=== PATIENT | female | born 1940 | race Caucasian/White ===

== ENCOUNTER → 2017-11-14 13:38 | Outpatient (CLI) | payer MEDICARE, SELFPAY ==
[2017-11-14 16:26] LABS: T4 Free Direct 0.95 ng/dL (0.76-1.46); Thyroid Stim Hormone (TSH) 2.07 uIU/mL (0.358-3.74)
[2017-11-14 17:25] LABS: T3 Total - Triiodothyronine 0.93 ng/mL (0.6-1.81)
== END ==
PROVIDERS: Family Provider Family Medicine; PCP Family Medicine; Visit Provider Family Medicine
DX: E03.9 Hypothyroidism, unspecified (principal)
CPT/HCPCS: 36415; 84439; 84443; 84480

== ENCOUNTER → 2018-03-19 11:15 | Outpatient (CLI) | payer MEDICARE, SELFPAY ==
[2018-03-19 15:53] LABS: T4 Free Direct 0.79 ng/dL (0.76-1.46); Thyroid Stim Hormone (TSH) 3.18 uIU/mL (0.358-3.74)
[2018-03-20 08:55] LABS: T3 Total - Triiodothyronine 0.83 ng/mL (0.6-1.81)
== END ==
PROVIDERS: Family Provider Family Medicine; PCP Family Medicine; Visit Provider Family Medicine
DX: E03.9 Hypothyroidism, unspecified (principal)
CPT/HCPCS: 36415; 84439; 84443; 84480

== ENCOUNTER → 2018-05-22 10:45 | Outpatient (CLI) | payer MEDICARE, SELFPAY ==
[2018-05-22 12:56] LABS: Hemoglobin A1c 6.9 % (4.2-6.3)
[2018-05-22 13:02] LABS: AST(SGOT) 26 U/L (15-37); Alanine Aminotransfer ALT/SGPT 30 U/L (13-56); Albumin, Serum 3.7 g/dL (3.2-5.0); Alkaline Phosphatase 52 U/L (45-117); Anion Gap 12 (5-15); BUN 12 mg/dL (7-18); BUN/Creat Ratio 14.5 RATIO (10-20); Calcium,Total 8.9 mg/dL (8.5-10.1); Chloride 106 mmol/L (98-107); Creatinine, Serum 0.83 mg/dL (0.55-1.02); EST Glomerular Filtration Rate 71 mL/min (>60); Est Glom Filt Rate - Afr Amer 86 mL/min (>60); Globulin 3.8 g/dL (2.2-4.2); Glucose 116 mg/dL (74-106); Potassium 4.2 mmol/L (3.5-5.1); Protein, Total 7.5 g/dL (6.4-8.2); Sodium Level 142 mmol/L (136-145); Thyroid Stim Hormone (TSH) 4.01 uIU/mL (0.358-3.74)
== END ==
PROVIDERS: Visit Provider Family Medicine
DX: E11.9 Type 2 diabetes mellitus without complications (principal); E03.9 Hypothyroidism, unspecified; I10 Essential (primary) hypertension
CPT/HCPCS: 36415; 80053; 83036; 84443

== ENCOUNTER → 2019-02-17 | Outpatient (CLI) | payer MEDICARE, SELFPAY ==
[2019-02-17 12:43] LABS: Absolute Lymphocyte Count 2.06 X10^3/ul (0.83-4.51); Absolute Neutrophil Count 2.6 X10^3/uL (2.0-7.7); Basophil# 0.03 X10^3/uL; Basophil% 0.5 % (0-1); Eosinophil# 0.32 X10^3/uL; Eosinophils% 5.8 % (0-5); Hemoglobin 12.6 g/dl (12.0-15.0); Lymphocyte # 2.06 X10^3/ul (4.0); Lymphocyte % 37.3 % (19-41); Mean Corp Hgb Conc 33.2 g/gl (32-36); Mean Corpuscular Hgb 30.1 pg (27.0-32.0); Mean Corpuscular Volume 90.9 fL (81-99); Mean Platelet Vol. 9.3 fl (6.2-12.0); Monocyte# 0.51 X10^3/uL; Monocyte% 9.2 % (0-10); Neutrophil # 2.61 X10^3/uL (2.7-7.7); Neutrophil % 47.2 % (47-70); Platelet Count 313 K/mm3 (150-450); RBC Distribution Width CV 15.6 % (11.6-14.6); RBC Distribution Width SD 51.7 fl (35.1-43.9); Red Blood Count 4.18 M/mm3 (4.2-5.4); White Blood Count 5.5 K/mm3 (4.4-11.0)
[2019-02-17 12:44] LABS: POSITIVE COUNT NO; POSITIVE DIFFERENTIAL NO; POSITIVE MORPHOLOGY NO
[2019-02-17 13:17] LABS: ALB/GLOB Ratio 0.9 RATIO (0.9-2.4); AST(SGOT) 19 U/L (15-37); Alanine Aminotransfer ALT/SGPT 34 U/L (13-56); Albumin, Serum 3.6 g/dL (3.2-5.0); Alkaline Phosphatase 58 U/L (45-117); Anion Gap 8 (5-15); BUN 14 mg/dL (7-18); Calcium,Total 8.9 mg/dL (8.5-10.1); Chloride 107 mmol/L (98-107); Cholesterol 215 mg/dL (200); Creatinine, Serum 0.88 mg/dL (0.55-1.02); EST Glomerular Filtration Rate 66 mL/min (>60); Est Glom Filt Rate - Afr Amer 80 mL/min (>60); Globulin 4.1 g/dL (2.2-4.2); Glucose 145 mg/dL (74-106); High Density Lipoprotein 82 mg/dL; Potassium 4.5 mmol/L (3.5-5.1); Protein, Total 7.7 g/dL (6.4-8.2); Sodium Level 140 mmol/L (136-145); T4 Free Direct 0.74 ng/dL (0.76-1.46); Triglycerides 79 mg/dL; Very Low Density Lipoprotein 16 mg/dL (5-40)
[2019-02-17 13:44] LABS: Hemoglobin A1c 7.7 % (4.2-6.3)
== END | disposition home or self-care (01) ==
LOC: BFHLAB 08:43
PROVIDERS: Family Provider Family Medicine; PCP Family Medicine; Visit Provider Family Medicine
DX: E11.9 Type 2 diabetes mellitus without complications (principal); E03.9 Hypothyroidism, unspecified; E78.5 Hyperlipidemia, unspecified; R53.83 Other fatigue; Z51.81 Encounter for therapeutic drug level monitoring
CPT/HCPCS: 36415; 80053; 80061; 83036; 84439; 84443; 84480; 85025

== ENCOUNTER → 2019-06-04 | Outpatient (CLI) | payer MEDICARE, SELFPAY ==
[2019-06-09 12:08] LABS: Lyme IgG P18 Ab Present (.); Lyme IgG P23 Ab Present (.); Lyme IgG P28 Ab Present (.); Lyme IgG P30 Ab Absent (.); Lyme IgG P39 Ab Absent (.); Lyme IgG P41 Ab Present (.); Lyme IgG P45 Ab Absent (.); Lyme IgG P58 Ab Absent (.); Lyme IgG P66 Ab Absent (.); Lyme IgG P93 Ab Present (.); Lyme IgM P23 Ab Present (.); Lyme IgM P39 Ab Absent (.); Lyme IgM P41 Ab Present (.)
[2019-06-17 11:13] LABS: Lyme IgG WB Interpretation Positive (.); Lyme IgM WB Interpretation Positive (.)
== END | disposition home or self-care (01) ==
LOC: BFHLAB 11:17
PROVIDERS: Family Provider Family Medicine; PCP Family Medicine; Visit Provider Family Medicine
DX: A69.20 Lyme disease, unspecified (principal)
CPT/HCPCS: 36415; 86617

== ENCOUNTER → 2019-11-05 14:35 | Outpatient (CLI) | payer MEDICARE, SELFPAY ==
[2019-11-05 15:48] LABS: Absolute Lymphocyte Count 2.74 X10^3/uL (0.83-4.51); Absolute Neutrophil Count 3.5 X10^3/uL (2.0-7.7); Basophil# 0.03 X10^3/uL; Basophil% 0.4 % (0-1); Eosinophil# 0.21 X10^3/uL; Hematocrit 37.7 % (37-47); Hemoglobin 12.5 g/dL (12.0-15.0); Lymphocyte # 2.74 X10^3/ul (4.0); Lymphocyte % 38.5 % (19-41); Mean Corp Hgb Conc 33.2 g/dL (32-36); Mean Corpuscular Volume 90.6 fL (81-99); Mean Platelet Vol. 9.3 fl (6.2-12.0); Monocyte# 0.65 X10^3/uL; Monocyte% 9.1 % (0-10); NRBC Flagged by Analyzer 0 % (0-5); Neutrophil # 3.47 X10^3/uL (2.7-7.7); Neutrophil % 48.9 % (47-70); Platelet Count 353 K/mm3 (150-450); RBC Distribution Width CV 15.3 % (11.6-14.6); RBC Distribution Width SD 50.5 fl (35.1-43.9); Red Blood Count 4.16 M/mm3 (4.2-5.4); White Blood Count 7.1 K/mm3 (4.4-11.0)
[2019-11-05 16:26] LABS: Vitamin B12 1188 pg/mL (211-911); Vitamin D,25 Hydroxy 26.6 ng/mL (29.95-100.01)
[2019-11-05 16:27] LABS: AST(SGOT) 21 U/L (15-37); Alanine Aminotransfer ALT/SGPT 30 U/L (13-56); Alkaline Phosphatase 69 U/L (45-117); Anion Gap 5 (5-15); BUN 14 mg/dL (7-18); BUN/Creat Ratio 16.3 RATIO (10-20); Calcium,Total 9.4 mg/dL (8.5-10.1); Chloride 105 mmol/L (98-107); Cholesterol 256 mg/dL (200); Creatinine, Serum 0.86 mg/dL (0.55-1.02); EST Glomerular Filtration Rate 68 mL/min (>60); Est Glom Filt Rate - Afr Amer 82 mL/min (>60); Free T3 2.7 pg/mL (2.18-3.98); Globulin 4.1 g/dL (2.2-4.2); Glucose 76 mg/dL (74-106); High Density Lipoprotein 82 mg/dL; Potassium 3.9 mmol/L (3.5-5.1); Protein, Total 8.1 g/dL (6.4-8.2); Sodium Level 138 mmol/L (136-145); T4 Free Direct 0.82 ng/dL (0.76-1.46); Thyroid Stim Hormone (TSH) 4.28 uIU/mL (0.358-3.74); Triglycerides 94 mg/dL; Very Low Density Lipoprotein 19 mg/dL (5-40)
[2019-11-11 12:07] LABS: Lyme IgG P18 Ab Present (.); Lyme IgG P23 Ab Present (.); Lyme IgG P28 Ab Present (.); Lyme IgG P30 Ab Absent (.); Lyme IgG P39 Ab Present (.); Lyme IgG P41 Ab Present (.); Lyme IgG P45 Ab Absent (.); Lyme IgG P58 Ab Absent (.); Lyme IgG P66 Ab Absent (.); Lyme IgG P93 Ab Absent (.); Lyme IgM P23 Ab Present (.); Lyme IgM P39 Ab Absent (.); Lyme IgM P41 Ab Absent (.)
[2019-11-11 17:10] LABS: Lyme IgG WB Interpretation Positive (.); Lyme IgM WB Interpretation Negative (.)
== END ==
PROVIDERS: PCP Family Medicine; Visit Provider Family Medicine
DX: E03.9 Hypothyroidism, unspecified (principal); E11.9 Type 2 diabetes mellitus without complications; E78.5 Hyperlipidemia, unspecified; E55.9 Vitamin D deficiency, unspecified; R76.8 Other specified abnormal immunological findings in serum; R53.83 Other fatigue; E53.8 Deficiency of other specified B group vitamins
CPT/HCPCS: 36415; 80053; 80061; 82306; 82607; 84439; 84443; 84481; 85025; 86617

== ENCOUNTER → 2020-07-21 14:14 | Outpatient (CLI) | payer MEDICARE, SELFPAY ==
[2020-07-21 16:21] LABS: Absolute Lymphocyte Count 2.95 X10^3/uL (0.83-4.51); Absolute Neutrophil Count 3.7 X10^3/uL (2.0-7.7); Basophil# 0.04 X10^3/uL; Basophil% 0.5 % (0-1); Eosinophil# 0.35 X10^3/uL; Eosinophils% 4.4 % (0-5); Hematocrit 39.7 % (37-47); Lymphocyte # 2.95 X10^3/ul (4.0); Lymphocyte % 37.4 % (19-41); Mean Corp Hgb Conc 32.7 g/dL (32-36); Mean Corpuscular Hgb 30.5 pg (27.0-32.0); Mean Corpuscular Volume 93.2 fL (81-99); Mean Platelet Vol. 9.8 fl (6.2-12.0); Monocyte# 0.84 X10^3/uL; Monocyte% 10.7 % (0-10); NRBC Flagged by Analyzer 0 % (0-5); Neutrophil # 3.69 X10^3/uL (2.7-7.7); Neutrophil % 46.9 % (47-70); Platelet Count 338 K/mm3 (150-450); RBC Distribution Width CV 15.2 % (11.6-14.6); RBC Distribution Width SD 51.9 fl (35.1-43.9); Red Blood Count 4.26 M/mm3 (4.2-5.4); White Blood Count 7.9 K/mm3 (4.4-11.0)
[2020-07-21 16:34] LABS: Vitamin D,25 Hydroxy 30.2 ng/mL
[2020-07-21 16:38] LABS: Free T3 2.4 pg/mL (2.18-3.98); Magnesium 2.5 mg/dL (1.6-2.6); T4 Free Direct 0.79 ng/dL (0.76-1.46)
[2020-07-31 03:07] LABS: Lyme IgG P18 Ab Present (.); Lyme IgG P23 Ab Present (.); Lyme IgG P28 Ab Present (.); Lyme IgG P30 Ab Absent (.); Lyme IgG P39 Ab Present (.); Lyme IgG P41 Ab Present (.); Lyme IgG P45 Ab Absent (.); Lyme IgG P58 Ab Present (.); Lyme IgG P66 Ab Absent (.); Lyme IgG P93 Ab Absent (.); Lyme IgM P23 Ab Present (.); Lyme IgM P39 Ab Absent (.); Lyme IgM P41 Ab Absent (.)
[2020-07-31 14:30] LABS: Lyme IgG WB Interpretation Positive (.); Lyme IgM WB Interpretation Negative (.)
== END ==
PROVIDERS: PCP Family Medicine; Visit Provider Family Medicine
DX: E11.9 Type 2 diabetes mellitus without complications (principal); E78.5 Hyperlipidemia, unspecified; S20.369A Insect bite (nonvenomous) of unspecified front wall of thorax, initial encounter; W57.XXXA Bitten or stung by nonvenomous insect and other nonvenomous arthropods, initial encounter; R53.83 Other fatigue; E03.9 Hypothyroidism, unspecified; M79.10 Myalgia, unspecified site; E83.42 Hypomagnesemia; E55.9 Vitamin D deficiency, unspecified
CPT/HCPCS: 36415; 82306; 83735; 84439; 84443; 84481; 85025; 86617

== ENCOUNTER → 2020-08-11 10:28 | Outpatient (CLI) | payer MEDICARE, SELFPAY ==
[2020-08-11 13:04] LABS: ALB/GLOB Ratio 0.9 RATIO (0.9-2.4); AST(SGOT) 25 U/L (15-37); Alanine Aminotransfer ALT/SGPT 29 U/L (13-56); Albumin, Serum 3.7 g/dL (3.2-5.0); Alkaline Phosphatase 66 U/L (45-117); Anion Gap 5 (5-15); BUN 12 mg/dL (7-18); BUN/Creat Ratio 13.1 RATIO (10-20); Calcium,Total 8.7 mg/dL (8.5-10.1); Chloride 106 mmol/L (98-107); Cholesterol 236 mg/dL (200); Creatinine, Serum 0.91 mg/dL (0.55-1.02); EST Glomerular Filtration Rate 63 mL/min (>60); Est Glom Filt Rate - Afr Amer 76 mL/min (>60); Glucose 153 mg/dL (74-106); High Density Lipoprotein 85 mg/dL; Potassium 4.6 mmol/L (3.5-5.1); Protein, Total 7.7 g/dL (6.4-8.2); Sodium Level 138 mmol/L (136-145); Triglycerides 77 mg/dL; Very Low Density Lipoprotein 15 mg/dL (5-40)
== END ==
PROVIDERS: PCP Family Medicine; Visit Provider Family Medicine
DX: E11.9 Type 2 diabetes mellitus without complications (principal); E78.5 Hyperlipidemia, unspecified; S20.369A Insect bite (nonvenomous) of unspecified front wall of thorax, initial encounter; W57.XXXA Bitten or stung by nonvenomous insect and other nonvenomous arthropods, initial encounter; R53.83 Other fatigue; E03.9 Hypothyroidism, unspecified; M79.10 Myalgia, unspecified site; E83.42 Hypomagnesemia
CPT/HCPCS: 36415; 80053; 80061

== ENCOUNTER → 2021-04-27 09:16 | Outpatient (CLI) | payer MEDICARE, SELFPAY ==
[2021-04-27 09:22] LABS: Lyme Ab Screen Interpretation REF LAB
[2021-04-27 12:13] LABS: Absolute Lymphocyte Count 2.39 X10^3/uL (0.83-4.51); Absolute Neutrophil Count 3.4 X10^3/uL (2.0-7.7); Basophil# 0.03 X10^3/uL; Basophil% 0.5 % (0-1); Hematocrit 38.5 % (37-47); Hemoglobin 12.9 g/dL (12.0-15.0); Lymphocyte # 2.39 X10^3/ul (0.83-4.51); Mean Corp Hgb Conc 33.5 g/dL (32-36); Mean Corpuscular Hgb 30.9 pg (27.0-32.0); Mean Corpuscular Volume 92.3 fL (81-99); Mean Platelet Vol. 9.6 fl (6.2-12.0); Monocyte# 0.56 X10^3/uL; Monocyte% 8.4 % (0-10); NRBC Flagged by Analyzer 0 % (0-5); Neutrophil # 3.43 X10^3/uL (2.7-7.7); Neutrophil % 51.8 % (47-70); Platelet Count 366 K/mm3 (150-450); RBC Distribution Width CV 15.3 % (11.6-14.6); RBC Distribution Width SD 52.1 fl (35.1-43.9); Red Blood Count 4.17 M/mm3 (4.2-5.4); White Blood Count 6.6 K/mm3 (4.4-11.0)
[2021-04-27 12:31] LABS: Vitamin B12 1747 pg/mL (211-911); Vitamin D,25 Hydroxy 37.8 ng/mL
[2021-04-27 12:40] LABS: ALB/GLOB Ratio 0.9 RATIO (0.9-2.4); AST(SGOT) 21 U/L (15-37); Alanine Aminotransfer ALT/SGPT 32 U/L (13-56); Albumin, Serum 3.7 g/dL (3.2-5.0); Alkaline Phosphatase 56 U/L (45-117); Anion Gap 6 (5-15); BUN 11 mg/dL (7-18); BUN/Creat Ratio 14.3 RATIO (10-20); Calcium,Total 8.8 mg/dL (8.5-10.1); Chloride 105 mmol/L (98-107); Creatinine, Serum 0.77 mg/dL (0.55-1.02); EST Glomerular Filtration Rate 76 mL/min (>60); Est Glom Filt Rate - Afr Amer 92 mL/min (>60); Free T3 2.4 pg/mL (2.18-3.98); Globulin 4.2 g/dL (2.2-4.2); Glucose 137 mg/dL (74-106); Potassium 4.5 mmol/L (3.5-5.1); Protein, Total 7.9 g/dL (6.4-8.2); Sodium Level 137 mmol/L (136-145); T4 Free Direct 0.77 ng/dL (0.76-1.46); Thyroid Stim Hormone (TSH) 4.57 uIU/mL (0.358-3.74)
[2021-04-27 12:58] LABS: Hemoglobin A1c 7.5 % (3.8-5.6)
== END ==
PROVIDERS: PCP Family Medicine; Referring Provider Family Medicine; Visit Provider Family Medicine
DX: E11.9 Type 2 diabetes mellitus without complications (principal); E03.9 Hypothyroidism, unspecified; S20.369A Insect bite (nonvenomous) of unspecified front wall of thorax, initial encounter; W57.XXXA Bitten or stung by nonvenomous insect and other nonvenomous arthropods, initial encounter; E53.8 Deficiency of other specified B group vitamins; D64.9 Anemia, unspecified; E55.9 Vitamin D deficiency, unspecified; Z51.81 Encounter for therapeutic drug level monitoring
CPT/HCPCS: 36415; 80053; 82306; 82607; 83036; 84439; 84443; 84481; 85025; 86618

== ENCOUNTER → 2022-07-20 | Outpatient (CLI) | payer MEDICARE, SELFPAY ==
[2022-07-20 15:45] LABS: Lyme Ab Screen Interpretation REF LAB
== END | disposition home or self-care (01) ==
PROVIDERS: PCP Family Medicine; Visit Provider Family Medicine
DX: B94.8 Sequelae of other specified infectious and parasitic diseases (principal)
CPT/HCPCS: 36415; 86618

== ENCOUNTER → 2022-12-11 | Outpatient (CLI) | payer MEDICARE, SELFPAY | END | disposition home or self-care (01) | PROVIDERS: PCP Family Medicine; Visit Provider Ophthalmology | DX: H16.002 Unspecified corneal ulcer, left eye (principal); B00.52 Herpesviral keratitis | CPT/HCPCS: 87070; 87101; 87205 ==

== ENCOUNTER 2023-02-22 16:08 | Observation (INO) | payer MEDICARE, SELFPAY ==
[2023-02-22 16:09] VITALS: BP 169/60; PULSE 67; RESP 18; TEMP 36.2; O2SAT 96
--- NOTE | 2023-02-22 17:27 | EKG12_ITS ---
Test Reason : Blood Pressure : / mmHG Vent. Rate : 059 BPM Atrial Rate : 059 BPM P-R Int : 130 ms QRS Dur : 088 ms QT Int : 454 ms P-R-T Axes : 072 050 080 degrees QTc Int : 449 ms Sinus bradycardia Otherwise normal ECG Confirmed by SALINAS DEXTER, ROXY ([id number]), associate editor GARY LERMA ([id number]) on 02/23/2023 1:27:12 PM Referred By: TARYN Confirmed By:ROXY NIÑO MD
[2023-02-22 17:32] VITALS: BMI 28.3
[2023-02-22] MEDS: 0.9% Normal Saline 1,000 ML 1000 ML IV (17:38)
[2023-02-22 17:50] LABS: Absolute Lymphocyte Count 2.06 X10^3/uL (0.83-4.51); Absolute Neutrophil Count 3.1 X10^3/uL (2.0-7.7); Basophil# 0.03 X10^3/uL; Basophil% 0.5 % (0-1); Eosinophil# 0.02 X10^3/uL; Eosinophils% 0.3 % (0-5); Hematocrit 35.7 % (37-47); Lymphocyte # 2.06 X10^3/ul (0.83-4.51); Mean Corp Hgb Conc 33.6 g/dL (32-36); Mean Corpuscular Hgb 30.9 pg (27.0-32.0); Mean Platelet Vol. 8.4 fl (6.2-12.0); Monocyte# 0.65 X10^3/uL; Monocyte% 11.1 % (0-10); NRBC Flagged by Analyzer 0 % (0-5); Neutrophil # 3.09 X10^3/uL (2.7-7.7); Neutrophil % 52.6 % (47-70); POSITIVE MORPHOLOGY YES; Platelet Count 485 K/mm3 (150-450); RBC Distribution Width CV 15.4 % (11.6-14.6); RBC Distribution Width SD 52.4 fl (35.1-43.9); Red Blood Count 3.88 M/mm3 (4.2-5.4); White Blood Count 5.9 K/mm3 (4.4-11.0)
[2023-02-22] MEDS: Ondansetron 4 MG/2 ML Vial IV (17:51)
[2023-02-22] MEDS: Acetaminophen 500 MG Tablet 1000 MG PO (17:51)
[2023-02-22 18:05] LABS: Anion Gap 6 (5-15); BUN 6 mg/dL (7-18); BUN/Creat Ratio 8.7 RATIO (10-20); Calcium,Total 9.1 mg/dL (8.5-10.1); Chloride 98 mmol/L (98-107); Creatinine, Serum 0.69 mg/dL (0.55-1.02); EST Glomerular Filtration Rate 87 mL/min (>60); Est Glom Filt Rate - Afr Amer 105 mL/min (>60); Estimated Creatinine Clearance 32.17 ml/min; Glucose 134 mg/dL (74-106); Potassium 3.9 mmol/L (3.5-5.1); Sodium Level 130 mmol/L (136-145)
[2023-02-22 18:06] LABS: Differential Indicated SCAN CRITERIA MET
--- NOTE | 2023-02-22 18:12 | RAD_ITS ---
INDICATION: Cough EXAMINATION/TECHNIQUE: X-RAY - XR Chest 2 Views COMPARISON: None FINDINGS: LINES/DEVICES: None. LUNGS: Emphysematous. Bilateral lung base atelectasis/scarring. No consolidation, edema or effusion. No pneumothorax. MEDIASTINUM AND CARDIOVASCULAR STRUCTURES: Cardiac silhouette not enlarged. Central airways and mediastinal contour are unremarkable. RAD/Chest PA and Lateral IMPRESSION: Emphysematous lungs with bilateral basilar atelectasis/scarring. Electronically Signed: Bro Frederick MD at 18:33 EDT ,
[2023-02-22 18:19] LABS: Differential Comment SCANNED
--- NOTE | 2023-02-22 18:20 | EX.ED.DYSGE1 ---
HPI <MARLYN Crenshaw - Last Filed: 02/22/23 19:50> History of Present Illness Chief Complaint: Fever Narrative Narrative: Patient is an 82-year-old female with history of atrial fibrillation on Eliquis, hypothyroidism, diabetes who presents to the emergency department for ongoing weakness, intermittent fevers and chills. Patient was recently admitted for 1 week at [facility] for pneumonia, sepsis. She was discharged 5 days ago, she is still currently on Levaquin and has 2 more days left. Over the last 3 to 4 days, she states that she feels more tired, fevers and chills. She denies any nausea vomiting. Denies any abdominal pain. PFS <MARLYN Crenshaw - Last Filed: 02/22/23 19:50> [facility] Medical History Atrial fibrillation Essential hypertension Hypothyroidism Mixed hyperlipidemia Non-rheumatic mitral regurgitation Non-rheumatic tricuspid valve insufficiency Paroxysmal atrial fibrillation Post-Lyme disease syndrome Syncope and collapse Type 2 diabetes mellitus Home Medications glipizide 10 mg tablet 10 mg PO DAILY diabetes 07/18/22 [History Last Taken 02/22/23] timolol 0.5 % eye drops 1 drp ophthalmic (eye) BID glaucoma 07/18/22 [History Last Taken 02/22/23] apple cider vinegar 600 mg capsule 600 mg PO .COMPLEX supplement 07/27/22 [History Last Taken Unknown] diltiazem HCl 120 mg capsule,24 hr,extended release 120 mg PO DAILY #90 caps 07/27/22 [Rx Last Taken 02/22/23] garlic 500 mg capsule 500 mg PO .2-3x week supplement 07/27/22 [History Last Taken Unknown] insulin glargine 100 unit/mL (3 mL) subcutaneous pen (Basaglar KwikPen U-100 Insulin) 20 unit subcut QAM diabetes 07/27/22 [History Last Taken 02/22/23] turmeric 400 mg capsule 400 mg PO .COMPLEX supplement 07/27/22 [History Last Taken 02/22/23] ubidecarenone-omega 3-vit E 25 mg-150 (90-60) mg-200 unit capsule (Co K-[id number] E-Fish Oil) 1 cap PO .COMPLEX supplement 07/27/22 [History Last Taken Unknown] ascorbic acid (vitamin C) 1,000 mg tablet 1 g PO DAILY supplement 10/26/22 [History Last Taken 02/22/23] cholecalciferol (vitamin D3) 125 mcg (5,000 unit) tablet 125 mcg PO DAILY supplement 10/26/22 [History Last Taken 02/22/23] cyanocobalamin (vitamin B-12) 5,000 mcg tablet, immediate and extend release 5,000 mcg PO DAILY supplement 10/26/22 [History Last Taken 02/22/23] apixaban 5 mg tablet (Eliquis) 5 mg PO BID #180 tabs 12/25/22 [Rx Last Taken 02/22/23] amoxicillin 875 mg-potassium clavulanate 125 mg tablet 1 tab PO BID antibiotic 02/22/23 [History Last Taken 02/22/23] pantoprazole 40 mg tablet,delayed release 40 mg PO DAILY GERD 02/22/23 [History Last Taken 02/22/23] Allergy/AdvReac Type Severity Reaction Status Date / Time No Known Allergies Allergy Verified 02/22/23 16:09 Family History Mother Cancer Liver Brother Diabetes Cancer Lung Sister Hypertension Cancer Skin Surgical History no surgical history Social History Smoking Status: Never smoker alcohol intake: never substance use type: does not use caffeine: Yes Type: coffee Number of servings: 2 ROS <MARLYN Crenshaw - Last Filed: 02/22/23 19:50> ROS ED ROS Narrative Constitutional: Negative for weight loss. Positive fever and chills, weakness Eyes: Negative for vision loss, vision change, double vision ENT: Negative for any sore throat, ear pain, congestion Cardiovascular: Negative for any chest pain, tightness, palpitations Respiratory: Negative for any cough, sputum production, hemoptysis, dyspnea, dyspnea on exertion, orthopnea Gastrointestinal: Negative for any abdominal pain, nausea, vomiting, diarrhea, constipation, blood in stool, blood in vomit : Negative for any urinary frequency, dysuria, retention, blood in urine Muscle skeletal: Negative for any muscle joint pain, stiffness, myalgias, arthralgias, neck pain, back pain Neurological: Negative for any headache, syncope, numbness or tingling, dizziness Skin: Negative for any rashes, lumps, itching, abrasions, lacerations Psychiatric: Negative for any depression, anxiety, stress, suicidal ideation, homicidal ideation Hematologic: Negative for any easy bruising, excessive bruising, easy bleeding Allergies: Negative for any eczema, hives, rash EXAM <MARLYN Crenshaw - Last Filed: 02/22/23 19:50> Physical Exam Narrative Exam Narrative: Vital signs reviewed. Patient appears generally well. HEET: Head normocephalic atraumatic, TMs clear bilaterally. Posterior pharynx is clear, moist mucous membranes. Nares clear bilaterally. Neck: Supple with no lymphadenopathy or tenderness. No signs of meningismus, negative jolt sign. Cardiac: Regular rate and rhythm no murmurs gallops or rubs, equal peripheral pulses bilaterally. Respiratory: Lungs clear to auscultation bilaterally. Diminished in the bases. No chest tenderness. Abdomen: Soft, nontender, nondistended. No abdominal bruit or pulsatile masses. No hepatosplenomegaly Extremities: No peripheral edema, no signs of gross trauma or deformity. Active full range of motion of all extremities. Neuro: Cranial nerves II through XII intact, no focal neurological deficits. Skin: Clean dry and intact with no rash, purpura, petechiae, vesicles or pustules. Backs/flank: No CVA tenderness, no midline spinal tenderness, no deformity. Psych: Normal mood and affect. No SI, HI or acute psychosis. Const Vital Signs: 02/22/23 16:09 02/22/23 17:57 02/22/23 19:08 Temperature 97.2 F L Temperature Source Temporal Pulse Rate 67 61 Respiratory Rate 18 18 Respiratory Effort Normal Non-Labored Respiratory Pattern Normal Blood Pressure 169/60 H 104/70 Blood Pressure Mean 96 81 Pulse Ox 96 99 Oxygen Delivery Method Room Air Room Air <Dr. Bro Coppola MD - Last Filed: 02/22/23 23:09> Physical Exam Const Vital Signs: 02/22/23 16:09 02/22/23 17:57 02/22/23 19:08 Temperature 97.2 F L Temperature Source Temporal Pulse Rate 67 61 Respiratory Rate 18 18 Respiratory Effort Normal Non-Labored Respiratory Pattern Normal Blood Pressure 169/60 H 104/70 Blood Pressure Mean 96 81 Pulse Ox 96 99 Oxygen Delivery Method Room Air Room Air [facility] <MARLYN Crenshaw - Last Filed: 02/22/23 19:50> [facility] Lab Data Labs: Laboratory Results - last 24 hr 02/22/23 02/22/23 17:21 17:21 WBC 5.9 RBC 3.88 L Hgb 12.0 Hct 35.7 L MCV 92.0 MCH 30.9 MCHC 33.6 RDW Std Deviation 52.4 H RDW Coeff of Arturo 15.4 H Plt Count 485 H MPV 8.4 Immature Gran % (Auto) 0.500 Neut % (Auto) 52.6 Lymph % (Auto) 35.0 [place] % (Auto) 11.1 H Eos % (Auto) 0.3 Baso % (Auto) 0.5 Absolute Neuts (auto) 3.1 Absolute Lymphs (auto) 2.06 Nucleated RBC % 0 Differential Comment SCANNED Sodium 130 L Potassium 3.9 Chloride 98 Carbon Dioxide 26.0 Anion Gap 6 BUN 6 L Creatinine 0.69 Estim Creat Clear Calc 32.17 Est GFR (MDRD) Af Amer 105 Est GFR (MDRD) Non-Af 87 BUN/Creatinine Ratio 8.7 L Glucose 134 H Calcium 9.1 Radiography Diagnostic Testing: Clinical Impression(s) from Imaging Studies Chest X-Ray 02/22/23 18:12 IMPRESSION: Emphysematous lungs with bilateral basilar atelectasis/scarring. Electronically Signed: Bro Frederick MD at 18:33 EDT , EKG Sinus bradycardia: Comments: Sinus bradycardia, rate of 59 bpm, PA interval 130 ms, QRS duration 88 ms, no acute ST elevation, no acute infarct noted. Treatment and Re-Evaluation :: Patient appears well, patient appears nontoxic, vital signs are stable. All radiologic examinations were read, reviewed by the emergency department attending. From these reads, a plan of care will be put in place. Patient presents the emergency department for 3 days of worsening shortness of breath, fever, weakness. Patient states she is having difficulty doing her daily activities. She is concerned that she is having symptoms when she was at the hospital in [facility]. Patient did receive a full work-up including 2 sets of blood cultures. Patient's chest x-ray showed chronic changes, no acute process. Laboratory values show a normal CBC, patient's chemistries showed a hyponatremia with a sodium of 130, patient did receive COVID-19 and influenza screening, COVID-19 was positive. This would explain all the patient's symptoms of weakness, fever, chills, increased shortness of breath. I spoke with the patient's , this patient's son at length, they noticed that she is declining, she is not eating and drinking well, she is having difficulty doing daily activities. The patient will feel more comfortably admitted to hospital. After the patient's recent hospital admission for 1 week, only being out of the house for 5 days, and not doing well for 2 with a 5 days, I do believe it appropriate for admission. Spoke with hospitalist, there is no evidence of any bacterial pneumonia, patient will receive a urinalysis, patient stable for admission. <Dr. Bro Coppola MD - Last Filed: 02/22/23 23:09> [facility] Lab Data Labs: Laboratory Results - last 24 hr 02/22/23 02/22/23 17:21 17:21 WBC 5.9 RBC 3.88 L Hgb 12.0 Hct 35.7 L MCV 92.0 MCH 30.9 MCHC 33.6 RDW Std Deviation 52.4 H RDW Coeff of Arturo 15.4 H Plt Count 485 H MPV 8.4 Immature Gran % (Auto) 0.500 Neut % (Auto) 52.6 Lymph % (Auto) 35.0 [place] % (Auto) 11.1 H Eos % (Auto) 0.3 Baso % (Auto) 0.5 Absolute Neuts (auto) 3.1 Absolute Lymphs (auto) 2.06 Nucleated RBC % 0 Differential Comment SCANNED Sodium 130 L Potassium 3.9 Chloride 98 Carbon Dioxide 26.0 Anion Gap 6 BUN 6 L Creatinine 0.69 Estim Creat Clear Calc 32.17 Est GFR (MDRD) Af Amer 105 Est GFR (MDRD) Non-Af 87 BUN/Creatinine Ratio 8.7 L Glucose 134 H Calcium 9.1 Radiography Diagnostic Testing: Clinical Impression(s) from Imaging Studies Chest X-Ray 02/22/23 18:12 IMPRESSION: Emphysematous lungs with bilateral basilar atelectasis/scarring. Electronically Signed: Bro Frederick MD at 18:33 EDT , Treatment and Re-Evaluation :: Patient appears well, patient appears nontoxic, vital signs are stable. All radiologic examinations were read, reviewed by the emergency department attending. From these reads, a plan of care will be put in place. Patient presents the emergency department for 3 days of worsening shortness of breath, fever, weakness. Patient states she is having difficulty doing her daily activities. She is concerned that she is having symptoms when she was at the hospital in [facility]. Patient did receive a full work-up including 2 sets of blood cultures. Patient's chest x-ray showed chronic changes, no acute process. Laboratory values show a normal CBC, patient's chemistries showed a hyponatremia with a sodium of 130, patient did receive COVID-19 and influenza screening, COVID-19 was positive. This would explain all the patient's symptoms of weakness, fever, chills, increased shortness of breath. I spoke with the patient's , this patient's son at length, they noticed that she is declining, she is not eating and drinking well, she is having difficulty doing daily activities. The patient will feel more comfortably admitted to hospital. After the patient's recent hospital admission for 1 week, only being out of the house for 5 days, and not doing well for 2 with a 5 days, I do believe it appropriate for admission. Spoke with hospitalist, there is no evidence of any bacterial pneumonia, patient will receive a urinalysis, patient stable for admission. Anat Patient was seen by me. I agree with the above extenders note, note was done by both me and the PA as I may have edited some of the above. Discharge Plan Dx/Rx/DC Orders Clinical Impression: COVID-19, Weakness, Acute hyponatremia Disposition Disposition: [facility] Discharge Date/Time: 02/22/23 20:27
[2023-02-22 19:08] VITALS: BP 104/70; PULSE 61; RESP 18; O2SAT 99
--- NOTE | 2023-02-22 19:31 | PCM.HP.STD ---
[facility] - General General Date of Admission: 02/22/23 Date of Service: 02/22/23 Chief Complaint: weakness HPI Narrative SYLVAIN PERLA, is a 82 F with a significant history of atrial fibrillation on Cardizem and Eliquis; and diabetes mellitus who presents to the emergency department with weakness. Patient is so weak that she thought she was going to fall and the weakness has been getting progressively worse. Two weeks ago patient had nausea, a lot of dry heaving and occasional vomiting. Also she had diarrhea. She was admitted at [facility] and while at the hospital she developed pneumonia. She reported that imaging at that time showed that she had some viral GI infection. Her GI symptoms has since stopped. She was discharged from home 5 days ago and ever since she has felt weaker and weaker. Although she had high-grade fever when she was hospitalized at [facility]; now she has low-grade fever. She reports chills at night and diaphoresis. She has dysgeusia. Reportedly she was discharged on Augmentin and azithromycin. She has finished taking the course of azithromycin and she has 4 more days left of the Augmentin. She reports poor food and fluid intake. Occasionally she has no shortness of breath. A day before presentation her O2 sat was 89% but on the day of presentation her O2 sat was 93; and 95%. She reported that while at [facility] she was in A-fib with RVR and the plan was for her to have cardioversion. However she was told to come back in a week after her pneumonia has resolved. However, at this time she will see her local doctors and not go back to [facility] for the cardioversion. On presentation she was found to be positive for COVID-19. Of note patient reports that about a year ago she was diagnosed with COVID-19. At that time she took Paxlovid. She has not received the COVID-19 vaccination. [facility] Medical History Atrial fibrillation Essential hypertension Hypothyroidism Mixed hyperlipidemia Non-rheumatic mitral regurgitation Non-rheumatic tricuspid valve insufficiency Paroxysmal atrial fibrillation Post-Lyme disease syndrome Syncope and collapse Type 2 diabetes mellitus Home Medications glipizide 10 mg tablet 10 mg PO DAILY diabetes 07/18/22 [History Last Taken 02/22/23] timolol 0.5 % eye drops 1 drp ophthalmic (eye) BID glaucoma 07/18/22 [History Last Taken 02/22/23] apple cider vinegar 600 mg capsule 600 mg PO .COMPLEX supplement 07/27/22 [History Last Taken Unknown] diltiazem HCl 120 mg capsule,24 hr,extended release 120 mg PO DAILY #90 caps 07/27/22 [Rx Last Taken 02/22/23] garlic 500 mg capsule 500 mg PO .2-3x week supplement 07/27/22 [History Last Taken Unknown] insulin glargine 100 unit/mL (3 mL) subcutaneous pen (Basaglar KwikPen U-100 Insulin) 20 unit subcut QAM diabetes 07/27/22 [History Last Taken 02/22/23] turmeric 400 mg capsule 400 mg PO .COMPLEX supplement 07/27/22 [History Last Taken 02/22/23] ubidecarenone-omega 3-vit E 25 mg-150 (90-60) mg-200 unit capsule (Co [id number] E-Fish Oil) 1 cap PO .COMPLEX supplement 07/27/22 [History Last Taken Unknown] ascorbic acid (vitamin C) 1,000 mg tablet 1 g PO DAILY supplement 10/26/22 [History Last Taken 02/22/23] cholecalciferol (vitamin D3) 125 mcg (5,000 unit) tablet 125 mcg PO DAILY supplement 10/26/22 [History Last Taken 02/22/23] cyanocobalamin (vitamin B-12) 5,000 mcg tablet, immediate and extend release 5,000 mcg PO DAILY supplement 10/26/22 [History Last Taken 02/22/23] apixaban 5 mg tablet (Eliquis) 5 mg PO BID #180 tabs 12/25/22 [Rx Last Taken 02/22/23] amoxicillin 875 mg-potassium clavulanate 125 mg tablet 1 tab PO BID antibiotic 02/22/23 [History Last Taken 02/22/23] pantoprazole 40 mg tablet,delayed release 40 mg PO DAILY GERD 02/22/23 [History Last Taken 02/22/23] Allergy/AdvReac Type Severity Reaction Status Date / Time No Known Allergies Allergy Verified 02/22/23 16:09 Family History Mother Cancer Liver Brother Diabetes Cancer Lung Sister Hypertension Cancer Skin Surgical History no surgical history no surgical history Social History Smoking Status: Never smoker alcohol intake: never substance use type: does not use caffeine: Yes Type: coffee Number of servings: 2 ROS ROS Narrative Pertinent positives and pertinent negatives as noted in HPI. All other systems were reviewed and are negative Vital Signs Vital Signs Vital Signs: 02/22/23 16:09 02/22/23 17:57 02/22/23 19:08 Temperature 97.2 F L Temperature Source Temporal Pulse Rate 67 61 Respiratory Rate 18 18 Respiratory Effort Normal Non-Labored Respiratory Pattern Normal Blood Pressure 169/60 H 104/70 Blood Pressure Mean 96 81 Pulse Ox 96 99 Oxygen Delivery Method Room Air Room Air Weight Weight: 68.1 kg Body Mass Index (BMI) 28.3 Physical Exam Narrative Physical exam: General: Well-nourished, well-developed. Head: Normocephalic, atraumatic, no tenderness Eyes: Vision is grossly intact. EOMI ENT, no trauma, mildly dry mucous membranes, no rhinorrhea Neck: Nontender, No thyromegaly. CVS: Regular rate and rhythm. S1-S2 present. No murmur, gallop or rub. Respiratory : Rales at right base;, chest wall nontender Abdomen: Soft, nontender, nondistended, normal bowel sounds, no masses : Deferred Back: Nontender, no CVA tenderness, no midline spinal tenderness, deformities, step-offs Extremities: Nontender full range of motion, no trauma Skin: Normal color, no trauma, abrasions Neuro: Alert, oriented, cranial nerves II through XII grossly intact. Psychiatry: Normal mood. Normal affect. Not depressed. Not anxious. Results Lab / Micro Data Result Diagrams: 02/22/23 17:21 02/22/23 17:21 Labs: Laboratory Results - last 24 hr 02/22/23 17:21: WBC 5.9, RBC 3.88 L, Hgb 12.0, Hct 35.7 L, MCV 92.0, MCH 30.9, MCHC 33.6, RDW Std Deviation 52.4 H, RDW Coeff of Arturo 15.4 H, Plt Count 485 H, MPV 8.4, Immature Gran % (Auto) 0.500, Neut % (Auto) 52.6, Lymph % (Auto) 35.0, [place] % (Auto) 11.1 H, Eos % (Auto) 0.3, Baso % (Auto) 0.5, Absolute Neuts (auto) 3.1, Absolute Lymphs (auto) 2.06, Nucleated RBC % 0, Differential Comment SCANNED 02/22/23 17:21: Sodium 130 L, Potassium 3.9, Chloride 98, Carbon Dioxide 26.0, Anion Gap 6, BUN 6 L, Creatinine 0.69, Estim Creat Clear Calc 32.17, Est GFR (MDRD) Af Amer 105, Est GFR (MDRD) Non-Af 87, BUN/Creatinine Ratio 8.7 L, Glucose 134 H, Calcium 9.1 Micro: Microbiology 02/22/23 17:21 Nasal Secretion SARS-CoV-2 & FLU Antigen (Rapid) - Final SARS-CoV-2 (COVID 19) Radiology Impression Chest X-Ray 02/22/23 18:12 IMPRESSION: Emphysematous lungs with bilateral basilar atelectasis/scarring. Electronically Signed: Bro Frederick MD at 18:33 EDT , Assessment & Plan Assessment/Plan (1) Weakness: (2) COVID-19: PLAN: Plan Generalized weakness PT and OT to evaluate and treat. Case management consult. COVID-19 infection Impression of chest x-ray by radiologist: Emphysematous lungs with bilateral basilar atelectasis/scarring. Interpretation of chest x-ray by hospitalist: Agrees with radiology interpretation. On room air. Monitor. Hyponatremia Sodium of 130. Of note BUN is not elevated. BUN is rather low. Patient has mild dry mucous membrane and she has a poor intake. Additional level 2 weeks ago patient had vomiting and diarrhea which Contributed to her hyponatremia. Gentle IV hydration. Trend BMP. History of A-fib Stable Cardizem and Eliquis continued. Recent pneumonia: Continue Augmentin. Prophylaxis: Not indicated as patient is on Eliquis for A-fib and Eliquis has been continued. Charges/Coding Visit Charges Inpatient E&M: 41370 Init Hosp L2
[2023-02-22 19:54] VITALS: BP 137/69; PULSE 60; RESP 18; TEMP 36.5; O2SAT 97
[2023-02-22 19:58] LABS: Bacteria 0 SEEN /hpf (None Seen); Mucous, Urine 0 SEEN /hpf (<or=2+); Red Blood Cells-Urine 0 SEEN /hpf (0-5); Squamous Epithelial Cells - UA 0 SEEN /hpf (5-10); White Blood Cells 0 SEEN /hpf (0-5)
[2023-02-22 19:59] LABS: Color, Urine Yellow (Yellow); Glucose, Dipstick Normal (Normal); Ketone-Dipstick Negative (Negative); Leukocyte Esterase-Dipstick Negative /ul (Negative); Nitrite-Dipstick Negative (Negative); Occult Blood-Urine Negative /ul (Negative); Protein-Dipstick Negative (Negative); Specific Gravity, Urine 1.005 (1.002-1.030); Urine Bilirubin Dipstick Negative (Negative); Urine Clarity Clear (Clear); Urine Urobilinogen Normal (Normal)
[2023-02-22 20:31] VITALS: BMI 26.9
[2023-02-22 20:40] VITALS: BP 128/57; PULSE 60; RESP 18; TEMP 36.8; O2SAT 96
[2023-02-22] MEDS: APIXABAN 5 MG TABLET PO (22:55)
[2023-02-22] MEDS: 0.9% Saline Lock 10 ML Syringe IV (22:55)
[2023-02-22] MEDS: 0.9% Normal Saline 1,000 ML 75 ML IV (22:56)
[2023-02-22 23:30] VITALS: BP 135/71; PULSE 60; RESP 18; TEMP 36.4; O2SAT 97
[2023-02-22 23:56] LABS: Bedside Glucose 100 mg/dL (74-106)
[2023-02-23] VITALS (8 sets, daily range): BP systolic 88–133; BP diastolic 49–74; PULSE 65–91; RESP 18–20; TEMP 36.6–37.4; O2SAT 92–98
[2023-02-23 06:57] LABS: Absolute Lymphocyte Count 1.69 X10^3/uL (0.83-4.51); Absolute Neutrophil Count 4.5 X10^3/uL (2.0-7.7); Basophil# 0.03 X10^3/uL; Basophil% 0.4 % (0-1); Eosinophil# 0.01 X10^3/uL; Eosinophils% 0.1 % (0-5); Hematocrit 34.4 % (37-47); Hemoglobin 11.7 g/dL (12.0-15.0); Lymphocyte # 1.69 X10^3/ul (0.83-4.51); Lymphocyte % 24.6 % (19-41); Mean Corpuscular Hgb 31.5 pg (27.0-32.0); Mean Corpuscular Volume 92.7 fL (81-99); Mean Platelet Vol. 8.6 fl (6.2-12.0); Monocyte# 0.58 X10^3/uL; Monocyte% 8.4 % (0-10); NRBC Flagged by Analyzer 0 % (0-5); Neutrophil # 4.54 X10^3/uL (2.7-7.7); Neutrophil % 66.1 % (47-70); Platelet Count 477 K/mm3 (150-450); RBC Distribution Width CV 15.8 % (11.6-14.6); RBC Distribution Width SD 53.4 fl (35.1-43.9); Red Blood Count 3.71 M/mm3 (4.2-5.4); White Blood Count 6.9 K/mm3 (4.4-11.0)
[2023-02-23 07:19] LABS: ALB/GLOB Ratio 0.7 RATIO (0.9-2.4); AST(SGOT) 78 U/L (15-37); Alanine Aminotransfer ALT/SGPT 154 U/L (13-56); Albumin, Serum 2.8 g/dL (3.2-5.0); Alkaline Phosphatase 157 U/L (45-117); Anion Gap 8 (5-15); BUN 5 mg/dL (7-18); BUN/Creat Ratio 7.6 RATIO (10-20); Calcium,Total 8.5 mg/dL (8.5-10.1); Chloride 103 mmol/L (98-107); Creatinine, Serum 0.66 mg/dL (0.55-1.02); EST Glomerular Filtration Rate 91 mL/min (>60); Est Glom Filt Rate - Afr Amer 110 mL/min (>60); Estimated Creatinine Clearance 32.17 ml/min; Globulin 4.3 g/dL (2.2-4.2); Glucose 137 mg/dL (74-106); Protein, Total 7.1 g/dL (6.4-8.2); Sodium Level 133 mmol/L (136-145)
[2023-02-23 07:21] LABS: Bedside Glucose 140 mg/dL (74-106)
--- NOTE | 2023-02-23 07:35 | PCM.PN.HOSP ---
Reason for Visit Reason for Visit: Weakness Subjective Subjective Patient is an 82-year-old white female who presented to the emergency department at [facility] on 02/22/2023 with a chief complaint of generalized weakness. She indicated on presentation she was so weak that she thought she was going to fall and the weakness has progressively been getting worse. Patient indicated approximately 2 weeks ago she had a lot of nausea with dry heaving and occasional vomiting along with diarrhea. She was admitted at [facility] and while at the hospital developed pneumonia. She reported that she was diagnosed with some sort of GI viral infection at that time as well. Her GI symptoms have since resolved and she was discharged home 5 days ago and ever since that point time she has felt progressively weaker and weaker. She had high-grade fevers at [place] per her report however now she is complaining of low-grade fevers. She is complaining of chills and diaphoresis and dysgeusia. She was discharged on Augmentin and azithromycin and is finished her azithromycin and has 4 more days of the Augmentin. Her oral intake is poor due to decreased appetite. She has no shortness of breath. She was diagnosed with A-fib with RVR while at the hospital and is to have an outpatient cardioversion done in the near future once her acute illnesses had resolved. On presentation she was found to be positive for COVID-19 infection. She has had previous COVID-19 infection and was administered Paxil of it at that time. She is never been vaccinated. Vital signs are currently stable and she is on room air. Her CBC shows no white count or left shift. She has a very mild anemia and a thrombocytosis that is mild as well. Her chemistry panel shows mild hyponatremia which is improving since admission from 10 30-. Renal function is normal. She has mild transaminitis. Her UA was unremarkable. Chest x-ray showed only emphysematous changes and bilateral lung base scarring. I evaluated her in the day after admission. She was seen on the medical floor. Oral intake was improving and she states she really ate the first meal in the last few days this morning. Stated tasted good and feels like she is on the mend. Food intake has improved as well. Still somewhat weak and awaiting physical therapy and Occupational Therapy to evaluate her. Objective Data Objective Data Vital Signs: Vital Signs Temp Pulse Resp BP Pulse Ox O2 Del Method 99.4 F H 81 18 133/55 H 95 Room Air 02/23/23 06:53 02/23/23 06:53 02/23/23 06:53 02/23/23 06:53 02/23/23 06:53 02/23/23 06:53 Oxygen Delivery Method Room Air Weight: 64.7 kg Body Mass Index (BMI) 26.9 Intake & Output: Intake and Output for Last 24 Hours 02/21/23 02/22/23 02/23/23 23:59 23:59 23:59 Intake Total 1200 / 1200 200 / 200 Balance 1200 / 1200 200 / 200 Lab / Micro Data Result Diagrams: 02/23/23 06:35 02/23/23 06:35 Labs: Laboratory Results - last 24 hr 02/22/23 17:21: WBC 5.9, RBC 3.88 L, Hgb 12.0, Hct 35.7 L, MCV 92.0, MCH 30.9, MCHC 33.6, RDW Std Deviation 52.4 H, RDW Coeff of Arturo 15.4 H, Plt Count 485 H, MPV 8.4, Immature Gran % (Auto) 0.500, Neut % (Auto) 52.6, Lymph % (Auto) 35.0, [place] % (Auto) 11.1 H, Eos % (Auto) 0.3, Baso % (Auto) 0.5, Absolute Neuts (auto) 3.1, Absolute Lymphs (auto) 2.06, Nucleated RBC % 0, Differential Comment SCANNED 02/22/23 17:21: Sodium 130 L, Potassium 3.9, Chloride 98, Carbon Dioxide 26.0, Anion Gap 6, BUN 6 L, Creatinine 0.69, Estim Creat Clear Calc 32.17, Est GFR (MDRD) Af Amer 105, Est GFR (MDRD) Non-Af 87, BUN/Creatinine Ratio 8.7 L, Glucose 134 H, Calcium 9.1 02/22/23 19:52: Urine Color Yellow, Urine Clarity Clear, Urine pH 7.0, Ur Specific [place] 1.005, Urine Protein Negative, Urine Glucose (UA) Normal, Urine Ketones Negative, Urine Occult Blood Negative, Urine Nitrite Negative, Urine Bilirubin Negative, Urine Urobilinogen Normal, Ur Leukocyte Esterase Negative, Urine RBC 0 SEEN, Urine WBC 0 SEEN, Ur Squamous Epith Cells 0 SEEN, Urine Bacteria 0 SEEN, Urine Mucus 0 SEEN 02/22/23 23:12: POC Glucose 100 02/23/23 06:35: WBC 6.9, RBC 3.71 L, Hgb 11.7 L, Hct 34.4 L, MCV 92.7, MCH 31.5, MCHC 34.0, RDW Std Deviation 53.4 H, RDW Coeff of Arturo 15.8 H, Plt Count 477 H, MPV 8.6, Immature Gran % (Auto) 0.400, Neut % (Auto) 66.1, Lymph % (Auto) 24.6, [place] % (Auto) 8.4, Eos % (Auto) 0.1, Baso % (Auto) 0.4, Absolute Neuts (auto) 4.5, Absolute Lymphs (auto) 1.69, Nucleated RBC % 0 02/23/23 06:35: Sodium 133 L, Potassium 4.0, Chloride 103, Carbon Dioxide 22.0, Anion Gap 8, BUN 5 L, Creatinine 0.66, Estim Creat Clear Calc 32.17, Est GFR (MDRD) Af Amer 110, Est GFR (MDRD) Non-Af 91, BUN/Creatinine Ratio 7.6 L, Glucose 137 H, Calcium 8.5, Total Bilirubin 0.40, AST 78 H, ALT 154 H, Alkaline Phosphatase 157 H, Total Protein 7.1, Albumin 2.8 L, Globulin 4.3 H, Albumin/Globulin Ratio 0.7 L 02/23/23 06:52: POC Glucose 140 H Micro: Microbiology 02/22/23 17:21 Nasal Secretion SARS-CoV-2 & FLU Antigen (Rapid) - Final SARS-CoV-2 (COVID 19) Radiography Diagnostic Testing: Radiology Impression Chest X-Ray 02/22/23 18:12 IMPRESSION: Emphysematous lungs with bilateral basilar atelectasis/scarring. Electronically Signed: Bro Frederick MD at 18:33 EDT , Physical Exam Const alert, oriented x3, no apparent distress and well nourished Constitutional Narrative: Very pleasant, elderly, white female sitting up in a chair at the bedside, appears comfortable and nontoxic, watching television HEENT head/scalp atraumatic and moist oral mucous membranes HEENT Narrative: No thrush, Mallampati 2 Head and Scalp: normocephalic Resp normal respiratory effort, no retractions, no use of accessory muscles and clear to auscultation bilaterally Auscultation: Negative for rales, rhonchi or wheezes Cardio regular rate, regular rhythm, S1 normal heart sound, S2 normal heart sound, no murmurs, no rub, no gallops and no clicks GI normal to inspection, nondistended, normoactive bowel sounds, soft to palpation and non-tender Extremity no clubbing, cyanosis or edema Extremity Narrative: 2+ pedal pulses Neuro oriented x3, moves all extremities and no focal motor deficits Speech: speech normal Psych affect normal Psych Narrative: Very pleasant, appropriately interactive Assessment & Plan Assessment/Plan (1) COVID-19: (2) Weakness: (3) Acute hyponatremia: (4) Paroxysmal atrial fibrillation: (5) Transaminitis: (6) Thrombocytosis: PLAN: Plan Generalized weakness -Likely due to decreased p.o. intake and COVID-19 infection -PT/OT consultation -Case management/social work consultation for discharge planning and placement needs -Encourage mobility is much as possible to defend against further deconditioning Acute COVID-19 infection -Overall patient is fairly asymptomatic other than decreased p.o. intake and generalized weakness -Not requiring oxygen -Continue supportive care and therapy services Mild hyponatremia -Anticipate hypovolemic hyponatremia as p.o. intake has been poor per patient report and decreased appetite with likely decreased solute intake -Trending up -Continue to monitor -No intervention needed at this time Poor p.o. intake -Suspect related to acute COVID-19 infection -At risk for malnutrition -Add supplements Transaminitis -Likely related to acute COVID-19 infection. -This is new -We will trend -No acute intervention needed at this time or further work-up Thrombocytosis -Likely acute phase reactant -Continue to monitor Paroxysmal atrial fibrillation -Continue with apixaban -Continue diltiazem -Heart rates are controlled at this time -Rhythm is -Refer to outpatient cardiology for follow-up DM-2 -A.m. fasting blood sugars 137 -Home insulin basal dose is 20 units in the morning -Current dose 10 units due to decreased p.o. intake -Add SSI-medium dose -Accu-Cheks as ordered GERD -Continue PPI Recent pneumonia -Continue Augmentin to complete 4 more days History of hypothyroidism -Patient is not on any thyroid supplement -Check TSH DVT prophylaxis -Continue Eliquis CODE STATUS Full code Charges/Coding Visit Charges Inpatient E&M: 68347 Subs Hosp L2
[2023-02-23] MEDS: dilTIAZem CD 120 MG Capsule PO (09:16)
[2023-02-23] MEDS: Timolol 0.5% 5ML OPTH.BTL 1 DRP OPHTHALMIC (09:16)
[2023-02-23] MEDS: Cyanocobalamin 500 MCG Tablet PO (09:16)
[2023-02-23] MEDS: Cholecalciferol (Vit D3) 125 MCG CAPSULE (5,000 UNITS) PO (09:16)
[2023-02-23] MEDS: Pantoprazole Sodium 40 MG Tablet PO (09:16)
[2023-02-23] MEDS: Amox/Clavulanate 875 MG Tablet PO ×2 (09:16→16:38)
[2023-02-23] MEDS: APIXABAN 5 MG TABLET PO ×2 (09:16→22:30)
[2023-02-23] MEDS: Ascorbic Acid 500 MG Tablet 1000 MG PO (09:16)
[2023-02-23] MEDS: Insulin Glargine-YFGN 100 UNIT/ML Pen 10 UNIT SC (09:17)
[2023-02-23] MEDS: Insulin Lispro 100 UNIT/ML INSULN.PEN SC (11:34)
--- NOTE | 2023-02-23 11:56 | CASEMGMT ---
Per Bedside nurse, pt has a living will and HCPOA naming her spouse and is aware documents are not on file at [facility]. KIMBER Simmons
[2023-02-23 12:18] LABS: Bedside Glucose 162 mg/dL (74-106)
--- NOTE | 2023-02-23 13:26 | CASEMGMT ---
Noted PT did not recommend therapy, although OT did. TC to pt room, pt answered, discussed therapy options. Pt states she does not want any home therapy or therapy in general. She states her dil assists her at home. She denies any homegoing needs. WELL[place] LANDIS explained MART[employer] form, patient voiced understanding. Second witness verified pt understanding. Pt provided with a copy of signed MARTINEZ form. Patient had no further questions or concerns at this time.
[2023-02-23] MEDS: 0.9% Normal Saline 1,000 ML 75 ML IV (13:27)
[2023-02-23 17:12] LABS: Bedside Glucose 137 mg/dL (74-106)
[2023-02-23 23:11] LABS: Bedside Glucose 291 mg/dL (74-106)
[2023-02-24 02:02] VITALS: BP 116/76; PULSE 68; RESP 18; TEMP 36.6; O2SAT 96
[2023-02-24] MEDS: 0.9% Normal Saline 1,000 ML 75 ML IV (02:04)
[2023-02-24] MEDS: Insulin Lispro 100 UNIT/ML INSULN.PEN SC ×2 (07:00→11:30)
[2023-02-24 07:02] VITALS: BP 135/63; PULSE 74; RESP 18; TEMP 36.9; O2SAT 96
[2023-02-24 07:15] LABS: Absolute Lymphocyte Count 2.63 X10^3/uL (0.83-4.51); Absolute Neutrophil Count 5.4 X10^3/uL (2.0-7.7); Basophil# 0.04 X10^3/uL; Basophil% 0.5 % (0-1); Eosinophil# 0.02 X10^3/uL; Eosinophils% 0.2 % (0-5); Hematocrit 36.4 % (37-47); Hemoglobin 12.5 g/dL (12.0-15.0); Lymphocyte # 2.63 X10^3/ul (0.83-4.51); Lymphocyte % 30.2 % (19-41); Mean Corp Hgb Conc 34.3 g/dL (32-36); Mean Corpuscular Hgb 32.4 pg (27.0-32.0); Mean Corpuscular Volume 94.3 fL (81-99); Mean Platelet Vol. 8.6 fl (6.2-12.0); Monocyte# 0.59 X10^3/uL; Monocyte% 6.8 % (0-10); NRBC Flagged by Analyzer 0 % (0-5); Neutrophil # 5.39 X10^3/uL (2.7-7.7); Platelet Count 492 K/mm3 (150-450); RBC Distribution Width CV 16.1 % (11.6-14.6); RBC Distribution Width SD 55.5 fl (35.1-43.9); Red Blood Count 3.86 M/mm3 (4.2-5.4); White Blood Count 8.7 K/mm3 (4.4-11.0)
[2023-02-24 07:28] LABS: Bedside Glucose 151 mg/dL (74-106)
[2023-02-24 08:01] LABS: Anion Gap 6 (5-15); BUN 5 mg/dL (7-18); BUN/Creat Ratio 7.3 RATIO (10-20); Calcium,Total 8.8 mg/dL (8.5-10.1); Chloride 106 mmol/L (98-107); Creatinine, Serum 0.68 mg/dL (0.55-1.02); EST Glomerular Filtration Rate 87 mL/min (>60); Est Glom Filt Rate - Afr Amer 106 mL/min (>60); Estimated Creatinine Clearance 32.17 ml/min; Glucose 148 mg/dL (74-106); Potassium 4.3 mmol/L (3.5-5.1); Sodium Level 136 mmol/L (136-145)
[2023-02-24] MEDS: Amox/Clavulanate 875 MG Tablet PO (09:24)
[2023-02-24] MEDS: Pantoprazole Sodium 40 MG Tablet PO (09:24)
[2023-02-24] MEDS: APIXABAN 5 MG TABLET PO (09:25)
[2023-02-24] MEDS: Ascorbic Acid 500 MG Tablet 1000 MG PO (09:25)
[2023-02-24] MEDS: Timolol 0.5% 5ML OPTH.BTL 1 DRP OPHTHALMIC (09:25)
[2023-02-24] MEDS: Cholecalciferol (Vit D3) 125 MCG CAPSULE (5,000 UNITS) PO (09:25)
[2023-02-24] MEDS: Insulin Glargine-YFGN 100 UNIT/ML Pen 10 UNIT SC (09:25)
[2023-02-24] MEDS: dilTIAZem CD 120 MG Capsule PO (09:25)
[2023-02-24] MEDS: Cyanocobalamin 500 MCG Tablet PO (09:25)
[2023-02-24 09:33] VITALS: BP 125/52; PULSE 82; RESP 18; TEMP 36.9; O2SAT 96
[2023-02-24 10:07] LABS: Bedside Glucose 164 mg/dL (74-106)
[2023-02-24 11:53] LABS: Bedside Glucose 220 mg/dL (74-106)
--- NOTE | 2023-02-24 11:59 | DS.PCM_ITS ---
Providers Date of Admission: 02/22/23 Date of Discharge: 02/24/23 Primary Care Physician: Dr. Rylie Wilder DO Reason For Visit: GENERALIZED WEAKNESS Diagnosis Discharge Diagnosis (1) COVID-19: Status: Acute Code(s): U07.1 - COVID-19 (2) Weakness: Status: Acute Code(s): R53.1 - Weakness (3) Acute hyponatremia: Status: Acute Code(s): E87.1 - Hypo-osmolality and hyponatremia (4) Paroxysmal atrial fibrillation: Status: Acute Code(s): I48.0 - Paroxysmal atrial fibrillation (5) Transaminitis: Status: Acute Code(s): R74.01 - Elevation of levels of liver transaminase levels (6) Thrombocytosis: Status: Acute Code(s): D75.839 - Thrombocytosis, unspecified Medications at Discharge Home Medications glipizide 10 mg tablet 10 mg PO DAILY diabetes 07/18/22 timolol 0.5 % eye drops 1 drp ophthalmic (eye) BID glaucoma 07/18/22 apple cider vinegar 600 mg capsule 600 mg PO .COMPLEX supplement 07/27/22 diltiazem HCl 120 mg capsule,24 hr,extended release 120 mg PO DAILY #90 caps 07/27/22 garlic 500 mg capsule 500 mg PO .2-3x week supplement 07/27/22 insulin glargine 100 unit/mL (3 mL) subcutaneous pen (Basaglar KwikPen U-100 Insulin) 20 unit subcut QAM diabetes 07/27/22 turmeric 400 mg capsule 400 mg PO .COMPLEX supplement 07/27/22 ubidecarenone-omega 3-vit E 25 mg-150 (90-60) mg-200 unit capsule (Co S-60-Atfpqoc E-Fish Oil) 1 cap PO .COMPLEX supplement 07/27/22 ascorbic acid (vitamin C) 1,000 mg tablet 1 g PO DAILY supplement 10/26/22 cholecalciferol (vitamin D3) 125 mcg (5,000 unit) tablet 125 mcg PO DAILY supplement 10/26/22 cyanocobalamin (vitamin B-12) 5,000 mcg tablet, immediate and extend release 5,000 mcg PO DAILY supplement 10/26/22 apixaban 5 mg tablet (Eliquis) 5 mg PO BID #180 tabs 12/25/22 pantoprazole 40 mg tablet,delayed release 40 mg PO DAILY GERD 02/22/23 amoxicillin 875 mg-potassium clavulanate 125 mg tablet 1 tab PO BID antibiotic #1 TAB 02/24/23 Hospital Course Operations None Procedures None Summary of Care Provided Minutes Spent on Discharge: 25 Hospital Course: Patient is an 82-year-old white female who presented to the emergency department at [facility] on 02/22/2023 with a chief complaint of generalized weakness.? She indicated on presentation she was so weak that she thought she was going to fall and the weakness has progressively been getting worse.? Patient indicated approximately 2 weeks ago she had a lot of nausea with dry heaving and occasional vomiting along with diarrhea.? She was admitted at [facility] and while at the hospital developed pneumonia.? She reported that she was diagnosed with some sort of GI viral infection at that time as well.? Her GI symptoms have since resolved and she was discharged home 5 days ago and ever since that point time she has felt progressively weaker and weaker.? She had high-grade fevers at [place] per her report however now she is complaining of low-grade fevers.? She is complaining of chills and diaphoresis and dysgeusia.? She was discharged on Augmentin and azithromycin and is finished her azithromycin and has 4 more days of the Augmentin.? Her oral intake had been poor due to decreased appetite.? She had no shortness of breath.? She was diagnosed with A-fib with RVR while at the hospital and is to have an outpatient cardioversion done in the near future once her acute illnesses had resolved.? She was in normal sinus rhythm for her hospitalization. On presentation she was found to be positive for COVID-19 infection.? She has had previous COVID-19 infection and was administered Paxil of it at that time.? She is never been vaccinated.? Vital signs were stable and she remained on room air through her entire hospital course.? Her CBC shows no white count or left shift.? She has a very mild anemia and a thrombocytosis that is mild as well her resolved. I suspect her thrombocytosis was related to acute phase reactant.? Her chemistry panel showed mild hyponatremia which resolved at the time of discharge and I suspect it was hypovolemic hyponatremia due to decreased p.o. intake. Renal function was normal.? She has mild transaminitis from her COVID-19 infection.? Her UA was unremarkable.? Chest x-ray showed only emphysematous changes and bilateral lung base scarring. She was initially treated with IV fluids due to her decreased p.o. intake and evaluated by physical and Occupational Therapy. She did not qualify for any other treatment for COVID-19 as she was not hypoxic. P.o. intake and improved dramatically and she was tolerating diet well without any issues both on 02/23/2023 and 02/25/2020 3 in the morning. She did develop a sore throat overnight from 02 23-02 24 and on appearance it looked slightly red and viral in nature with no exudates. We did obtain a rapid strep and that was negative. Culture was pending and I will monitor these after discharge however we will hold off on any further antibiotic use that she is already on Augmentin for her previous pneumonia which she is to complete on 02/26/2023. We instructed her to stop taking this dose after that day as she was treated while she was hospitalized. She was seen by therapy services and they did not recommend any ongoing physical therapy. Occupational Therapy recommended some outpatient therapy however the patient indicated she did not want any further outpatient and did not feel that she needed it. She was able to be discharged home in stable condition on 02/24/2023. I did advise her that she can use some lozenges or a numbing spray for her throat if needed. Her pharyngitis did not appear to be affecting her oral intake. No medication changes were made during her hospital course. Discharge diagnoses: Generalized weakness-improving Acute COVID-19 infection Mild hyponatremia-resolved Pharyngitis secondary to COVID-19 infection Poor p.o. intake-resolved Transaminitis secondary to COVID-19 infection Thrombocytosis Paroxysmal atrial fibrillation DM-2 GERD Recent pneumonia History of hypothyroidism Physical Exam Narrative Patient did state that her throat was sore and she wanted to stay another night because of this. We discussed that was flat likely viral related to her acute COVID-19 and it did not seem to be inhibiting her oral intake. We did discuss that she may use lozenges. We did check a rapid strep which was negative and indicated we will discharge her later in the day until she can get adequate help at home. She did not require any therapy other than occupational therapy and stated she did not want any therapy at all. Const alert, oriented x3, no apparent distress, average body habitus, no limitations, healthy appearing and well nourished Constitutional Narrative: Very pleasant, elderly, white female sitting up in bed, appears comfortable and nontoxic, watching television and talking on the phone General Appearance: cooperative, comfortable, well kempt and well developed Orientation / Consciousness: awake, oriented to person, oriented to place and oriented to time Exam Limitations: no limitations HEENT normocephalic, head/scalp atraumatic, hearing grossly normal bilaterally and moist oral mucous membranes HEENT Narrative: Mild erythema on the superior posterior pharynx, no exudates, Mallampati 2, no thrush Eyes PERRL, EOMs intact bilaterally and conjunctivae normal Resp normal respiratory effort, no retractions, no use of accessory muscles and clear to auscultation bilaterally Auscultation: Negative for rales, rhonchi or wheezes Cardio regular rate, regular rhythm, S1 normal heart sound, S2 normal heart sound, no murmurs, no rub, no gallops and no clicks GI normal to inspection, nondistended, normoactive bowel sounds, soft to palpation and non-tender Extremity no clubbing, cyanosis or edema Extremity Narrative: 2+ pedal pulses Neuro oriented x3, CN's II-XII intact bilaterally, moves all extremities, no focal motor deficits and no sensory deficits noted Neuro Narrative: Mild proximal generalized weakness but strength is fairly good overall Speech: speech normal Psych affect normal Psych Narrative: Very pleasant, appropriately interactive Weight / BMI Weight Weight: 64.7 kg Body Mass Index (BMI) 26.9 ABG / Lab / Microbiology Data Result Diagrams: 02/24/23 06:43 02/24/23 06:43 Laboratory: Laboratory Results - last 24 hr 02/23/23 11:32: POC Glucose 162 H 02/23/23 16:36: POC Glucose 137 H 02/23/23 22:28: POC Glucose 291 H 02/24/23 06:43: WBC 8.7, RBC 3.86 L, Hgb 12.5, Hct 36.4 L, MCV 94.3, MCH 32.4 H, MCHC 34.3, RDW Std Deviation 55.5 H, RDW Coeff of Arturo 16.1 H, Plt Count 492 H, MPV 8.6, Immature Gran % (Auto) 0.300, Neut % (Auto) 62.0, Lymph % (Auto) 30.2, [place] % (Auto) 6.8, Eos % (Auto) 0.2, Baso % (Auto) 0.5, Absolute Neuts (auto) 5.4, Absolute Lymphs (auto) 2.63, Nucleated RBC % 0 02/24/23 06:43: Sodium 136, Potassium 4.3, Chloride 106, Carbon Dioxide 24.0, Anion Gap 6, BUN 5 L, Creatinine 0.68, Estim Creat Clear Calc 32.17, Est GFR (MDRD) Af Amer 106, Est GFR (MDRD) Non-Af 87, BUN/Creatinine Ratio 7.3 L, Glucose 148 H, Calcium 8.8 02/24/23 06:59: POC Glucose 151 H 02/24/23 09:24: POC Glucose 164 H 02/24/23 11:29: POC Glucose 220 H Microbiology: Microbiology 02/24/23 09:15 Interface Orders Group A Streptococcus Rapid Screen - Preliminary 02/22/23 17:21 Nasal Secretion SARS-CoV-2 & FLU Antigen (Rapid) - Final SARS-CoV-2 (COVID 19) D/C Instructions Discharge Diet: 1800 Calorie Control Diet Discharge Activity: Return to Normal Activity Meaningful Use Info Meaningful Use Diagnoses (Choose all that apply): None applicable Discharge Plan Admission Admit Date/Time: 02/22/23 19:40 Primary Reason for Your Visit: Generalized weakness Attending Provider: Jo Abarca Primary Care Provider: Rylie Wilder Consulting Providers: Frederick Devries Instructions Additional Instructions / Restrictions: 1. Avoid contact with people for 5 days through 02/25/2023 and please wear a mask when around people through 03/02/2023 to avoid the spread of COVID-19 infection 2. Your rapid strep test is negative. Your sore throat is likely viral related to COVID-19. Okay to utilize lozenges or sprays to help with comfort. Discharge Orders/Prescriptions Prescriptions: Continued turmeric 400 mg capsule 400 mg PO .COMPLEX Rx Instructions: 400 mg orally 2-3 x per week; Co Q-94-[place] E-Fish Oil 25-150-200 mg-mg-unit capsule 1 cap PO .COMPLEX Rx Instructions: 1 cap orally 2-3 x week; garlic 500 mg capsule 500 mg PO .2-3x week apple cider vinegar 600 mg capsule 600 mg PO .COMPLEX Rx Instructions: 600 mg orally 2-3x week; diltiazem HCl 120 mg capsule,extended release 24 hr 120 mg PO DAILY Qty: 90 3RF cholecalciferol (vitamin D3) 125 mcg (5,000 unit) tablet 125 mcg PO DAILY cyanocobalamin (vitamin B-12) 5,000 mcg tablet, IR and ER, biphasic 5,000 mcg PO DAILY glipizide 10 mg tablet 10 mg PO DAILY timolol 0.5 % drops 1 drp ophthalmic (eye) BID insulin glargine [Basaglar KwikPen U-100 Insulin] 100 unit/mL (3 mL) insulin pen 20 unit subcut QAM ascorbic acid (vitamin C) 1,000 mg tablet 1 g PO DAILY pantoprazole 40 mg tablet,delayed release (DR/EC) 40 mg PO DAILY Label Comments: TAKE 40 MILLIGRAMS (1 TABLET,DELAYED RELEASE (DR/EC)) ORALLY DAILY amoxicillin-pot clavulanate 875-125 mg tablet 1 tab PO BID Qty: 1 0RF Label Comments: TAKE 1 TABLET BY MOUTH TWICE A DAY Rx Instructions: Okay to stop antibiotic after doses on 02/26/2023 Eliquis 5 mg tablet 5 mg PO BID Qty: 180 3RF Referrals / Follow Up: Rylie Wilder DO [Primary Care Provider] - Within 2 Weeks Disposition Disposition (needs filled in before D/C Order can be placed): Home, Self Care Charges/Coding Visit Charges Inpatient E&M: 73497 Disch Hosp
[2023-02-24 12:03] VITALS: BP 113/56; PULSE 75; RESP 18; TEMP 37.3; O2SAT 96
== END 2023-02-24 13:10 | disposition home or self-care (01) ==
LOC: ED 19:50 → MS3 20:05
PROVIDERS: Nurse Practitioner; Admitting Provider Hospitalist; Emergency Provider Emergency Medicine; PCP Family Medicine; Visit Provider Internal Medicine
DX: U07.1 COVID-19 (principal); I48.0 Paroxysmal atrial fibrillation; E11.9 Type 2 diabetes mellitus without complications; Z79.4 Long term (current) use of insulin; E87.1 Hypo-osmolality and hyponatremia; D64.9 Anemia, unspecified; K21.9 Gastro-esophageal reflux disease without esophagitis; I10 Essential (primary) hypertension; R74.01 Elevation of levels of liver transaminase levels; Z79.01 Long term (current) use of anticoagulants; Z79.84 Long term (current) use of oral hypoglycemic drugs; E78.2 Mixed hyperlipidemia; Z79.899 Other long term (current) drug therapy; E03.9 Hypothyroidism, unspecified
CPT/HCPCS: 36415; 71046; 80048; 80053; 81001; 82962; 85025; 87040; 87428; 87880; 93005; 96361; 96374; 97162; 97166; 99221; 99252; 99284; J7030; A4216; G0378; G0463; J2405

== ENCOUNTER → 2023-03-07 | Outpatient (CLI) | payer MEDICARE, SELFPAY ==
[2023-03-07 17:39] LABS: Absolute Neutrophil Count 2.8 X10^3/uL (2.0-7.7); Basophil# 0.05 X10^3/uL; Basophil% 0.6 % (0-1); Eosinophil# 0.14 X10^3/uL; Eosinophils% 1.7 % (0-5); Hematocrit 33.3 % (37-47); Hemoglobin 10.9 g/dL (12.0-15.0); Lymphocyte % 53.5 % (19-41); Mean Corp Hgb Conc 32.7 g/dL (32-36); Mean Corpuscular Hgb 30.6 pg (27.0-32.0); Mean Corpuscular Volume 93.5 fL (81-99); Mean Platelet Vol. 8.8 fl (6.2-12.0); Monocyte# 0.74 X10^3/uL; Monocyte% 9.2 % (0-10); NRBC Flagged by Analyzer 0 % (0-5); Neutrophil # 2.75 X10^3/uL (2.7-7.7); Neutrophil % 34.3 % (47-70); Platelet Count 487 K/mm3 (150-450); RBC Distribution Width CV 15.4 % (11.6-14.6); RBC Distribution Width SD 52.6 fl (35.1-43.9); Red Blood Count 3.56 M/mm3 (4.2-5.4)
[2023-03-07 18:17] LABS: ALB/GLOB Ratio 0.6 RATIO (0.9-2.4); AST(SGOT) 30 U/L (15-37); Alanine Aminotransfer ALT/SGPT 35 U/L (13-56); Albumin, Serum 3.1 g/dL (3.2-5.0); Alkaline Phosphatase 79 U/L (45-117); Anion Gap 6 (5-15); BUN 6 mg/dL (7-18); BUN/Creat Ratio 7.9 RATIO (10-20); Calcium,Total 9.1 mg/dL (8.5-10.1); Chloride 103 mmol/L (98-107); Creatinine, Serum 0.76 mg/dL (0.55-1.02); EST Glomerular Filtration Rate 77 mL/min (>60); Est Glom Filt Rate - Afr Amer 94 mL/min (>60); Globulin 4.8 g/dL (2.2-4.2); Glucose 168 mg/dL (74-106); Potassium 4.4 mmol/L (3.5-5.1); Protein, Total 7.9 g/dL (6.4-8.2); Sodium Level 135 mmol/L (136-145)
[2023-03-13 00:06] LABS: Lyme IgG P18 Ab Present (.); Lyme IgG P23 Ab Present (.); Lyme IgG P28 Ab Absent (.); Lyme IgG P30 Ab Absent (.); Lyme IgG P39 Ab Present (.); Lyme IgG P41 Ab Present (.); Lyme IgG P45 Ab Absent (.); Lyme IgG P58 Ab Present (.); Lyme IgG P66 Ab Absent (.); Lyme IgG P93 Ab Present (.); Lyme IgG WB Interpretation Positive (.); Lyme IgM P23 Ab Present (.); Lyme IgM P39 Ab Present (.); Lyme IgM P41 Ab Present (.); Lyme IgM WB Interpretation Positive (.)
== END | disposition home or self-care (01) ==
LOC: BFHLAB 15:07
PROVIDERS: PCP Family Medicine; Referring Provider Family Medicine; Visit Provider Family Medicine
DX: B94.8 Sequelae of other specified infectious and parasitic diseases (principal); Z51.81 Encounter for therapeutic drug level monitoring
CPT/HCPCS: 36415; 80053; 85025; 86617

== ENCOUNTER → 2023-07-26 | Outpatient (CLI) | payer MEDICARE, SELFPAY ==
[2023-07-26 15:42] LABS: ALB/GLOB Ratio 0.9 RATIO (0.9-2.4); AST(SGOT) 22 U/L (15-37); Alanine Aminotransfer ALT/SGPT 26 U/L (13-56); Albumin, Serum 3.6 g/dL (3.2-5.0); Alkaline Phosphatase 62 U/L (45-117); Anion Gap 7 (5-15); BUN 12 mg/dL (7-18); BUN/Creat Ratio 13.8 RATIO (10-20); Calcium,Total 9.2 mg/dL (8.5-10.1); Chloride 102 mmol/L (98-107); Creatinine, Serum 0.87 mg/dL (0.55-1.02); EST Glomerular Filtration Rate 66 mL/min (>60); Est Glom Filt Rate - Afr Amer 80 mL/min (>60); Globulin 4.1 g/dL (2.2-4.2); Glucose 117 mg/dL (74-106); Potassium 4.2 mmol/L (3.5-5.1); Protein, Total 7.7 g/dL (6.4-8.2); Sodium Level 137 mmol/L (136-145)
[2023-08-01 00:06] LABS: Lyme IgG P18 Ab Present (.); Lyme IgG P23 Ab Absent (.); Lyme IgG P28 Ab Absent (.); Lyme IgG P30 Ab Absent (.); Lyme IgG P39 Ab Present (.); Lyme IgG P41 Ab Present (.); Lyme IgG P45 Ab Present (.); Lyme IgG P58 Ab Present (.); Lyme IgG P66 Ab Absent (.); Lyme IgG P93 Ab Present (.); Lyme IgG WB Interpretation Positive (.); Lyme IgM P23 Ab Present (.); Lyme IgM P39 Ab Absent (.); Lyme IgM P41 Ab Absent (.); Lyme IgM WB Interpretation Negative (.)
== END | disposition home or self-care (01) ==
LOC: MTLAB 11:51
PROVIDERS: PCP Family Medicine; Referring Provider Family Medicine; Visit Provider Family Medicine
DX: B94.8 Sequelae of other specified infectious and parasitic diseases (principal); Z51.81 Encounter for therapeutic drug level monitoring
CPT/HCPCS: 36415; 80053; 86617

== ENCOUNTER → 2024-02-04 | Outpatient (CLI) | payer MEDICARE, SELFPAY ==
[2024-02-04 10:31] LABS: Absolute Lymphocyte Count 2.54 X10^3/uL (0.83-4.51); Basophil# 0.05 X10^3/uL; Basophil% 0.8 % (0-1); Eosinophil# 0.29 X10^3/uL; Eosinophils% 4.4 % (0-5); Hemoglobin 11.9 g/dL (12.0-15.0); Lymphocyte # 2.54 X10^3/ul (0.83-4.51); Lymphocyte % 38.6 % (19-41); Mean Corp Hgb Conc 33.1 g/dL (32-36); Mean Corpuscular Hgb 30.7 pg (27.0-32.0); Mean Corpuscular Volume 92.8 fL (81-99); Mean Platelet Vol. 9.5 fl (6.2-12.0); Monocyte# 0.73 X10^3/uL; Monocyte% 11.1 % (0-10); NRBC Flagged by Analyzer 0 % (0-5); Neutrophil # 2.95 X10^3/uL (2.7-7.7); Neutrophil % 44.8 % (47-70); Platelet Count 365 K/mm3 (150-450); RBC Distribution Width CV 15.7 % (11.6-14.6); RBC Distribution Width SD 53.3 fl (35.1-43.9); Red Blood Count 3.88 M/mm3 (4.2-5.4); White Blood Count 6.6 K/mm3 (4.4-11.0)
[2024-02-04 11:08] LABS: Vitamin B12 > 2000 pg/mL (211-911)
[2024-02-04 11:09] LABS: International Normalized Ratio 1.1
[2024-02-04 11:14] LABS: AST(SGOT) 21 U/L (15-37); Alanine Aminotransfer ALT/SGPT 23 U/L (13-56); Albumin, Serum 3.7 g/dL (3.2-5.0); Alkaline Phosphatase 59 U/L (45-117); Anion Gap 4 (5-15); BUN 14 mg/dL (7-18); BUN/Creat Ratio 18.3 RATIO (10-20); Calcium,Total 9.1 mg/dL (8.5-10.1); Chloride 106 mmol/L (98-107); Creatinine, Serum 0.76 mg/dL (0.55-1.02); EST Glomerular Filtration Rate 76 mL/min (>60); Est Glom Filt Rate - Afr Amer 93 mL/min (>60); Ferritin 38 ng/mL (8-252); Free T3 2.6 pg/mL (2.18-3.98); Globulin 3.8 g/dL (2.2-4.2); Glucose 93 mg/dL (74-106); Iron 76 ug/dL (50-170); Potassium 4.4 mmol/L (3.5-5.1); Protein, Total 7.5 g/dL (6.4-8.2); Sodium Level 138 mmol/L (136-145); T4 Free Direct 0.72 ng/dL (0.76-1.46); Thyroid Stim Hormone (TSH) 4.55 uIU/mL (0.358-3.74)
== END | disposition home or self-care (01) ==
LOC: MTLAB 09:08
PROVIDERS: PCP Family Medicine; Referring Provider Family Medicine; Visit Provider Family Medicine
DX: E11.9 Type 2 diabetes mellitus without complications (principal); E53.8 Deficiency of other specified B group vitamins; D64.9 Anemia, unspecified; E61.1 Iron deficiency; R53.83 Other fatigue; Z79.01 Long term (current) use of anticoagulants; R79.1 Abnormal coagulation profile
CPT/HCPCS: 36415; 80053; 82607; 82728; 83540; 84439; 84443; 84481; 85025; 85610; 85730

== ENCOUNTER 2024-07-04 10:13 | Emergency (ER) | payer MEDICARE, SELFPAY ==
[2024-07-04 10:14] VITALS: BP 181/64; PULSE 76; RESP 15; TEMP 36.4; O2SAT 97; BMI 29.4
--- NOTE | 2024-07-04 11:17 | CT_ITS ---
STUDY: CT BRAIN WITHOUT CONTRAST REASON FOR EXAM: Female, 83 years old. Dizziness RADIATION DOSAGE (If Supplied By Facility): CTDIvol = ( 44.99 ) mGy, DLP = ( 745.49 ) mGycm TECHNIQUE: Transaxial CT imaging of the brain was performed without administration of intravenous contrast material. Individualized dose optimization techniques were used for this CT. COMPARISON: No relevant priors. FINDINGS: Normal soft tissue structures. Normal calvarium. There is mild cerebral atrophy with widening of the extra-axial spaces and ventricular dilatation. There are areas of decreased attenuation within the white matter tracts of the supratentorial brain, consistent with microvascular disease changes. Normal basal ganglia and thalami. Normal brainstem. Normal cerebellum. There is no intracranial hemorrhage. There are no findings of an acute ischemic infarction. Abscess right calcification of the cavernous portion of the internal carotid arteries and vertebral arteries. Partial opacification of the ethmoid sinuses bilaterally. CT/Brain/Head without Contrast IMPRESSION: Chronic involutional changes of the brain. Electronically Signed: Juarez Pickering MD at 12:28 EDT ,
--- NOTE | 2024-07-04 11:18 | EDS_ITS ---
HPI History of Present Illness Chief Complaint: Hypertension Informant: patient and spouse/S.O. Narrative Narrative: 83 old female evaluated about 5 hours after she started having dizziness. She states she woke up with it and then when she got out of bed it was worse and lasted about 10 minutes and went away. He felt like things were spinning and moving she felt nauseated no vomiting. She was concerned about the symptoms even though they resolved, checked her blood pressure and it was 167 systolic which is 30-40 points higher than she is used to. She checked her multiple times on the way here, the last check it was 147 systolic. She does not take blood pressure medication but she took one of her husbands losartan because she was concerned about the numbers. She does not have a headache or tinnitus or an earache she has a minor cough but does not feel like she has a cold she has not had a cold/infection in the last several weeks. She denies any recent head injury. When she woke up to go to the bathroom at 330 this morning she does not recall having any of the dizziness. She has had no problems walking since this episode. She denies any new numbness or weakness in any extremity or problems talking or understanding others. She has paroxysmal atrial fibrillation. She states she often feels it when she goes into it, she thinks she felt it briefly this morning with some fluttering and a little bit of chest pressure but that went away and has not recurred. She takes apixaban and diltiazem for that reason. [facility] Medical History Paroxysmal atrial fibrillation Non-rheumatic mitral regurgitation Non-rheumatic tricuspid valve insufficiency Syncope and collapse Post-Lyme disease syndrome Atrial fibrillation Mixed hyperlipidemia Essential hypertension Hypothyroidism Type 2 diabetes mellitus Home Medications ?Medication ?Instructions ?Recorded ?Last Taken ?Type glipizide 10 mg tablet 10 mg PO DAILY diabetes 07/18/22 02/22/23 History timolol 0.5 % eye drops 1 drp ophthalmic (eye) BID glaucoma 07/18/22 02/22/23 History apple cider vinegar 600 mg capsule 600 mg PO .COMPLEX supplement 07/27/22 Unknown History garlic 500 mg capsule 500 mg PO .2-3x week supplement 07/27/22 Unknown History insulin glargine 100 unit/mL (3 20 unit subcut QAM diabetes 07/27/22 02/22/23 History mL) subcutaneous pen (Basaglar KwikPen U-100 Insulin) turmeric 400 mg capsule 400 mg PO .COMPLEX supplement 07/27/22 02/22/23 History ubidecarenone-omega 3-vit E 25 1 cap PO .COMPLEX supplement 07/27/22 Unknown History mg-150 (90-60) mg-200 unit capsule (Co [id number] E-Fish Oil) ascorbic acid (vitamin C) 1,000 mg 1 g PO DAILY supplement 10/26/22 02/22/23 History tablet cholecalciferol (vitamin D3) 125 125 mcg PO DAILY supplement 10/26/22 02/22/23 History mcg (5,000 unit) tablet cyanocobalamin (vitamin B-12) 5,000 mcg PO DAILY supplement 10/26/22 02/22/23 History 5,000 mcg tablet, immediate and extend release apixaban 5 mg tablet (Eliquis) 5 mg PO BID #180 tabs 12/25/22 02/22/23 Rx pantoprazole 40 mg tablet,delayed 40 mg PO DAILY GERD 02/22/23 02/22/23 History release amoxicillin 875 mg-potassium 1 tab PO BID antibiotic #1 TAB 02/24/23 02/22/23 Rx clavulanate 125 mg tablet diltiazem HCl 120 mg capsule,24 120 mg PO DAILY #90 caps 07/23/23 Unknown Rx hr,extended release meclizine 25 mg tablet 25 mg PO Q8H PRN PRN Dizziness #15 07/04/24 Unknown Rx tabs Allergy/AdvReac Type Severity Reaction Status Date / Time No Known Allergies Allergy Verified 07/04/24 10:17 Family History Mother Cancer Liver Brother Diabetes Cancer Lung Sister Hypertension Cancer Skin Surgical History no surgical history Social History Smoking Status: Never smoker alcohol intake: never substance use type: does not use caffeine: Yes Type: coffee Number of servings: 2 ROS ROS ED Constitutional Constitutional ED: Denies chills or fever(s) Eyes Eyes: Denies change in vision or diplopia ENT ENT ED: Reports dizziness; Denies ear pain, rhinorrhea, sore throat or tinnitus Cardiovascular Cardiovascular: Reports chest pain and palpitations Respiratory/Chest Respiratory/Chest: Reports cough; Denies dyspnea or sputum Gastrointestinal Gastrointestinal: Reports nausea; Denies abdominal pain, diarrhea or vomiting Genitourinary Genitourinary ED: Denies dysuria or hematuria Musculoskeletal Musculoskeletal: Denies back pain or neck pain Integumentary Denies abscess or rash Neurologic Neurologic: Reports other Details: 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 no acute numbness ; Denies headache(s), paresthesias or weakness Psychiatric Psychiatric: Reports anxiety; Denies suicidal thoughts EXAM Physical Exam Const Vital Signs: 07/04/24 10:14 07/04/24 10:18 07/04/24 11:27 Temperature 97.6 F L Temperature Source Oral Pulse Rate 76 71 Respiratory Rate 15 Respiratory Effort Normal Non-Labored Respiratory Pattern Normal Blood Pressure 181/64 H 161/73 H Blood Pressure Mean 103 102 Pulse Ox 97 Oxygen Delivery Method Room Air 07/04/24 13:00 Temperature Temperature Source Pulse Rate 66 Respiratory Rate 19 H Respiratory Effort Respiratory Pattern Blood Pressure 164/74 H Blood Pressure Mean 104 Pulse Ox 97 Oxygen Delivery Method Room Air Positive well nourished and well developed General Appearance ED: well developed and NAD HEENT Reports TM's clear and moist mucous membranes normocephalic and atraumatic Tympanic Membrane ED: Yes TM's clear Eyes PERRL and EOMs intact bilaterally Neck full ROM and supple Resp normal respiratory effort and clear to auscultation bilaterally Cardio regular rate, regular rhythm and no murmurs GI non-tender and non-distended Auscultation: normoactive bowel sounds Palpation: soft Back/Spine no CVA tenderness General Back: other FROM Extremity normal to inspection General Extremety ED: Negative for edema, pulses abnormal or tenderness General Extremity: Negative for edema or pulses abnormal Neuro oriented x3, CN's II-XII intact bilaterally and no sensory deficits noted Neuro Narrative: Normal [id number] and [id number]-[id number] bilaterally. Normal speech. NIHSS 0. Positive Montgomery-Hallpike to the right reproducing her dizziness. When attempting to perform jolt test, the results are normal but the patient states her vision is extremely poor and she cannot see the object that I am having her focus on. Sensorium / Orientation: awake and alert Motor Exam: strength 5/5 throughout Psych mental status grossly normal Skin no rashes or lesions noted and no wounds MDM MDM MDM Narrative Medical decision making narrative: I think the patient is having peripheral vertigo. The elevated blood pressure, unclear if or how related. She states she is very anxious and it might be a result of that and reactive, not necessarily causative. Giving her dose of meclizine as long as she passes swallow eval, I do not think this is likely to be stroke given the intermittent nature of it and triggering with movement, much more likely to be peripheral but given the elevated blood pressure obtaining a CT of the head and some labs. She is sinus rhythm on the monitor which we will continue to watch. She has had no dysrhythmias or telemetry events. Her labs are normal. I obtained a CT of her head, I reviewed the images and the report which I agree with it is negative for any acute, just age-related changes. After the meclizine, she is feeling much better. She is able to walk to the bathroom and down the hallway without any difficulty or recurrent dizziness. I do think this is more likely to be vertiginous and less likely to be vascular/stroke. Unknown how the blood pressure is related. Will give her prescription for meclizine and have her follow-up with her doctor as an outpatient she is comfortable with that plan. Lab Data Attestation: I reviewed the patient's lab results. Labs: Laboratory Results - last 24 hr 07/04/24 07/04/24 11:25 12:10 WBC 8.5 RBC 4.04 L Hgb 12.2 Hct 37.2 MCV 92.1 MCH 30.2 MCHC 32.8 RDW Std Deviation 50.8 H RDW Coeff of Arturo 14.9 H Plt Count 336 MPV 9.3 Immature Gran % (Auto) 0.400 Neut % (Auto) 61.0 Lymph % (Auto) 27.4 Andrews % (Auto) 7.8 Eos % (Auto) 2.9 Baso % (Auto) 0.5 Absolute Neuts (auto) 5.2 Absolute Lymphs (auto) 2.33 Nucleated RBC % 0 Sodium Cancelled 138 Potassium Cancelled 4.0 Chloride Cancelled 106 Carbon Dioxide Cancelled 26.0 Anion Gap Cancelled 6 BUN Cancelled 17 Creatinine Cancelled 0.77 Estim Creat Clear Calc Cancelled 47.06 Est GFR (MDRD) Af Amer Cancelled 92 Est GFR (MDRD) Non-Af Cancelled 76 BUN/Creatinine Ratio Cancelled 22.2 H Glucose Cancelled 139 H Calcium Cancelled 9.3 Troponin I High Sens Cancelled 10 Radiography Diagnostic Testing: Clinical Impression(s) from Imaging Studies Brain CT 07/04/24 11:17 IMPRESSION: Chronic involutional changes of the brain. Electronically Signed: Juarez Pickering MD at 12:28 EDT , Rhythm Strip Rhythm Strip: Sinus Rhythm Rate: 85 Ectopy: None Discharge Plan Triage Chief Complaint: Hypertension ED Provider: Sonido Zhao Dx/Rx/DC Orders Clinical Impression: Episodic peripheral vertigo, Accelerated hypertension Instructions: Vertigo Inner Ear Problems, Hypertension Dc Prescriptions: New meclizine 25 mg tablet 25 mg PO Q8H PRN PRN (Reason: Dizziness) Qty: 15 0RF No Action turmeric 400 mg capsule 400 mg PO .COMPLEX Rx Instructions: 400 mg orally 2-3 x per week; Co [id number] E-Fish Oil 25-150-200 mg-mg-unit capsule 1 cap PO .COMPLEX Rx Instructions: 1 cap orally 2-3 x week; garlic 500 mg capsule 500 mg PO .2-3x week apple cider vinegar 600 mg capsule 600 mg PO .COMPLEX Rx Instructions: 600 mg orally 2-3x week; cholecalciferol (vitamin D3) 125 mcg (5,000 unit) tablet 125 mcg PO DAILY cyanocobalamin (vitamin B-12) 5,000 mcg tablet, IR and ER, biphasic 5,000 mcg PO DAILY glipizide 10 mg tablet 10 mg PO DAILY timolol 0.5 % drops 1 drp ophthalmic (eye) BID insulin glargine [Basaglar KwikPen U-100 Insulin] 100 unit/mL (3 mL) insulin pen 20 unit subcut QAM ascorbic acid (vitamin C) 1,000 mg tablet 1 g PO DAILY pantoprazole 40 mg tablet,delayed release (DR/EC) 40 mg PO DAILY Patient Comments: TAKE 40 MILLIGRAMS (1 TABLET,DELAYED RELEASE (DR/EC)) ORALLY DAILY amoxicillin-pot clavulanate 875-125 mg tablet 1 tab PO BID Qty: 1 0RF Patient Comments: TAKE 1 TABLET BY MOUTH TWICE A DAY Rx Instructions: Okay to stop antibiotic after doses on 02/26/2023 Eliquis 5 mg tablet 5 mg PO BID Qty: 180 3RF diltiazem HCl 120 mg capsule,extended release 24 hr 120 mg PO DAILY Qty: 90 3RF Primary Care Provider: Rylie Wilder Referrals: Rylie Wilder DO [Primary Care Provider] - 3-5 Days Print Language: Moldovan Disposition Disposition: Home, Self Care
[2024-07-04] MEDS: Meclizine HCl 25 MG Tablet PO (11:26)
[2024-07-04 11:27] VITALS: BP 161/73; PULSE 71
[2024-07-04 11:45] LABS: Absolute Lymphocyte Count 2.33 X10^3/uL (0.83-4.51); Absolute Neutrophil Count 5.2 X10^3/uL (2.0-7.7); Basophil# 0.04 X10^3/uL; Basophil% 0.5 % (0-1); Eosinophil# 0.25 X10^3/uL; Eosinophils% 2.9 % (0-5); Hematocrit 37.2 % (37-47); Hemoglobin 12.2 g/dL (12.0-15.0); Lymphocyte # 2.33 X10^3/ul (0.83-4.51); Lymphocyte % 27.4 % (19-41); Mean Corp Hgb Conc 32.8 g/dL (32-36); Mean Corpuscular Hgb 30.2 pg (27.0-32.0); Mean Corpuscular Volume 92.1 fL (81-99); Mean Platelet Vol. 9.3 fl (6.2-12.0); Monocyte# 0.66 X10^3/uL; Monocyte% 7.8 % (0-10); NRBC Flagged by Analyzer 0 % (0-5); Neutrophil # 5.18 X10^3/uL (2.7-7.7); Platelet Count 336 K/mm3 (150-450); RBC Distribution Width CV 14.9 % (11.6-14.6); RBC Distribution Width SD 50.8 fl (35.1-43.9); Red Blood Count 4.04 M/mm3 (4.2-5.4); White Blood Count 8.5 K/mm3 (4.4-11.0)
[2024-07-04 12:39] LABS: Anion Gap 6 (5-15); BUN 17 mg/dL (7-18); BUN/Creat Ratio 22.2 RATIO (10-20); Calcium,Total 9.3 mg/dL (8.5-10.1); Chloride 106 mmol/L (98-107); Creatinine, Serum 0.77 mg/dL (0.55-1.02); EST Glomerular Filtration Rate 76 mL/min (>60); Est Glom Filt Rate - Afr Amer 92 mL/min (>60); Estimated Creatinine Clearance 47.06 ml/min; Glucose 139 mg/dL (74-106); Sodium Level 138 mmol/L (136-145); Troponin-I HS 10 pg/mL (3.0-54.0)
[2024-07-04 13:00] VITALS: BP 164/74; PULSE 66; RESP 19; O2SAT 97
[2024-07-04 15:00] VITALS: BP 153/71; PULSE 67; RESP 20; TEMP 36.6; O2SAT 99
== END 2024-07-04 15:12 | disposition home or self-care (01) ==
PROVIDERS: Emergency Provider Emergency Medicine; PCP Family Medicine; Visit Provider Emergency Medicine
DX: H81.391 Other peripheral vertigo, right ear (principal); I48.0 Paroxysmal atrial fibrillation; E11.9 Type 2 diabetes mellitus without complications; I10 Essential (primary) hypertension; E78.2 Mixed hyperlipidemia; E03.9 Hypothyroidism, unspecified; Z79.01 Long term (current) use of anticoagulants; Z79.84 Long term (current) use of oral hypoglycemic drugs; Z79.899 Other long term (current) drug therapy
CPT/HCPCS: 70450; 80048; 84484; 85025; 99284; A4216

== ENCOUNTER → 2024-12-25 | Outpatient (CLI) | payer MEDICARE, SELFPAY ==
[2024-12-25 17:55] LABS: Absolute Neutrophil Count 2.6 X10^3/uL (2.0-7.7); Basophil# 0.04 X10^3/uL; Basophil% 0.7 % (0-1); Eosinophil# 0.28 X10^3/uL; Eosinophils% 4.7 % (0-5); Hematocrit 36.6 % (37-47); Hemoglobin 12.3 g/dL (12.0-15.0); Lymphocyte % 41.5 % (19-41); Mean Corp Hgb Conc 33.6 g/dL (32-36); Mean Corpuscular Hgb 31.1 pg (27.0-32.0); Mean Corpuscular Volume 92.4 fL (81-99); Mean Platelet Vol. 9.2 fl (6.2-12.0); Monocyte# 0.58 X10^3/uL; Monocyte% 9.6 % (0-10); NRBC Flagged by Analyzer 0 % (0-5); Neutrophil # 2.61 X10^3/uL (2.7-7.7); Neutrophil % 43.3 % (47-70); Platelet Count 348 K/mm3 (150-450); RBC Distribution Width CV 14.6 % (11.6-14.6); RBC Distribution Width SD 49.4 fl (35.1-43.9); Red Blood Count 3.96 M/mm3 (4.2-5.4)
[2024-12-25 19:34] LABS: ALB/GLOB Ratio 1.5 RATIO (0.9-2.4); AST(SGOT) 22 U/L (<=31); Alanine Aminotransfer ALT/SGPT 16 U/L (<=34); Alkaline Phosphatase 64 U/L (35-104); Anion Gap 17 (5-15); BUN 11 mg/dL (4-19); BUN/Creat Ratio 14.8 RATIO (10-20); Calcium,Total 9.1 mg/dL (7.6-11.0); Carbon Dioxide 18.1 mmol/L (21.0-32.0); Chloride 101 mmol/L (98-108); Creatinine, Serum 0.73 mg/dL (0.70-1.20); EST Glomerular Filtration Rate 80 (>60); Globulin 2.7 g/dL (2.2-4.2); Glucose 86 mg/dL (70-99); Iron 77 ug/dL (50-170); Potassium 4.2 mmol/L (3.3-5.1); Protein, Total 6.7 g/dL (5.9-8.4); Sodium Level 136 mmol/L (133-145); Total Bilirubin 0.24 mg/dL (0.00-1.30)
[2024-12-25 20:06] LABS: Ferritin 81 ng/mL (22-378); Free T3 2.6 pg/mL (2.18-3.98); Vitamin B12 > 4000 pg/mL (180-914)
== END | disposition home or self-care (01) ==
LOC: BFHLAB 15:53
PROVIDERS: PCP Family Medicine; Referring Provider Family Medicine; Visit Provider Family Medicine
DX: E11.9 Type 2 diabetes mellitus without complications (principal); R53.83 Other fatigue; Z51.81 Encounter for therapeutic drug level monitoring; E03.9 Hypothyroidism, unspecified; E53.8 Deficiency of other specified B group vitamins
CPT/HCPCS: 36415; 80053; 82607; 82728; 83540; 84439; 84443; 84481; 85025; 86617

== ENCOUNTER 2025-09-10 14:07 | Emergency (ER) | payer MEDICARE, SELFPAY ==
[2025-09-10 14:08] VITALS: BP 160/65; PULSE 79; RESP 16; TEMP 36.2; O2SAT 94; BMI 35.2
--- NOTE | 2025-09-10 14:45 | RAD_ITS ---
PROCEDURE: FOOT MIN 3 VIEWS; TIBIA FIBULA 2 VIEWS; ANKLE MIN 3 VIEWS 09/10/2025 REASON FOR EXAM: FALL, PAIN, SWELLING; FALL, LEG PAIN; FALL, SWELLING, PAIN TECHNIQUE: Procedure Code: RADFO; RADTF; RADANK Modality: DX Procedure: FOOT MIN 3 VIEWS; TIBIA FIBULA 2 VIEWS; ANKLE MIN 3 VIEWS Laterality: Left COMPARISON: None FINDINGS: Bones: Bone mineralization is diminished. There is no acute fracture or dislocation of the tibia or fibula. Spurring is identified in the calcaneus with fragmentation at the insertion of the Achilles present. No destructive bone lesion seen. Joints: Degenerative changes of the 1st MTP joint with bunion deformity of the head of the 1st metatarsal. No dislocation. Degenerative changes present in the medial and patellofemoral compartments of the knee. Soft tissues: Diffuse soft tissue swelling throughout the foot and ankle. Other: No radiopaque foreign body RAD/Tibia & Fibula 2 Views IMPRESSION: Diffuse decreased mineralization throughout the lower extremity. Calcaneal spurs and Achilles enthesopathy. Degenerative changes of the 1st MTP joint. No acute fracture dislocation of the left foot ankle or tibia or fibula. Reading Location: [id number]
--- NOTE | 2025-09-10 14:45 | RAD_ITS ---
PROCEDURE: FOOT MIN 3 VIEWS; TIBIA FIBULA 2 VIEWS; ANKLE MIN 3 VIEWS 09/10/2025 REASON FOR EXAM: FALL, PAIN, SWELLING; FALL, LEG PAIN; FALL, SWELLING, PAIN TECHNIQUE: Procedure Code: RADFO; RADTF; RADANK Modality: DX Procedure: FOOT MIN 3 VIEWS; TIBIA FIBULA 2 VIEWS; ANKLE MIN 3 VIEWS Laterality: Left COMPARISON: None FINDINGS: Bones: Bone mineralization is diminished. There is no acute fracture or dislocation of the tibia or fibula. Spurring is identified in the calcaneus with fragmentation at the insertion of the Achilles present. No destructive bone lesion seen. Joints: Degenerative changes of the 1st MTP joint with bunion deformity of the head of the 1st metatarsal. No dislocation. Degenerative changes present in the medial and patellofemoral compartments of the knee. Soft tissues: Diffuse soft tissue swelling throughout the foot and ankle. Other: No radiopaque foreign body RAD/Ankle min 3 Views IMPRESSION: Diffuse decreased mineralization throughout the lower extremity. Calcaneal spurs and Achilles enthesopathy. Degenerative changes of the 1st MTP joint. No acute fracture dislocation of the left foot ankle or tibia or fibula. Reading Location: [id number]
--- NOTE | 2025-09-10 14:45 | VDLE_ITS ---
Reason For Study Reason For Study: Zeina RIGHT LEFT CFV is compressible, spontaneous, phasic, competent GSV is normal. and demonstrates normal augmentation. CFV is compressible, spontaneous, phasic, competent, Procedure and demonstrates normal augmentation. This is a venous duplex using B-mode, color flow and FV is compressible, spontaneous, phasic, competent spectral Doppler. and demonstrates normal augmentation. Exam performed portable in ED. POP V is compressible, spontaneous, phasic, competent A preliminary report was called and/or faxed to Carolyne and demonstrates normal augmentation. MD Ida. T/P Trunk is compressible. PTV is compressible. LT PerV is compressible. VL/Venous Duplex US, Unilateral Interpretation Summary Deep veins of the left lower extremity are patent and compressible segmentally. There is no evidence of left lower extremity deep vein thrombosis. The left great saphenous vein appears patent an d compressible segmentally. Ordering Physician: Carolyne Prieto Referring Physician: Rylie Wilder Performed By: Kita Perez RVT
--- NOTE | 2025-09-10 14:45 | RAD_ITS ---
PROCEDURE: FOOT MIN 3 VIEWS; TIBIA FIBULA 2 VIEWS; ANKLE MIN 3 VIEWS 09/10/2025 REASON FOR EXAM: FALL, PAIN, SWELLING; FALL, LEG PAIN; FALL, SWELLING, PAIN TECHNIQUE: Procedure Code: RADFO; RADTF; RADANK Modality: DX Procedure: FOOT MIN 3 VIEWS; TIBIA FIBULA 2 VIEWS; ANKLE MIN 3 VIEWS Laterality: Left COMPARISON: None FINDINGS: Bones: Bone mineralization is diminished. There is no acute fracture or dislocation of the tibia or fibula. Spurring is identified in the calcaneus with fragmentation at the insertion of the Achilles present. No destructive bone lesion seen. Joints: Degenerative changes of the 1st MTP joint with bunion deformity of the head of the 1st metatarsal. No dislocation. Degenerative changes present in the medial and patellofemoral compartments of the knee. Soft tissues: Diffuse soft tissue swelling throughout the foot and ankle. Other: No radiopaque foreign body RAD/Foot min 3 Views IMPRESSION: Diffuse decreased mineralization throughout the lower extremity. Calcaneal spurs and Achilles enthesopathy. Degenerative changes of the 1st MTP joint. No acute fracture dislocation of the left foot ankle or tibia or fibula. Reading Location: [id number]
--- NOTE | 2025-09-10 14:47 | ED.VIS.LOWEX ---
HPI History of Present Illness Chief Complaint: Lower Extremity Injury Narrative Narrative: Patient is a 84-year-old female presenting to the emergency department after a fall on Sunday. Patient has a past medical history of hypertension, hyperlipidemia, type 2 diabetes, hypothyroidism, mitral regurgitation, tricuspid valve insufficiency and post lyme disease syndrome. Patient is on Eliquis for paroxysmal a fib. Patient states that Sunday evening she was out wearing slippers when she walked to the bathroom and she slipped and fell. She does not think she hit her head. Denies any neck or back pain. States she immediately had left ankle pain. She been wrapping it and taking Tylenol and Advil for pain control. She denies any pain in her hips, upper extremities or right lower extremity. [facility] Medical History Paroxysmal atrial fibrillation Non-rheumatic mitral regurgitation Non-rheumatic tricuspid valve insufficiency Syncope and collapse Post-Lyme disease syndrome Atrial fibrillation Mixed hyperlipidemia Essential hypertension Hypothyroidism Type 2 diabetes mellitus Home Medications ?Medication ?Instructions ?Recorded ?Last Taken ?Type glipizide 10 mg tablet 10 mg PO DAILY diabetes 07/18/22 02/22/23 History timolol 0.5 % eye drops 1 drp ophthalmic (eye) BID glaucoma 07/18/22 02/22/23 History apple cider vinegar 600 mg capsule 600 mg PO .COMPLEX supplement 07/27/22 Unknown History garlic 500 mg capsule 500 mg PO .2-3x week supplement 07/27/22 Unknown History insulin glargine 100 unit/mL (3 20 unit subcut QAM diabetes 07/27/22 02/22/23 History mL) subcutaneous pen (Basaglar KwikPen U-100 Insulin) turmeric 400 mg capsule 400 mg PO .COMPLEX supplement 07/27/22 02/22/23 History ubidecarenone-omega 3-vit E 25 1 cap PO .COMPLEX supplement 07/27/22 Unknown History mg-150 (90-60) mg-200 unit capsule (Co [id number] E-Fish Oil) ascorbic acid (vitamin C) 1,000 mg 1 g PO DAILY supplement 10/26/22 02/22/23 History tablet cholecalciferol (vitamin D3) 125 125 mcg PO DAILY supplement 10/26/22 02/22/23 History mcg (5,000 unit) tablet cyanocobalamin (vitamin B-12) 5,000 mcg PO DAILY supplement 10/26/22 02/22/23 History 5,000 mcg tablet, immediate and extend release apixaban 5 mg tablet (Eliquis) 5 mg PO BID #180 tabs 12/25/22 02/22/23 Rx pantoprazole 40 mg tablet,delayed 40 mg PO DAILY GERD 02/22/23 02/22/23 History release amoxicillin 875 mg-potassium 1 tab PO BID antibiotic #1 TAB 02/24/23 02/22/23 Rx clavulanate 125 mg tablet diltiazem HCl 120 mg capsule,24 120 mg PO DAILY #90 caps 07/23/23 Unknown Rx hr,extended release meclizine 25 mg tablet 25 mg PO Q8H PRN PRN Dizziness #15 07/04/24 Unknown Rx tabs Allergy/AdvReac Type Severity Reaction Status Date / Time No Known Allergies Allergy Verified 09/10/25 14:08 Family History Mother Cancer Liver Brother Diabetes Cancer Lung Sister Hypertension Cancer Skin Social History Smoking Status: Never smoker alcohol intake: never substance use type: does not use caffeine: Yes Type: coffee Number of servings: 2 ROS ROS ED ROS Narrative see HPI EXAM Physical Exam Narrative Exam Narrative: Vital signs: Reviewed General: Alert and orientedx3. No acute distress. Nontoxic appearing. HEENT: Head is normocephalic and atraumatic. No signs of trauma to the head or face. No lacerations, abrasions or cephalohematoma. Sinuses nontender, pupils equal round and reactive. Nares are patent. Oropharynx and throat exams normal. No oropharyngeal trauma. Neck: Supple without lymphadenopathy nontender. No midline cervical spinal tenderness to palpation. No step-offs or deformities. Cardiovascular: Regular rate and rhythm, no murmurs. No rubs or gallops. Normal S1 and S2 Respiratory: Clear to auscultation bilaterally. No wheezes, rales, rhonchi Chest: Chest wall is atraumatic and nontender to palpation. There is no crepitus, erythema or ecchymosis. Abdominal: Soft and nontender. Normal bowel sounds. No guarding or rebound. Nonsurgical abdomen Extremities: There is swelling to the left ankle and foot. There is tenderness to palpation of the lateral malleolus. No tenderness palpation of the medial malleolus or the midfoot. There is no significant ecchymosis to the foot but rather to the lateral malleolus where she is most tender. There is also some mild tenderness to palpation of the left calf and some very mild swelling. There is no tenderness to palpation of the tib-fib or knee. There is no erythema or palpable cords to the calf. DP pulse 2+ bilaterally. RLE and bilateral upper extremities are atraumatic and nontender to palpation with normal active range of motion. Hips are stable and nontender to palpation. No midline thoracic or lumbar spinal tenderness to palpation. No step-offs or deformities. Skin: No rash or redness. Neurological: Cranial nerves II through XII are grossly intact. Normal strength and sensation. Normal cerebellar function The rest of the physical exam is unremarkable Const Vital Signs: 09/10/25 14:08 Temperature 97.2 F L Temperature Source Temporal Pulse Rate 79 Respiratory Rate 16 Blood Pressure 160/65 H Blood Pressure Mean 96 Pulse Ox 94 Oxygen Delivery Method Room Air MDM MDM MDM Narrative Medical decision making narrative: Patient is a 84-year-old female presenting to the emergency department for left ankle pain after a fall on Sunday. Patient was seen and examined. Vitals are stable. Patient resting in bed comfortably in no acute distress. Patient was offered analgesia but declines. X-ray of the left foot, ankle and tib-fib were obtained. DVT ultrasound was also obtained given the patient has not been as ambulatory since the fall and is having calf pain. CT of the brain and cervical spine will also be obtained given the patient's age and possible head trauma on Eliquis. X-rays were reviewed by myself and there is no evidence of fracture or dislocation on my review. Radiology read with no acute fracture or dislocation. Degenerative changes. CT of the brain reviewed by myself, no bleeds or mass effect is noted. Radiology read in agreement. CT cervical spine with no acute fracture. DVT US negative. Patient and family member at bedside were updated on the negative findings. Placed in an Jorge wrap and air splint for comfort. Ambulated without difficulty. Instructed to follow up with PCP for repeat xray in 1 week if she continues to have pain and swelling. Patient discharged from the Emergency Department. I do not feel that the patient's evaluation reveals any acute reason for admission at this time. I instructed them to either follow-up with their primary care physician or promptly return to the Emergency Department for reevaluation should symptoms worsen or new symptoms develop. I explained what symptoms would indicate the need to return to the emergency department. Shared decision making was used. The patient voiced understanding of the treatment plan and is agreeable with it. Clinical impression: Mechanical fall Ankle sprain History & Record Review Discussion w/independent historian: Patient Radiography X-Ray: Read by ED Physician and No Fracture Diagnostic Testing: Clinical Impression(s) from Imaging Studies Ankle X-Ray 09/10/25 14:45 IMPRESSION: Diffuse decreased mineralization throughout the lower extremity. Calcaneal spurs and Achilles enthesopathy. Degenerative changes of the 1st MTP joint. No acute fracture dislocation of the left foot ankle or tibia or fibula. Reading Location: [facility] Foot X-Ray 09/10/25 14:45 IMPRESSION: Diffuse decreased mineralization throughout the lower extremity. Calcaneal spurs and Achilles enthesopathy. Degenerative changes of the 1st MTP joint. No acute fracture dislocation of the left foot ankle or tibia or fibula. Reading Location: [facility] Tibia/Fibula X-Ray 09/10/25 14:45 IMPRESSION: Diffuse decreased mineralization throughout the lower extremity. Calcaneal spurs and Achilles enthesopathy. Degenerative changes of the 1st MTP joint. No acute fracture dislocation of the left foot ankle or tibia or fibula. Reading Location: [facility] Cervical Spine CT 09/10/25 14:54 IMPRESSION: 1. No acute fracture. 2. Degenerative changes cervical spine as described. Reading Location: [id number] Brain CT 09/10/25 15:54 IMPRESSION: 1. No intracranial hemorrhage. No mass effect or midline shift. 2. Mild involutional and ischemic gliotic white matter changes. CT is insensitive for early evaluation of acute stroke. If there is clinical concern for acute ischemia, an MRI may be considered. Reading Location: [facility] Discharge Plan Triage Chief Complaint: Lower Extremity Injury ED Provider: Carolyne Prieto Dx/Rx/DC Orders Clinical Impression: Fall, Ankle sprain Instructions: ED Ankle Sprain (Adult), ED Fall Prevention, ED RICE Prescriptions: No Action turmeric 400 mg capsule 400 mg PO .COMPLEX Rx Instructions: 400 mg orally 2-3 x per week; Co [id number] E-Fish Oil 25-150-200 mg-mg-unit capsule 1 cap PO .COMPLEX Rx Instructions: 1 cap orally 2-3 x week; garlic 500 mg capsule 500 mg PO .2-3x week apple cider vinegar 600 mg capsule 600 mg PO .COMPLEX Rx Instructions: 600 mg orally 2-3x week; cholecalciferol (vitamin D3) 125 mcg (5,000 unit) tablet 125 mcg PO DAILY cyanocobalamin (vitamin B-12) 5,000 mcg tablet, IR and ER, biphasic 5,000 mcg PO DAILY glipizide 10 mg tablet 10 mg PO DAILY timolol 0.5 % drops 1 drp ophthalmic (eye) BID insulin glargine [Basaglar KwikPen U-100 Insulin] 100 unit/mL (3 mL) insulin pen 20 unit subcut QAM ascorbic acid (vitamin C) 1,000 mg tablet 1 g PO DAILY pantoprazole 40 mg tablet,delayed release (DR/EC) 40 mg PO DAILY Patient Comments: TAKE 40 MILLIGRAMS (1 TABLET,DELAYED RELEASE (DR/EC)) ORALLY DAILY amoxicillin-pot clavulanate 875-125 mg tablet 1 tab PO BID Qty: 1 0RF Patient Comments: TAKE 1 TABLET BY MOUTH TWICE A DAY Rx Instructions: Okay to stop antibiotic after doses on 02/26/2023 meclizine 25 mg tablet 25 mg PO Q8H PRN PRN (Reason: Dizziness) Qty: 15 0RF Eliquis 5 mg tablet 5 mg PO BID Qty: 180 3RF diltiazem HCl 120 mg capsule,extended release 24 hr 120 mg PO DAILY Qty: 90 3RF Primary Care Provider: Rylie Wilder Referrals: Rylie Wilder DO [Primary Care Provider, Family Practice] - As soon as possible Activity Restrictions/Additional Instructions: Refer to the RICE instructions for pain and swelling control. Apply the Jorge wrap and brace daily to help with pain and stabilization of your ankle. Follow-up with your primary care doctor in 1 week for repeat x-rays if you are still having pain. Your evaluation in the Emergency Department did not reveal any acute reason for admission. However, I want to emphasize that you may be early in the course of a disease process or illness even if it is not present. For this reason you should follow-up within 24 hours for reevaluation with either your primary care physician or if necessary back here in the Emergency Department. You should return to the Emergency Department immediately if your symptoms worsen or new symptoms develop. Print Language: Panamanian Disposition Disposition: Home, Self Care
--- NOTE | 2025-09-10 14:54 | CT_ITS ---
EXAM: CT Cervical Spine Without Intravenous Contrast CLINICAL INDICATION: FALL TECHNIQUE: Axial computed tomography images of the cervical spine without intravenous contrast. This CT exam was performed using one or more of the following dose reduction techniques: automated exposure control, adjustment of the mA and/or kV according to patient size, and/or use of iterative reconstruction technique. RADIATION DOSE: CTDIvol = 17 mGy, DLP = 1121 mGy-cm COMPARISON: No relevant prior studies available. FINDINGS: VERTEBRAE: Mild reversal cervical spine lordosis. Degenerative facet arthropathy throughout the cervical spine. No acute fracture. DISCS/SPINAL CANAL/NEURAL FORAMINA: Degenerative disc disease lower cervical spine. SOFT TISSUES: Unremarkable. CT/Spine Cervical without Contras IMPRESSION: 1. No acute fracture. 2. Degenerative changes cervical spine as described. Reading Location: [id number]
--- NOTE | 2025-09-10 15:54 | CT_ITS ---
PROCEDURE: BRAIN/HEAD WITHOUT CONTRAST 09/10/2025 REASON FOR EXAM: FALL TECHNIQUE: Procedure Code: CTBR Modality: CT Procedure: BRAIN/HEAD WITHOUT CONTRAST Coronal and Sagittal reconstruction series were provided. One or more dose reduction techniques were used (e.g., Automated exposure control, adjustment of the mA and/or kV according to patient size, use of iterative reconstruction technique. COMPARISON: None available. FINDINGS: There is no extra-axial or intra-axial intracranial hemorrhage. No mass effect or midline shift is seen. Generalized intracranial volume loss and findings compatible with chronic microvascular white matter ischemia. There is normal amaral-white matter differentiation. The posterior fossa is grossly unremarkable. The skull is unremarkable. Visualized paranasal sinuses are clear. The mastoid air cells show normal translucency. CT/Brain/Head without Contrast IMPRESSION: 1. No intracranial hemorrhage. No mass effect or midline shift. 2. Mild involutional and ischemic gliotic white matter changes. CT is insensitive for early evaluation of acute stroke. If there is clinical co ncern for acute ischemia, an MRI may be considered. Reading [facility]
[2025-09-10 16:27] VITALS: BP 158/76; PULSE 87; RESP 18; TEMP 36.7; O2SAT 98
--- OUTSIDE RECORDS SUMMARY | 2025-09-10 17:48 | XMS RPT_ITS | CCD ---
[facility] Organization [facility] Team Providers Care Log Handler Name Role Phone RAQUEL AGUIAR Admitting Unavailable RAQUEL AGUIAR Attending Unavailable RAQUEL AGUIAR Primary Care Unavailable SEDRICK JOSE MD Consulting Unavailable SEDRICK JOSE MD Referring Unavailable PROVIDER, UNKNOWN Consulting Unavailable PROVIDER, UNKNOWN Consulting Unavailable PROVIDER, UNKNOWN Consulting Unavailable Dr. Rylie Wilder Primary Care Provider Mary Owens Attending Provider Unavailable Dr. Rylie Wilder Referring Provider Dr. Bro Simms Attending Provider Dr. Rylie Wilder Primary Care Provider Dr. Rylie Wilder Referring Provider Dr. Bro Simms Attending Provider Dr. Rylie Wilder Primary Care Provider Dr. Bro Coppola Emergency Provider Dr. Frederick Devries Admit Provider [phone] Frederick Devries Other Provider [phone] Jo Abarca Attending Provider [phone] Dr. Jo Abarca Other Provider Dr. Rylie Wilder DO Primary Care Provider Dr. Rylie Wilder DO Attending Provider [phone] Dr. Rylie Wilder DO Referring Provider [phone] Rylie Wilder Primary Care Unavailable Malys, Rylie Attending Unavailable Malys, Rylie Referring Unavailable Malys, Rylie Primary Care Unavailable Malys, Rylie Attending Unavailable Malys, Rylie Referring Unavailable Malys, Rylie Primary Care Unavailable Sonido Zhao Attending Unavailable CLAUDIO DEXTER DR~[id number] DAVID MARTINEZ Attending Unavailable CLAUDIO DEXTER DR~[id number] DAVID MARTINEZ Admitting Unavailable RYLIE WILDER Opal Consulting Unavailable RYLIE WILDER A Primary Care Unavailable RYLIE WILDER Opal Consulting Unavailable CLAUDIO DEXTER, DR DAVID MARTINEZ Consulting Johny SNYDER MD, DR DAVID MARTINEZ Consulting Johny elena Medications Current Medications Medication Drug Class(es) Dates Sig (Normalized) Sig (Original) amoxicillin 875 mg / clavulanate 125 mg oral tablet (8 sources) Penicillin-class Antibacterial Start: 02-22-2023 End: 02-24-2023 take 1 tablet by mouth twice daily Amoxicillin-Pot Clavulanate 875-125 mg tablet Active 1 {tbl} PO TWICE A DAY February 24, 2023 12:01pm Okay to stop antibiotic after doses on 02/26/2023 Start: 02-22-2023 End: 02-24-2023 take 1 tablet by mouth twice daily Amoxicillin-Pot Clavulanate Active 1 TABLET PO TWICE A DAY February 24, 2023 12:01pm Okay to stop antibiotic after doses on 02/26/2023 apixaban 5 mg oral tablet (10 sources) Factor Xa Inhibitor Start: 07-18-2022 End: 12-25-2022 take 1 tablet by mouth twice daily Apixaban (Eliquis) 5 mg tablet Active 5 mg PO TWICE A DAY 180 December 25, 2022 4:44pm apple cider vinegar 600 mg oral capsule (6 sources) Start: 07-27-2022 take 1 capsule by mouth every week Apple Cider Vinegar 600 mg capsule Active 600 mg PO .COMPLEX July 27, 2022 12:00am 600 mg orally 2-3x week; ascorbic acid 1000 mg oral tablet (5 sources) Vitamin C Start: 10-26-2022 take 1 g by mouth once daily Ascorbic Acid (Vitamin C) 1,000 mg tablet Active 1 g PO DAILY October 26, 2022 1:00am Start: 10-26-2022 take 1 g by mouth once daily A scorbic Acid (Vitamin C) Active 1 GM PO DAILY October 26, 2022 1:00am cholecalciferol 0.125 mg oral tablet (11 sources) Vitamin D Start: 10-26-2022 take 1 tablet by mouth once daily Cholecalciferol (Vitamin D3) 125 mcg (5,000 unit) tablet Active 125 ug PO DAILY October 26, 2022 3:52pm Start: 07-27-2022 End: 10-26-2022 take 2-3 tablets by mouth every week Cholecalciferol (Vitamin D3) 125 mcg (5,000 unit) tablet Discontinued 125 ug PO .COMPLEX July 27, 2022 12:00am October 26, 2022 3:53pm 125 mcg orally 2-3 x week; Garlic (6 sources) Non-Standardized Food Allergenic Extract Start: 07-27-2022 take 0.2 capsule by mouth every week Garlic 500 mg capsule Active 500 mg PO .2-3x week July 27, 2022 12:00am Start: 07-27-2022 Garlic Active 500 MG PO .2-3x week July 27, 2022 12:00am glipiZIDE 10 mg oral tablet (6 sources) Sulfonylurea Start: 07-18-2022 take 1 tablet by mouth once daily Glipizide 10 mg tablet Active 10 mg PO DAILY July 18, 2022 12:00am 3 ml insulin glargine 100 unt/ml pen injector (12 sources) Insulin Analog Start: 07-27-2022 Insulin Glargi ne (Basaglar Attilaikpen U-100 Insulin) 100 unit/mL (3 mL) insulin pen Active 20 U SC EVERY MORNING July 27, 2022 1:43pm Start: 07-18-2022 End: 07-27-2022 Insulin Glargine (Basaglar K izaiahkpen U-100 Insulin) 100 unit/mL (3 mL) insulin pen Discontinued 15 U SC EVERY MORNING July 18, 2022 12:00am July 27, 2022 1:48pm meclizine hydrochloride 25 mg oral tablet (1 source) Antiemetic Start: 07-04-2024 take 1 tablet by mouth every eight hours as needed for dizziness Meclizine 25 mg tablet Active 25 mg PO EVERY 8 HOURS NEEDED as needed for Dizziness July 04, 2024 2:49pm osmotic 24 hr metFORMIN hydrochloride 500 mg extended release oral tablet (2 sources) Biguanide Start: 07-18-2022 take 500 mg by mouth once daily Metformin Active 500 MG PO DAILY July 18, 2022 12:00am pantoprazole 40 mg delayed release oral tablet (4 sources) Proton Pump Inhibitor Start: 02-22-2023 take 1 tablet by mouth once daily Pantoprazole 40 mg tablet,delayed release (DR/EC) Active 40 mg PO DAILY February 22, 2023 12:00am prednisoLONE acetate 10 mg/ml ophthalmic suspension (2 sources) Corticosteroid Start: 07-27-2022 Prednisolone Acetate Active 1 DRP OPHTHALMIC TWICE A DAY July 27, 2022 12:00am Timolol (6 sources) beta-Adrenergic Roger Start: 07-18-2022 take 0.5 drop(s) into the eye(s) twice daily Timolol 0.5 % drops Active 1 NMA OPHTHALMIC TWICE A DAY July 18, 2022 12:00am Start: 07-18-2022 Timolol Active 1 DRP OPHTHALMIC TWICE A DAY July 18, 2022 12:00am Start: 07-18-2022 Timolol Active 1 DRP OPHTHALMIC DAILY July 18, 2022 12:00am travoprost 0.04 mg/ml ophthalmic solution (2 sources) Prostaglandin Analog Start: 07-18-2022 take 0.004 drop(s) into the eye(s) once daily in the evening Travoprost (Travatan Z) 0.004 % drops Active 1 DRP OPHTHALMIC EVERY EVENING July 18, 2022 12:00am Turmeric extract (6 sources) Start: 07-27-2022 take 2-3 capsules by mouth every week Turmeric 400 mg capsule Active 400 mg PO .COMPLEX July 27, 2022 12:00am 400 mg orally 2-3 x per week; Start: 07-27-2022 Turmeric Activ e 400 MG PO .COMPLEX July 27, 2022 12:00am 400 mg orally 2-3 x per week; Ubidecarenone-Mercer 3-Vit E (Co T-20-Tulprmo E-Fish Oil) 25-150-200 mg-mg-unit capsule (6 sources) Start: 07-27-2022 Ubidecarenone- Mercer 3-Vit E (Co W-00-Nunlkcm E-Fish Oil) 25-150-200 mg-mg-unit capsule Active 1 NMA PO .COMPLEX July 27, 2022 12:00am 1 cap orally 2-3 x week; Start: 07-27-2022 Ubidecarenone- Mercer 3-Vit E (Co L-58-Xfeerxx E-Fish Oil) 25-150-200 mg-mg-unit capsule Active 1 CAP PO .COMPLEX July 27, 2022 12:00am 1 cap orally 2-3 x week; vitamin b12 5 mg extended release oral tablet (11 sources) Vitamin B12 Start: 10-26-2022 take 1 tablet by mouth once daily Cyanocobalamin (Vitamin B-12) 5,000 mcg tablet, IR and ER, biphasic Active 5000 ug PO DAILY October 26, 2022 3:52pm Start: 07-27-2022 End: 10-26-2022 take 2-3 tablets by mouth every week Cyanocobalamin (Vitamin B-12) 5,000 mcg tablet, IR and ER, biphasic Discontinued 5000 ug PO .COMPLEX July 27, 2022 12:00am October 26, 2022 3:53pm 5,000 mcg orally 2-3 x per week; Completed/Discontinued Medications Medication Drug Class(es) Dates Sig (Normalized) Sig (Original) 24 hr dilTIAZem hydrochloride 120 mg extended release oral capsule (15 sources) Calcium Channel Roger Start: 07-18-2022 End: 07-23-2023 take 1 capsule by mouth once daily Diltiazem Hcl 120 mg capsule,extended release 24 hr Discontinued 120 mg PO DAILY 90 July 27, 2022 2:37pm July 23, 2023 12:29pm Problems Problem Classification Problem Date Documented Da te Episodic/Chronic Cardiac dysrhythmias (15 sources) Unspecified atrial fibrillation; Translations: [Atrial fibrillation] Onset: 06-23-2020 Chronic Conditions associated with dizziness or vertigo (1 source) Peripheral vertigo; Translations: [Other peripheral vertigo, unspecified ear] 07-12-2024 Episodic Diabetes mellitus without complication (8 sources) Type 2 diabetes mellitus without complications; Translations: [Type 2 diabetes mellitus] Onset: 06-23-2020 07-18-2022 Chronic Disorders of lipid metabolism (8 sources) Mixed hyperlipidemia; Translations: [Mixed hyperlipidemia] Chronic Essential hypertension (10 sources) Essential hypertension; Translations: [Essential (primary) hypertension] Onset: 07-29-2024 Chronic External cause codes: Natural/environment (1 source) Scratched by cat, initial encounter; Translations: [Scratched by cat, initial encounter] Onset: 06-23-2020 External cause codes: Unspecified (1 source) Activity, other specified; Translations: [Activity, other specified] Onset: 06-23-2020 Fluid and electrolyte disorders (5 sources) Acute hyponatremia; Translations: [Hypo-osmolality and hyponatremia] 03-04-2023 Episodic Genitourinary symptoms and ill-defined conditions (1 source) Hematuria, unspecified; Translations: [HEMATURIA UNSPECIFIED] Onset: 07-01-2025 Episodic Heart valve disorders (16 sources) Tricuspid incompetence, non-rheumatic ; 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] Chronic Malaise and fatigue (5 sources) Asthenia; Translations: [Weakness] 03-04-2023 Episodic Neoplasms of unspecified nature or uncertain behavior (5 sources) Thrombocytosis; Translations: [Thrombocythemia] 02-23-2023 Episodic Other infections; including parasitic (6 sources) Sequelae of infectious disease; Translations: [Sequelae of other specified infectious and parasitic diseases] 07-18-2022 Chronic Other infections; including parasitic (1 source) Lyme disease, unspecified; Translations: [Lyme disease, unspecified] Onset: 06-23-2020 Episodic Other liver diseases (5 sources) Enzyme level - finding; Translations: [Elevated transaminase measurement] 03-04-2023 Episodic Superficial injury; contusion (3 sources) Abrasion of right thumb, initial encounter; Translations: [Abrasion of right thumb, initial encounter] Onset: 06-23-2020 Episodic Syncope (8 sources) Syncope and collapse; Translations: [Syncope and collapse] Episodic Thyroid disorders (6 sources) Hypothyroidism; Translations: [Hypothyroidism, unspecified] 07-18-2022 Chronic Urinary tract infections (3 sources) Urinary tract infection, site not specified; Translations: [UTI SITE NOT SPECIFIED] Onset: 06-29-2025 Episodic Viral infection (5 sources) Disease caused by 2019-nCoV; Translations: [COVID-19] 02-22-2023 Episodic Results Test Name Value Interpretation Reference Range Facility CULTURE URINEon 07-01-2025 CULTURE URINE NO PATHOGENS GROWN AFTER 2 DAYS Normal [facility] Comment on above: Performed By: #### U NIYA #### [facility] [address], [place] [address] Manager Of Recruiting - Eileen Telles ALINE [id number] Lyme Antibodies,W [place] P93 Ab Normal [facility] Comment on above: Result Comment: TEST RESULTS LIMITS Lyme, Line Blot, Serum Lyme Ab IgG by Line Blot: Lyme IgG Line Blot Interp. Positive Abnormal Negative IgG P93 Ab. Present IgG P66 Ab. Absent IgG P58 Ab. Present IgG P45 Ab. Absent IgG P41 Ab. Present IgG P39 Ab. Present IgG P30 Ab. Absent IgG P28 Ab. Absent IgG P23 Ab. Present IgG P18 Ab. Present Lyme Ab IgM by Line Blot: Lyme IgM Line Blot Interp. Negative Negative Please Note: Lyme immunoblot alone is not recommended for the diagnosis of Lyme disease. Current guidelines recommend the use of a two-tiered approach to Lyme serology testing to improve the sensitivity and specificity of testing. [facility] offers test code 592533 Lyme Disease Serology with Reflex to aid in the diagnosis of Lyme Disease. IgM P41 Ab. Absent IgM P39 Ab. Absent IgM P23 Ab. Present Additional Information: Per CDC criteria, the Lyme IgG Immunoblot is interpreted as positive if IgG-class antibodies are detected to 5 or more B. burgdorferi proteins, and the Lyme IgM Immunoblot is interpreted as positive if IgM-class antibodies are detected to 2 or more B. burgdorferi proteins. Immunoblot patterns not meeting these criteria should not be interpreted as positive. Epitopes from certain B. burgdorferi proteins (e.g., p41) are conserved across other bacteria, which may lead to the detection of IgM-and/or IgG class antibodies on the Lyme disease immunoblots in patients without Lyme disease. Immunoblot should only be ordered on specimens that are positive or equivocal by an FDA-licensed Lyme disease antibody screening test (e.g., EIA). Results of the Lyme IgM immunoblot should not be considered in patients with 30 or more days of symptoms. TESTING PERFORMED AT [facility]. ORIGINAL REPORT ON FILE IN LAB CONTAINS ADDITIONAL TEST SITE INFORMATION. Performed By: #### L 503.6550, L506.0400, L503.0105, L300.4310, L503.6150, L501.34088, L501.9520, L500.4050, L300.3900, L100.0100 #### [facility] [address] [place], [place], [id number] Absolute neutrophil countOrd ered By: Rylie Wilder on 12-25-2024 Neutrophils (Bld) [#/Vol] 2.6 10*3/uL 2.0-7.7 [facility] Anion gap in Serum or Plasma Ordered By: Rylie Wilder on 12-25-2024 Anion gap [Moles/Vol] 17 mmol/L High 5-15 [facility] BUN/creatinine ratioOrdered By: Rylie Wilder on 12-25-2024 Urea nitrogen/Creatinine [Mass ratio] 14.8 mg/mg 10-20 [facility] Basophil percentageOrdered B y: Rylie Wilder on 12-25-2024 Basophils/100 WBC (Bld) 0.7 % 0-1 [facility] Bilirubin, totalOrdered By: Rylie Wilder on 12-25-2024 Bilirubin [Mass/Vol] 0.24 mg/dL 0.00-1.30 [facility] CBC W/Diff, Automatedon 11-30 Absolute Lymph 2.50 X10 3/uL Normal 0.83-4.51 [facility] Comment on above: Performed By: #### L 503.6550, L506.0400, L503.0105, L300.4310, L503.6150, L501.67784, L501.9520, L500.4050, L300.3900, L100.0100 #### [facility] [address] [place], [place], [id number] (774) Absolute Neut 2.6 X10 3/uL Normal 2.0-7.7 [facility] Comment on above: Performed By: #### L 503.6550, L506.0400, L503.0105, L300.4310, L503.6150, L501.78251, L501.9520, L500.4050, L300.3900, L100.0100 #### [facility] [address] [place], [address] Basophils/100 WBC (Bld) 0.7 % Normal 0-1 [facility] Comment on above: Performed By: #### L 503.6550, L506.0400, L503.0105, L300.4310, L503.6150, L501.28342, L501.9520, L500.4050, L300.3900, L100.0100 #### [facility] [address] [facility] [place], [address] Eosinophils/100 WBC (Bld) 4.7 % Normal 0-5 [facility] Comment on above: Performed By: #### L 503.6550, L506.0400, L503.0105, L300.4310, L503.6150, L501.64976, L501.9520, L500.4050, L300.3900, L100.0100 #### [facility] [address] [facility] [place], [address] Erythrocyte distribution width (RBC) [Ratio] 14.6 % Normal 11.6-14.6 [facility] Comment on above: Performed By: #### L 503.6550, L506.0400, L503.0105, L300.4310, L503.6150, L501.79546, L501.9520, L500.4050, L300.3900, L100.0100 #### [facility] [address] [place], [address] Hematocrit (Bld) [Volume fraction] 36.6 % Low 37-47 [facility] Comment on above: Performed By: #### L 503.6550, L506.0400, L503.0105, L300.4310, L503.6150, L501.82438, L501.9520, L500.4050, L300.3900, L100.0100 #### [facility] [address] [place], [address] Hemoglobin (Bld) [Mass/Vol] 12.3 g/dL Normal 12.0-15. 0 [facility] Comment on above: Performed By: #### L 503.6550, L506.0400, L503.0105, L300.4310, L503.6150, L501.31073, L501.9520, L500.4050, L300.3900, L100.0100 #### [facility] [address] [place], [address] (761 IG% 0.200 Normal 0.0-0.9 [facility] Comment on above: Result Comment: IG% - Immature Granulocytes (promyelocytes, myelocytes and metamyelocytes) > 1% indicates that a LEFT SHIFT is Present. Performed By: #### L 503.6550, L506.0400, L503.0105, L300.4310, L503.6150, L501.93693, L501.9520, L500.4050, L300.3900, L100.0100 #### [facility] [address] [place], [address] Lymphocytes/100 WBC (Bld) 41.5 % High 19-41 [facility] Comment on above: Performed By: #### L 503.6550, L506.0400, L503.0105, L300.4310, L503.6150, L501.66177, L501.9520, L500.4050, L300.3900, L100.0100 #### [facility] [address] [place], [address] MCH (RBC) [Entitic mass] 31.1 pg Normal 27.0-32.0 [facility] Comment on above: Performed By: #### L 503.6550, L506.0400, L503.0105, L300.4310, L503.6150, L501.11740, L501.9520, L500.4050, L300.3900, L100.0100 #### [facility] [address] [place], [address] MCHC (RBC) [Mass/Vol] 33.6 g/dL Normal 32-36 [facility] Comment on above: Performed By: #### L 503.6550, L506.0400, L503.0105, L300.4310, L503.6150, L501.74721, L501.9520, L500.4050, L300.3900, L100.0100 #### [facility] [address] [place], [address] MCV (RBC) [Entitic vol] 92.4 fL Normal 81-99 [facility] Comment on above: Performed By: #### L 503.6550, L506.0400, L503.0105, L300.4310, L503.6150, L501.92032, L501.9520, L500.4050, L300.3900, L100.0100 #### [facility] [address] [place], [address] Monocytes/100 WBC (Bld) 9.6 % Normal 0-10 [facility] Comment on above: Performed By: #### L 503.6550, L506.0400, L503.0105, L300.4310, L503.6150, L501.61073, L501.9520, L500.4050, L300.3900, L100.0100 #### [facility] [address] [place], [address] Neutrophils/100 WBC (Bld) 43.3 % Low 47-70 [facility] Comment on above: Performed By: #### L 503.6550, L506.0400, L503.0105, L300.4310, L503.6150, L501.83963, L501.9520, L500.4050, L300.3900, L100.0100 #### [facility] [address] [place], [address] (084) Nucleated RBC (Bld) [#/Vol] 0 10*3/uL Normal 0-5 [facility] Comment on above: Performed By: #### L 503.6550, L506.0400, L503.0105, L300.4310, L503.6150, L501.38652, L501.9520, L500.4050, L300.3900, L100.0100 #### [facility] [address] [place], [address] (174) Platelet mean volume (Bld) [Entitic vol] 9.2 fL Normal 6.2-12.0 [facility] Comment on above: Performed By: #### L 503.6550, L506.0400, L503.0105, L300.4310, L503.6150, L501.27675, L501.9520, L500.4050, L300.3900, L100.0100 #### [facility] [address] [place], [address] (397) Platelets (Bld) [#/Vol] 348 10*3/uL Normal 150-450 [facility] Comment on above: Performed By: #### L 503.6550, L506.0400, L503.0105, L300.4310, L503.6150, L501.55802, L501.9520, L500.4050, L300.3900, L100.0100 #### [facility] [address] [place], [address] (792) RBC (Bld) [#/Vol] 3.96 10*6/uL Low 4.2-5.4 [facility] Comment on above: Performed By: #### L 503.6550, L506.0400, L503.0105, L300.4310, L503.6150, L501.72488, L501.9520, L500.4050, L300.3900, L100.0100 #### [facility] [address] [place], [place], [id number] (370) RDW SD 49.4 fl High 35.1-43.9 [facility] Comment on above: Performed By: #### L 503.6550, L506.0400, L503.0105, L300.4310, L503.6150, L501.38060, L501.9520, L500.4050, L300.3900, L100.0100 #### [facility] [address] [place], [place], [id number] (402) WBC (Bld) [#/Vol] 6.0 10*3/uL Normal 4.4-11.[address] [facility] Comment on above: Performed By: #### L 503.6550, L506.0400, L503.0105, L300.4310, L503.6150, L501.51791, L501.9520, L500.4050, L300.3900, L100.0100 #### [facility] [address] [place], [place], [id number] Carbon dioxide, total [Moles /volume] in Central venous bloodOrdered By: Rylie Wilder on 12-25-2024 CO2 [Moles/Vol] 18.1 mmol/L Low 21.0-32.0 [facility] Chloride assayOrdered By: Di Wilder on 12-25-2024 Chloride [Moles/Vol] 101 mmol/L 98-108 [facility] Cobalamin (Vitamin B12) [Mas s/Vol]Ordered By: Rylie Wilder on 12-25-2024 Vitamin B12 Level > 4000 pg/mL High 180-914 [facility] Metabolic Prof ilon 12-25-2024 Albumin [Mass/Vol] 4.0 g/dL Normal 3.4-4.[address] [facility] Comment on above: Performed By: #### L 503.6550, L506.0400, L503.0105, L300.4310, L503.6150, L501.83543, L501.9520, L500.4050, L300.3900, L100.0100 #### [facility] [address] [place], [address] Albumin/Globulin [Mass ratio] 1.5 {ratio} Normal 0.9-2.4 [facility] Comment on above: Performed By: #### L 503.6550, L506.0400, L503.0105, L300.4310, L503.6150, L501.03156, L501.9520, L500.4050, L300.3900, L100.0100 #### [facility] [address] [place], [address] ALK PHOS 64 U/L Normal 35-104 [facility] Comment on above: Performed By: #### L 503.6550, L506.0400, L503.0105, L300.4310, L503.6150, L501.08564, L501.9520, L500.4050, L300.3900, L100.0100 #### [facility] [address] [place], [address] ALT [Catalytic activity/Vol] 16 U/L Normal <=34 [facility] Comment on above: Performed By: #### L 503.6550, L506.0400, L503.0105, L300.4310, L503.6150, L501.12472, L501.9520, L500.4050, L300.3900, L100.0100 #### [facility] [address] [place], [address] AST [Catalytic activity/Vol] 22 U/L Normal <=31 [facility] Comment on above: Performed By: #### L 503.6550, L506.0400, L503.0105, L300.4310, L503.6150, L501.23164, L501.9520, L500.4050, L300.3900, L100.0100 #### [facility] [address] [place], [address] Bilirubin [Mass/Vol] 0.24 mg/dL Normal 0.00-1.30 [facility] Comment on above: Performed By: #### L 503.6550, L506.0400, L503.0105, L300.4310, L503.6150, L501.85990, L501.9520, L500.4050, L300.3900, L100.0100 #### [facility] [address] [place], [address] BUN/CRE 14.8 RATIO Normal 10-20 [facility] Comment on above: Performed By: #### L 503.6550, L506.0400, L503.0105, L300.4310, L503.6150, L501.25780, L501.9520, L500.4050, L300.3900, L100.0100 #### [facility] [address] [place], [address] Calcium [Mass/Vol] 9.1 mg/dL Normal 7.6-11.[address] [facility] Comment on above: Performed By: #### L 503.6550, L506.0400, L503.0105, L300.4310, L503.6150, L501.72334, L501.9520, L500.4050, L300.3900, L100.0100 #### [facility] [address] [place], [address] Chloride [Moles/Vol] 101 mmol/L Normal 98-108 [facility] Comment on above: Performed By: #### L 503.6550, L506.0400, L503.0105, L300.4310, L503.6150, L501.98513, L501.9520, L500.4050, L300.3900, L100.0100 #### [facility] [address] [place], [address] CO2 [Moles/Vol] 18.1 mmol/L Low 21.0-32.0 [facility] Comment on above: Performed By: #### L 503.6550, L506.0400, L503.0105, L300.4310, L503.6150, L501.30064, L501.9520, L500.4050, L300.3900, L100.0100 #### [facility] [address] [place], [address] Creatinine [Mass/Vol] 0.73 mg/dL Normal 0.70-1.20 [facility] Comment on above: Performed By: #### L 503.6550, L506.0400, L503.0105, L300.4310, L503.6150, L501.15115, L501.9520, L500.4050, L300.3900, L100.0100 #### [facility] [address] [place], [address] GAP 17 High 5-15 [facility] Comment on above: Performed By: #### L 503.6550, L506.0400, L503.0105, L300.4310, L503.6150, L501.97824, L501.9520, L500.4050, L300.3900, L100.0100 #### [facility] [address] [place], [address] GFR/1.73 sq M.predicted among non-blacks MDRD (S/P/Bld) [Vol rate/Area] 80 mL/min/{1.73_m2} Normal >60 [facility] Comment on above: Result Comment: mL/m in/1.73m2 CKD-EPI Creatinine Equation (2020) Performed By: #### L 503.6550, L506.0400, L503.0105, L300.4310, L503.6150, L501.90716, L501.9520, L500.4050, L300.3900, L100.0100 #### [facility] [address] [place], [address] Globulin (S) [Mass/Vol] 2.7 g/dL Normal 2.2-4.2 [facility] Comment on above: Performed By: #### L 503.6550, L506.0400, L503.0105, L300.4310, L503.6150, L501.24030, L501.9520, L500.4050, L300.3900, L100.0100 #### [facility] [address] [place], [address] Glucose [Mass/Vol] 86 mg/dL Normal 70-[address] [facility] Comment on above: Performed By: #### L 503.6550, L506.0400, L503.0105, L300.4310, L503.6150, L501.18871, L501.9520, L500.4050, L300.3900, L100.0100 #### [facility] [address] [place], [address] Potassium [Moles/Vol] 4.2 mmol/L Normal 3.3-5.1 [facility] Comment on above: Performed By: #### L 503.6550, L506.0400, L503.0105, L300.4310, L503.6150, L501.97110, L501.9520, L500.4050, L300.3900, L100.0100 #### [facility] [address] [place], [address] (722) Sodium [Moles/Vol] 136 mmol/L Normal 133-[address] [facility] Comment on above: Performed By: #### L 503.6550, L506.0400, L503.0105, L300.4310, L503.6150, L501.19166, L501.9520, L500.4050, L300.3900, L100.0100 #### [facility] [address] [place], [address] T PROT 6.7 g/dL Normal 5.9-8.4 [facility] Comment on above: Performed By: #### L 503.6550, L506.0400, L503.0105, L300.4310, L503.6150, L501.34135, L501.9520, L500.4050, L300.3900, L100.0100 #### [facility] [address] [place], [address] Urea nitrogen [Mass/Vol] 11 mg/dL Normal 4-19 [facility] Comment on above: Performed By: #### L 503.6550, L506.0400, L503.0105, L300.4310, L503.6150, L501.18017, L501.9520, L500.4050, L300.3900, L100.0100 #### [facility] [address] [place], [address] Eosinophil percentageOrdered By: Rylie Wilder on 12-25-2024 Eosinophils/100 WBC (Bld) 4.7 % 0-5 [facility] Erythrocyte distribution wid th ratioOrdered By: Rylie Wilder on 12-25-2024 Erythrocyte distribution width (RBC) [Ratio] 14.6 % 11.6-14.6 [facility] Erythrocyte distribution wid th standard deviationOrdered By: Rylie Wilder on 12-25-2024 Erythrocyte distribution width (RBC) [Entitic vol] 49.4 fL High 35.1-43.[address] [facility] Ferritinon 12-25-2024 Ferritin [Mass/Vol] 81 ng/mL Normal 22-378 [facility] Comment on above: Performed By: #### L 503.6550, L506.0400, L503.0105, L300.4310, L503.6150, L501.47053, L501.9520, L500.4050, L300.3900, L100.0100 #### [facility] [address] [place], [place], [id number] Free T3on 12-25-2024 Free T3 [Mass/Vol] 2.6 pg/mL Normal 2.18-3.[address] [facility] Comment on above: Performed By: #### L 503.6550, L506.0400, L503.0105, L300.4310, L503.6150, L501.12990, L501.9520, L500.4050, L300.3900, L100.0100 #### [facility] [address] [place], [place], [id number] Free O4Ktiifmj By: Rylie smith on 12-25-2024 Free Triiodothyronine (T3) pg/dL 2.6 pg/mL 2.18-3.98 [facility] GFR/1.73 sq M.predicted angelica g non-blacks MDRD (S/P/Bld) [Vol rate/Area]Ordered By: Rylie Wilder on 12-25-2024 Estimated GFR (MDRD) Non-Af Amer 80 >60 [facility] Comment on above: mL/min/1.73m2 CKD-EP I Creatinine Equation (2020) Hematocrit Auto (Bld) [Volum e fraction]Ordered By: Rylie Wilder on 12-25-2024 Hematocrit (Bld) [Volume fraction] 36.6 % Low 37-47 [facility] Hemoglobin measurementOrdere d By: Rylie Wilder on 12-25-2024 Hemoglobin (Bld) [Mass/Vol] 12.3 g/dL 12.0-15. 0 [facility] Immature granulocytes/100 WB C Auto (Bld)Ordered By: Rylie Wilder on 12-25-2024 Immature granulocytes/100 WBC (Bld) 0.200 % 0.0-0.9 [facility] Comment on above: IG% - Immature Granu locytes (promyelocytes, myelocytes and metamyelocytes) > 1% indicates that a LEFT SHIFT is Present. Ironon 12-25-2024 Iron [Mass/Vol] 77 ug/dL Normal 50-170 [facility] Comment on above: Performed By: #### L 503.6550, L506.0400, L503.0105, L300.4310, L503.6150, L501.30542, L501.9520, L500.4050, L300.3900, L100.0100 #### [facility] [address] [place], [place], [id number] Iron (Unsp spec) [Mass/Mass] Ordered By: Rylie Wilder on 12-25-2024 Iron [Mass/Vol] 77 ug/dL 50-170 [facility] L503.0106on 12-25-2024 Cobalamin (Vitamin B12) [Mass/Vol] pg/mL High 180-914 [facility] Comment on above: Performed By: #### L 503.6550, L506.0400, L503.0105, L300.4310, L503.6150, L501.51423, L501.9520, L500.4050, L300.3900, L100.0100 #### [facility] [address] [place], [address] Laboratory - Chemistry and C hemistry - challengeOrdered By: Rylie Wilder on 12-25-2024 AST [Catalytic activity/Vol] 22 U/L <32 [facility] Lymphocytes Auto (Unsp spec) [#/Vol]Ordered By: Rylie Wilder on 12-25-2024 Lymphocytes (Bld) [#/Vol] 2.50 10*3/uL 0.83-4.5 1 [facility] Lymphocytes/100 WBC Auto (Un sp spec)Ordered By: Rylie Wilder on 12-25-2024 Lymphocytes/100 WBC (Bld) 41.5 % High 19-41 [facility] MCV (mean corpuscular volume ) determinationOrdered By: Rylie Wilder on 12-25-2024 MCV (RBC) [Entitic vol] 92.4 fL 81-99 [facility] Mean corpuscular hemoglobin (MCH) determinationOrdered By: Rylie Wilder on 12-25-2024 MCH (RBC) [Entitic mass] 31.1 pg 27.0-32.0 [facility] Mean corpuscular hemoglobin concentration (MCHC) determinationOrdered By: Rylie Wilder on 12-25-2024 MCHC (RBC) [Mass/Vol] 33.6 g/dL 32-36 [facility] Mean platelet volume determi nationOrdered By: Rylie Wilder on 12-25-2024 Platelet mean volume (Bld) [Entitic vol] 9.2 fL 6.2-12.0 [facility] Monocyte percentageOrdered B y: Rylie Wilder on 12-25-2024 Monocytes/100 WBC (Bld) 9.6 % 0-10 [facility] Neutrophil percentageOrdered By: Rylie Wilder on 12-25-2024 Neutrophils/100 WBC (Bld) 43.3 % Low 47-70 [facility] Nucleated red blood cell per centageOrdered By: Rylie Wilder on 12-25-2024 Nucleated RBC/100 WBC (Bld) [Ratio] 0 % 0-5 [facility] Platelet countOrdered By: Di Wilder on 12-25-2024 Platelets (Bld) [#/Vol] 348 10*3/uL 150-450 [facility] Potassium (Unsp spec) [Mass/ Vol]Ordered By: Rylie Wilder on 12-25-2024 Potassium [Moles/Vol] 4.2 mmol/L 3.3-5.1 [facility] RBC Auto (Bld) [#/Vol]Ordere d By: Rylie Wilder on 12-25-2024 RBC (Bld) [#/Vol] 3.96 10*6/uL Low 4.2-5.4 [facility] Serum creatinine measurement (mass/volume)Ordered By: Rylie Wilder on 12-25-2024 Creatinine [Mass/Vol] 0.73 mg/dL 0.70-1.20 [facility] Serum globulin measurementOr dered By: Rylie Wilder on 12-25-2024 Globulin (S) [Mass/Vol] 2.7 g/dL 2.2-4.2 [facility] Serum glucose measurement (m ass/volume)Ordered By: Rylie Wilder on 12-25-2024 Glucose [Mass/Vol] 86 mg/dL 70-[address] [facility] Serum or plasma alanine boles otransferase (ALT) measurementOrdered By: Rylie Wilder on 12-25-2024 ALT [Catalytic activity/Vol] 16 U/L <35 [facility] Serum or plasma albumin jossy urement (mass/volume)Ordered By: Rylie Wilder on 12-25-2024 Albumin [Mass/Vol] 4.0 g/dL 3.4-4.[address] [facility] Serum or plasma albumin/glob ulin mass ratioOrdered By: Rylie Wilder on 12-25-2024 Albumin/Globulin [Mass ratio] 1.5 {ratio} 0.9-2.4 [facility] Serum or plasma alkaline elidia sphatase measurementOrdered By: Rylie Wilder on 12-25-2024 ALP [Catalytic activity/Vol] 64 U/L 35-104 [facility] Serum or plasma calcium jossy urement (mass/volume)Ordered By: Rylie Wilder on 12-25-2024 Calcium [Mass/Vol] 9.1 mg/dL 7.6-11.[address] [facility] Serum or plasma ferritin taylor surement (mass/volume)Ordered By: Rylie Wilder on 12-25-2024 Ferritin [Mass/Vol] 81 ng/mL 22-378 [facility] Serum or plasma urea nitroge n measurement (mass/volume)Ordered By: Rylie Wilder on 12-25-2024 Urea nitrogen [Mass/Vol] 11 mg/dL 4-19 [facility] Sodium levelOrdered By: Rylie Wilder on 12-25-2024 Sodium [Moles/Vol] 136 mmol/L 133-[address] [facility] T4 Free Directon 12-25-2024 T4 FREE DIRECT 0.90 ng/dL Normal 0.76-1.46 [facility] Comment on above: Performed By: #### L 503.6550, L506.0400, L503.0105, L300.4310, L503.6150, L501.70239, L501.9520, L500.4050, L300.3900, L100.0100 #### [facility] [address] [place], [place], [id number] T4 freeOrdered By: Rylie Barragan s on 12-25-2024 Free T4 [Mass/Vol] 0.90 ng/dL 0.76-1.[address] [facility] TSH DL <= 0.005 mIU/L QnOrde red By: Rylie Wilder on 12-25-2024 Thyroid Stimulating Hormone (TSH) 4.850 uIU/mL High 0.300-4.200 [facility] Thyroid Stim Hormone (TSH)on 12-25-2024 TSH 4.850 uIU/mL High 0.300-4.200 [facility] Comment on above: Performed By: #### L 503.6550, L506.0400, L503.0105, L300.4310, L503.6150, L501.66181, L501.9520, L500.4050, L300.3900, L100.0100 #### [facility] [address] [place], [address] Total proteinOrdered By: Sabine Wilder on 12-25-2024 Protein [Mass/Vol] 6.7 g/dL 5.9-8.[address] [facility] White blood cell (WBC) count Ordered By: Rylie Wilder on 12-25-2024 WBC (Bld) [#/Vol] 6.0 10*3/uL 4.4-11.[address] [facility] Basic Metabolic Profile (BMP )on 07-04-2024 BUN/CRE 22.2 RATIO High 10-20 [facility] Comment on above: Order Comment: REDRA W. PREVIOUS SPECIMEN REJECTED DUE TOSPECIMEN BEING HEMOLYZED. 07/04/241153 David Paul1 Performed By: #### L 503.6550, L506.0400, L503.0105, L300.4310, L503.6150, L501.44327, L501.9520, L500.4050, L300.3900, L100.0100 #### [facility] [address] [place], [address] CA,Total 9.3 mg/dL Normal 8.5-10.1 [facility] Comment on above: Order Comment: REDRA W. PREVIOUS SPECIMEN REJECTED DUE TOSPECIMEN BEING HEMOLYZED. 07/04/241153 David Godoy.1 Performed By: #### L 503.6550, L506.0400, L503.0105, L300.4310, L503.6150, L501.36320, L501.9520, L500.4050, L300.3900, L100.0100 #### [facility] [address] [place], [address] Chloride [Moles/Vol] 106 mmol/L Normal 98-107 [facility] Comment on above: Order Comment: REDRA W. PREVIOUS SPECIMEN REJECTED DUE TOSPECIMEN BEING HEMOLYZED. 07/04/241153 David Paul1 Performed By: #### L 503.6550, L506.0400, L503.0105, L300.4310, L503.6150, L501.39464, L501.9520, L500.4050, L300.3900, L100.0100 #### [facility] [address] [place], [address] CO2 [Moles/Vol] 26.0 mmol/L Normal 21.0-32.0 [facility] Comment on above: Order Comment: REDRA W. PREVIOUS SPECIMEN REJECTED DUE TOSPECIMEN BEING HEMOLYZED. 07/04/241153 David Godoy.1 Performed By: #### L 503.6550, L506.0400, L503.0105, L300.4310, L503.6150, L501.18293, L501.9520, L500.4050, L300.3900, L100.0100 #### [facility] [address] [place], [address] Creatinine [Mass/Vol] 0.77 mg/dL Normal 0.55-1.02 [facility] Comment on above: Order Comment: CHRISTIAN W. PREVIOUS SPECIMEN REJECTED DUE TOSPECIMEN BEING HEMOLYZED. 07/04/241153 David Godoy.1 Result Comment: The validity of the calculated GFR GFRAA in patients over 70 years has not been determined. Clinical correlation is essential. Performed By: #### L 503.6550, L506.0400, L503.0105, L300.4310, L503.6150, L501.26644, L501.9520, L500.4050, L300.3900, L100.0100 #### [facility] [address] [place], [address] ECRCL 47.06 ml/min Normal [facility] Comment on above: Order Comment: CHRISTIAN W. PREVIOUS SPECIMEN REJECTED DUE TOSPECIMEN BEING HEMOLYZED. 07/04/241153 David Godoy.1 Performed By: #### L 503.6550, L506.0400, L503.0105, L300.4310, L503.6150, L501.49580, L501.9520, L500.4050, L300.3900, L100.0100 #### [facility] [address] [place], [address] EST GFR - AA 92 mL/min Normal >60 [facility] Comment on above: Order Comment: CHRISTIAN W. PREVIOUS SPECIMEN REJECTED DUE TOSPECIMEN BEING HEMOLYZED. 07/04/244 David Godoy.1 Result Comment: Afri can Wallisian GFR Calc Performed By: #### L 503.6550, L506.0400, L503.0105, L300.4310, L503.6150, L501.86335, L501.9520, L500.4050, L300.3900, L100.0100 #### [facility] [address] [place], [address] GAP 6 Normal 5-15 [facility] Comment on above: Order Comment: REDRA W. PREVIOUS SPECIMEN REJECTED DUE TOSPECIMEN BEING HEMOLYZED. 07/04/244 David Godoy.1 Performed By: #### L 503.6550, L506.0400, L503.0105, L300.4310, L503.6150, L501.35159, L501.9520, L500.4050, L300.3900, L100.0100 #### [facility] [address] [place], [address] GFR/1.73 sq M.predicted among non-blacks MDRD (S/P/Bld) [Vol rate/Area] 76 mL/min/{1.73_m2} Normal >60 [facility] Comment on above: Order Comment: REDRA W. PREVIOUS SPECIMEN REJECTED DUE TOSPECIMEN BEING HEMOLYZED. 07/04/244 David Godoy.1 Result Comment: Non- GFR Calc Performed By: #### L 503.6550, L506.0400, L503.0105, L300.4310, L503.6150, L501.98596, L501.9520, L500.4050, L300.3900, L100.0100 #### [facility] [address] [place], [address] Glucose [Mass/Vol] 139 mg/dL High 74-[address] [facility] Comment on above: Order Comment: REDRA W. PREVIOUS SPECIMEN REJECTED DUE TOSPECIMEN BEING HEMOLYZED. 07/04/24 1154 David Godoy.1 Result Comment: Fast ing Glucose result greater than or equal to 126 mg/dL suggests DIABETES MELLITUS per A.D.A. criteria. Performed By: #### L 503.6550, L506.0400, L503.0105, L300.4310, L503.6150, L501.54322, L501.9520, L500.4050, L300.3900, L100.0100 #### [facility] [address] [place], [address] Potassium [Moles/Vol] 4.0 mmol/L Normal 3.5-5.1 [facility] Comment on above: Order Comment: REDRA W. PREVIOUS SPECIMEN REJECTED DUE TOSPECIMEN BEING HEMOLYZED. 07/04/24 1154 David Godoy.1 Performed By: #### L 503.6550, L506.0400, L503.0105, L300.4310, L503.6150, L501.17415, L501.9520, L500.4050, L300.3900, L100.0100 #### [facility] [address] [place], [address] Sodium [Moles/Vol] 138 mmol/L Normal 136-[address] [facility] Comment on above: Order Comment: REDRA W. PREVIOUS SPECIMEN REJECTED DUE TOSPECIMEN BEING HEMOLYZED. 07/04/24 1154 David Paul1 Performed By: #### L 503.6550, L506.0400, L503.0105, L300.4310, L503.6150, L501.59567, L501.9520, L500.4050, L300.3900, L100.0100 #### [facility] [address] [place], [address] Urea nitrogen [Mass/Vol] 17 mg/dL Normal 7-18 [facility] Comment on above: Order Comment: REDRA W. PREVIOUS SPECIMEN REJECTED DUE TOSPECIMEN BEING HEMOLYZED. 07/04/24 1154 David R Stoner.1 Performed By: #### L 503.6550, L506.0400, L503.0105, L300.4310, L503.6150, L501.97544, L501.9520, L500.4050, L300.3900, L100.0100 #### [facility] [address] [place], [address] BUN Normal 7-18 [facility] Comment on above: Order Comment: 'TROP ' Serial specimen #1, #2 or #3: 1 Result Comment: This specimen has been REJECTED due to Laboratory criteria: Hemolyzed. DELONTE RN has been notified of need of recollection. 07/04/241151 David R Stoner Performed By: #### L 500.2500 #### [facility] [address] [place], [address] BUN/CRE Normal 10-20 [facility] Comment on above: Order Comment: 'TROP ' Serial specimen #1, #2 or #3: 1 Result Comment: This specimen has been REJECTED due to Laboratory criteria: Hemolyzed. DELONTE PARIS has been notified of need of recollection. 07/04/241151 David R Stoner Performed By: #### L 500.2500 #### [facility] [address] [place], [address] CA,Total Normal 8.5-10.1 [facility] Comment on above: Order Comment: 'TROP ' Serial specimen #1, #2 or #3: 1 Result Comment: This specimen has been REJECTED due to Laboratory criteria: Hemolyzed. DELONTE PARIS has been notified of need of recollection. 07/04/241151 David R Stoner Performed By: #### L 500.2500 #### [facility] [address] [place], [address] CL Normal 98-107 [facility] Comment on above: Order Comment: 'TROP ' Serial specimen #1, #2 or #3: 1 Result Comment: This specimen has been REJECTED due to Laboratory criteria: Hemolyzed. DELONTE PARIS has been notified of need of recollection. 07/04/241151 David Godoy Performed By: #### L 500.2500 #### [facility] [address] [place], [address] CO2 Normal 21.0-32.0 [facility] Comment on above: Order Comment: 'TROP ' Serial specimen #1, #2 or #3: 1 Result Comment: This specimen has been REJECTED due to Laboratory criteria: Hemolyzed. DELONTE PARIS has been notified of need of recollection. 07/04/241151 David Godoy Performed By: #### L 500.2500 #### [facility] [address] [place], [address] CREAT,SERUM Normal 0.55-1.02 [facility] Comment on above: Order Comment: 'TROP ' Serial specimen #1, #2 or #3: 1 Result Comment: This specimen has been REJECTED due to Laboratory criteria: Hemolyzed. DELONTE PARIS has been notified of need of recollection. 07/04/241151 David Godoy Performed By: #### L 500.2500 #### [facility] [address] [place], [address] EST GFR Normal >60 [facility] Comment on above: Order Comment: 'TROP ' Serial specimen #1, #2 or #3: 1 Result Comment: This specimen has been REJECTED due to Laboratory criteria: Hemolyzed. DELONTE PARIS has been notified of need of recollection. 07/04/241151 David Godoy Performed By: #### L 500.2500 #### [facility] [address] [place], [address] EST GFR - AA Normal >60 [facility] Comment on above: Order Comment: 'TROP ' Serial specimen #1, #2 or #3: 1 Result Comment: This specimen has been REJECTED due to Laboratory criteria: Hemolyzed. DELONTE PARIS has been notified of need of recollection. 07/04/241151 David Godoy Performed By: #### L 500.2500 #### [facility] [address] [place], [address] GAP Normal 5-15 [facility] Comment on above: Order Comment: 'TROP ' Serial specimen #1, #2 or #3: 1 Result Comment: This specimen has been REJECTED due to Laboratory criteria: Hemolyzed. DELONTE RN has been notified of need of recollection. 07/04/241151 David Godoy Performed By: #### L 500.2500 #### [facility] [address] [place], [address] GLU Normal 74-106 [facility] Comment on above: Order Comment: 'TROP ' Serial specimen #1, #2 or #3: 1 Result Comment: This specimen has been REJECTED due to Laboratory criteria: Hemolyzed. DELONTE PARIS has been notified of need of recollection. 07/04/241151 David Godoy Performed By: #### L 500.2500 #### [facility] [address] [place], [address] Potassium Normal 3.5-5.1 [facility] Comment on above: Order Comment: 'TROP ' Serial specimen #1, #2 or #3: 1 Result Comment: This specimen has been REJECTED due to Laboratory criteria: Hemolyzed. DELONTE RN has been notified of need of recollection. 07/04/241151 David Godoy Performed By: #### L 500.2500 #### [facility] [address] [place], [address] Basic Metabolic Profile (BMP) Normal 136-145 [facility] Comment on above: Order Comment: 'TROP ' Serial specimen #1, #2 or #3: 1 Result Comment: This specimen has been REJECTED due to Laboratory criteria: Hemolyzed. DELONTE PARIS has been notified of need of recollection. 07/04/24 1152 David Godoy Performed By: #### L 500.2500 #### [facility] Laboratory [address] [place], [address] Brain/Head without Contrasto n 07-04-2024 Brain/Head without Contrast [facility] Imaging Services [address] [place] [address] Brain/Head without Contrast MR#: [id number] Acct: [id number] Name: SYLVAIN PERLA Rep #: [id number] : 1940 F 83 From: Juarez rebolledo MD PCP: Dr. Rylie Wilder, DO Status: REG ER Study: Brain/Head without Contrast Date of Exam: 01/22 Exam# [id number] Ordering Dr: Sonido Zhao MD -[id number] STUDY: CT BRAIN WITHOUT CONTRAST REASON FOR EXAM: Female, 83 years old. Dizziness RADIATION DOSAGE (If Supplied By Facility): CTDIvol = ( 44.99 ) mGy, DLP = ( 745.49 ) mGycm TECHNIQUE: Transaxial CT imaging of the brain was performed without administration of intravenous contrast material. Individualized dose optimization techniques were used for this CT. COMPARISON: No relevant priors. FINDINGS: Normal soft tissue structures. Normal calvarium. There is mild cerebral atrophy with widening of the extra-axial spaces and ventricular dilatation. There are areas of decreased attenuation within the white matter tracts of the supratentorial brain, consistent with microvascular disease changes. Normal basal ganglia and thalami. Normal brainstem. Normal cerebellum. There is no intracranial hemorrhage. There are no findings of an acute ischemic infarction. Abscess right calcification of the cavernous portion of the internal carotid arteries and vertebral arteries. Partial opacification of the ethmoid sinuses bilaterally. CT/Brain/Head without Contrast IMPRESSION: Chronic involutional changes of the brain. Electronically Signed: Juarez Pickering MD at 12:28 EDT , CC: Dr. Sonido Zhao MD; Dr. Rylie Wilder DO [employer]: Signed Normal [facility] CBC W/Diff, Automatedon 10-0 -2023 Absolute Lymph 2.33 X10 3/uL Normal 0.83-4.51 [facility] Comment on above: Performed By: #### L 503.6550, L506.0400, L503.0105, L300.4310, L503.6150, L501.87332, L501.9520, L500.4050, L300.3900, L100.0100 #### [facility] [address] [place], [address] Absolute Neut 5.2 X10 3/uL Normal 2.0-7.7 [facility] Comment on above: Performed By: #### L 503.6550, L506.0400, L503.0105, L300.4310, L503.6150, L501.54368, L501.9520, L500.4050, L300.3900, L100.0100 #### [facility] [address] [place], [address] Basophils/100 WBC (Bld) 0.5 % Normal 0-1 [facility] Comment on above: Performed By: #### L 503.6550, L506.0400, L503.0105, L300.4310, L503.6150, L501.93842, L501.9520, L500.4050, L300.3900, L100.0100 #### [facility] [address] [place], [address] Eosinophils/100 WBC (Bld) 2.9 % Normal 0-5 [facility] Comment on above: Performed By: #### L 503.6550, L506.0400, L503.0105, L300.4310, L503.6150, L501.49866, L501.9520, L500.4050, L300.3900, L100.0100 #### [facility] [address] [facility] [place], [address] Erythrocyte distribution width (RBC) [Ratio] 14.9 % High 11.6-14.6 [facility] Comment on above: Performed By: #### L 503.6550, L506.0400, L503.0105, L300.4310, L503.6150, L501.72816, L501.9520, L500.4050, L300.3900, L100.0100 #### [facility] [address] [facility] [place], [address] Hematocrit (Bld) [Volume fraction] 37.2 % Normal 37-47 [facility] Comment on above: Performed By: #### L 503.6550, L506.0400, L503.0105, L300.4310, L503.6150, L501.96204, L501.9520, L500.4050, L300.3900, L100.0100 #### [facility] [address] [facility] [place], [address] Hemoglobin (Bld) [Mass/Vol] 12.2 g/dL Normal 12.0-15. 0 [facility] Comment on above: Performed By: #### L 503.6550, L506.0400, L503.0105, L300.4310, L503.6150, L501.36854, L501.9520, L500.4050, L300.3900, L100.0100 #### [facility] [address] [facility] [place], [place], [id number] IG% 0.400 Normal 0.0-0.9 [facility] Comment on above: Result Comment: IG% - Immature Granulocytes (promyelocytes, myelocytes and metamyelocytes) > 1% indicates that a LEFT SHIFT is Present. Performed By: #### L 503.6550, L506.0400, L503.0105, L300.4310, L503.6150, L501.02517, L501.9520, L500.4050, L300.3900, L100.0100 #### [facility] [address] [facility] [place], [address] Lymphocytes/100 WBC (Bld) 27.4 % Normal 19-41 [facility] Comment on above: Performed By: #### L 503.6550, L506.0400, L503.0105, L300.4310, L503.6150, L501.27565, L501.9520, L500.4050, L300.3900, L100.0100 #### [facility] [address] [place], [address] MCH (RBC) [Entitic mass] 30.2 pg Normal 27.0-32.0 [facility] Comment on above: Performed By: #### L 503.6550, L506.0400, L503.0105, L300.4310, L503.6150, L501.99877, L501.9520, L500.4050, L300.3900, L100.0100 #### [facility] [address] [facility] [place], [address] ( MCHC (RBC) [Mass/Vol] 32.8 g/dL Normal 32-36 [facility] Comment on above: Performed By: #### L 503.6550, L506.0400, L503.0105, L300.4310, L503.6150, L501.53503, L501.9520, L500.4050, L300.3900, L100.0100 #### [facility] [address] [place], [address] MCV (RBC) [Entitic vol] 92.1 fL Normal 81-99 [facility] Comment on above: Performed By: #### L 503.6550, L506.0400, L503.0105, L300.4310, L503.6150, L501.16877, L501.9520, L500.4050, L300.3900, L100.0100 #### [facility] [address] [place], [address] Monocytes/100 WBC (Bld) 7.8 % Normal 0-10 [facility] Comment on above: Performed By: #### L 503.6550, L506.0400, L503.0105, L300.4310, L503.6150, L501.14685, L501.9520, L500.4050, L300.3900, L100.0100 #### [facility] [address] [place] [place], [address] Neutrophils/100 WBC (Bld) 61.0 % Normal 47-70 [facility] Comment on above: Performed By: #### L 503.6550, L506.0400, L503.0105, L300.4310, L503.6150, L501.31517, L501.9520, L500.4050, L300.3900, L100.0100 #### [facility] [address] [place], [address] Nucleated RBC (Bld) [#/Vol] 0 10*3/uL Normal 0-5 [facility] Comment on above: Performed By: #### L 503.6550, L506.0400, L503.0105, L300.4310, L503.6150, L501.50476, L501.9520, L500.4050, L300.3900, L100.0100 #### [facility] [address] [place], [address] Platelet mean volume (Bld) [Entitic vol] 9.3 fL Normal 6.2-12.0 [facility] Comment on above: Performed By: #### L 503.6550, L506.0400, L503.0105, L300.4310, L503.6150, L501.60752, L501.9520, L500.4050, L300.3900, L100.0100 #### [facility] [address] [place], [address] Platelets (Bld) [#/Vol] 336 10*3/uL Normal 150-450 [facility] Comment on above: Performed By: #### L 503.6550, L506.0400, L503.0105, L300.4310, L503.6150, L501.94926, L501.9520, L500.4050, L300.3900, L100.0100 #### [facility] [address] [place], [address] RBC (Bld) [#/Vol] 4.04 10*6/uL Low 4.2-5.4 [facility] Comment on above: Performed By: #### L 503.6550, L506.0400, L503.0105, L300.4310, L503.6150, L501.43964, L501.9520, L500.4050, L300.3900, L100.0100 #### [facility] [address] [place], [address] RDW SD 50.8 fl High 35.1-43.9 [facility] Comment on above: Performed By: #### L 503.6550, L506.0400, L503.0105, L300.4310, L503.6150, L501.13576, L501.9520, L500.4050, L300.3900, L100.0100 #### [facility] [address] [place], [address] WBC (Bld) [#/Vol] 8.5 10*3/uL Normal 4.4-11.[address] [facility] Comment on above: Performed By: #### L 503.6550, L506.0400, L503.0105, L300.4310, L503.6150, L501.03701, L501.9520, L500.4050, L300.3900, L100.0100 #### [facility] [address] [place], [place], [address] Emergency Department Summary on 07-04-2024 Emergency Department Summary [facility] Medical Records Department [address] [facility] [address] Emergency Department Summary 07/04/24 MR#: [id number] Acct: [id number] Name: SYLVAIN PERLA Rep #: [id number] : 1940 83 From: Sonido Zhao MD PCP: Dr. Rylie Wilder, DO Status:REG ER Location: ED HPI History of Present Illness Chief Complaint: Hypertension Informant: patient and spouse/S.O. Narrative Narrative: 83 old female evaluated about 5 hours after she started having dizziness. She states she woke up with it and then when she got out of bed it was worse and lasted about 10 minutes and went away. He felt like things were spinning and moving she felt nauseated no vomiting. She was concerned about the symptoms even though they resolved, checked her blood pressure and it was 167 systolic which is 30-40 points higher than she is used to. She checked her multiple times on the way here, the last check it was 147 systolic. She does not take blood pressure medication but she took one of her husbands losartan because she was concerned about the numbers. She does not have a headache or tinnitus or an earache she has a minor cough but does not feel like she has a cold she has not had a cold/infection in the last several weeks. She denies any recent head injury. When she woke up to go to the bathroom at 330 this morning she does not recall having any of the dizziness. She has had no problems walking since this episode. She denies any new numbness or weakness in any extremity or problems talking or understanding others. She has paroxysmal atrial fibrillation. She states she often feels it when she goes into it, she thinks she felt it briefly this morning with some fluttering and a little bit of chest pressure but that went away and has not recurred. She takes apixaban and diltiazem for that reason. [facility] Medical History Paroxysmal atrial fibrillation Non-rheumatic mitral regurgitation Non-rheumatic tricuspid valve insufficiency Syncope and collapse Post-Lyme disease syndrome Atrial fibrillation Mixed hyperlipidemia Essential hypertension Hypothyroidism Type 2 diabetes mellitus Home Medications ???Medication ???Instructions ???Recorded ???Last Taken ???Type glipizide 10 mg tablet 10 mg PO DAILY diabetes 07/18/22 02/22/23 History timolol 0.5 % eye drops 1 drp ophthalmic (eye) BID glaucoma 07/18/22 02/22/23 History apple cider vinegar 600 mg capsule 600 mg PO .COMPLEX supplement 07/27/22 Unknown History garlic 500 mg capsule 500 mg PO .2-3x week supplement 07/27/22 Unknown History insulin glargine 100 unit/mL (3 20 unit subcut QAM diabetes 07/27/22 02/22/23 History mL) subcutaneous pen (Basaglar KwikPen U-100 Insulin) turmeric 400 mg capsule 400 mg PO .COMPLEX supplement 07/27/22 02/22/23 History ubidecarenone-omega 3-vit E 25 1 cap PO .COMPLEX supplement 07/27/22 Unknown History mg-150 (90-60) mg-200 unit capsule (Co X-54-Tbuumum E-Fish Oil) ascorbic acid (vitamin C) 1,000 mg 1 g PO DAILY supplement 10/26/22 02/22/23 History tablet cholecalciferol (vitamin D3) 125 125 mcg PO DAILY supplement 10/26/22 02/22/23 History mcg (5,000 unit) tablet cyanocobalamin (vitamin B-12) 5,000 mcg PO DAILY supplement 10/26/22 02/22/23 History 5,000 mcg tablet, immediate and extend release apixaban 5 mg tablet (Eliquis) 5 mg PO BID #180 tabs 12/25/22 02/22/23 Rx pantoprazole 40 mg tablet,delayed 40 mg PO DAILY GERD 02/22/23 02/22/23 History release amoxicillin 875 mg-potassium 1 tab PO BID antibiotic #1 TAB 02/24/23 02/22/23 Rx clavulanate 125 mg tablet diltiazem HCl 120 mg capsule,24 120 mg PO DAILY #90 caps 07/23/23 Unknown Rx hr,extended release meclizine 25 mg tablet 25 mg PO Q8H PRN PRN Dizziness #15 07/04/24 Unknown Rx tabs Allergy/AdvReac Type Severity Reaction Status Date / Time No Known Allergies Allergy Verified 07/04/24 10:17 Family History Mother Cancer Liver Brother Diabetes Cancer Lung Sister Hypertension Cancer Skin Surgical History no surgical history Social History Smoking Status: Never smoker alcohol intake: never substance use type: does not use caffeine: Yes Type: coffee Number of servings: 2 ROS ROS ED Constitutional Constitutional ED: Denies chills or fever(s) Eyes Eyes: Denies change in vision or diplopia ENT ENT ED: Reports dizziness; Denies ear pain, rhinorrhea, sore throat or tinnitus Cardiovascular Cardiovascular: Reports chest pain and palpitations Respiratory/Chest Respiratory/Chest: Reports cough; Denies dyspnea or sputum Gastrointestinal Gastrointestinal: Reports nausea; Denies abdominal pain, diarrhea or (more content not included)... Normal [facility] L501.4020on 07-04-2024 TROPONIN-I HS 10 pg/mL Normal 3.0-54.0 [facility] Comment on above: Order Comment: CHRISTIAN Dyer PREVIOUS SPECIMEN REJECTED DUE TOSPECIMEN BEING HEMOLYZED. 07/04/24 1154 David Godoy.1 Result Comment: Samy pennington Note: New Test Units and Gender Specific Reference Ranges. For more information see Policy Stat Procedure [facility] High Sensitivity Troponin (TNIH) and attachments. Performed By: #### L 503.6539, L506.0400, L503.0105, L300.4310, L503.6150, L501.43341, L501.9520, L500.4050, L300.3900, L100.0100 #### [facility] [place], [address] Absolute lymphocyte countOrd ered By: Rylie Wilder on 02-04-2024 Lymphocytes Auto (Unsp spec) [#/Vol] 2.54 10*3/uL 0.83-4.51 [facility] Activated partial thrombopla stin time (aPTT) in platelet poor plasma by coagulation aOrdered By: Rylie Wilder on 02-04-2024 aPTT Coag (PPP) [Time] 34.0 s 24.1-36.2 [facility] Automated lymphocyte count a s percentage of total leukocytesOrdered By: Rylie Wilder on 02-04-2024 Lymphocytes/100 WBC Auto (Unsp spec) 38.6 % 19-41 [facility] Basophil percentageOrdered B y: Rylie Wilder on 02-04-2024 Basophils/100 WBC (Bld) 0.8 % 0-1 [facility] Bilirubin [Mass/Vol] 0.40 mg/dL 0.20-1.00 [facility] Comment on above: For patients on eltr ombopag therapy, use of Dimension [facility] TBIL is not recommended. Chloride [Moles/Vol] 106 mmol/L 98-107 [facility] Eosinophils/100 WBC (Bld) 4.4 % 0-5 [facility] Glucose [Mass/Vol] 93 mg/dL 74-[address] [facility] Hemoglobin (Bld) [Mass/Vol] 11.9 g/dL 12.0-15. 0 [facility] Monocytes/100 WBC (Bld) 11.1 % 0-10 [facility] Neutrophils (Bld) [#/Vol] 3.0 10*3/uL 2.0-7.7 [facility] Neutrophils/100 WBC (Bld) 44.8 % 47-70 [facility] Potassium [Moles/Vol] 4.4 mmol/L 3.5-5.1 [facility] Protein [Mass/Vol] 7.5 g/dL 6.4-8.[address] [facility] Sodium [Moles/Vol] 138 mmol/L 136-[address] [facility] WBC (Bld) [#/Vol] 6.6 10*3/uL 4.4-11.[address] [facility] CBC W/Diff, Automatedon 05-0 6-2023 Absolute Lymph 2.54 X10 3/uL Normal 0.83-4.51 [facility] Comment on above: Performed By: #### L 503.6550, L506.0400, L503.0105, L300.4310, L503.6150, L501.54933, L501.9520, L500.4050, L300.3900, L100.0100 #### [facility] [address] [place], [address] Absolute Neut 3.0 X10 3/uL Normal 2.0-7.7 [facility] Comment on above: Performed By: #### L 503.6550, L506.0400, L503.0105, L300.4310, L503.6150, L501.95542, L501.9520, L500.4050, L300.3900, L100.0100 #### [facility] [address] [place], [address] Basophils/100 WBC (Bld) 0.8 % Normal 0-1 [facility] Comment on above: Performed By: #### L 503.6550, L506.0400, L503.0105, L300.4310, L503.6150, L501.58346, L501.9520, L500.4050, L300.3900, L100.0100 #### [facility] [address] [place], [address] Eosinophils/100 WBC (Bld) 4.4 % Normal 0-5 [facility] Comment on above: Performed By: #### L 503.6550, L506.0400, L503.0105, L300.4310, L503.6150, L501.39025, L501.9520, L500.4050, L300.3900, L100.0100 #### [facility] [address] [facility] [place], [address] Erythrocyte distribution width (RBC) [Ratio] 15.7 % High 11.6-14.6 [facility] Comment on above: Performed By: #### L 503.6550, L506.0400, L503.0105, L300.4310, L503.6150, L501.97973, L501.9520, L500.4050, L300.3900, L100.0100 #### [facility] [address] [place], [address] (287) Hematocrit (Bld) [Volume fraction] 36.0 % Low 37-47 [facility] Comment on above: Performed By: #### L 503.6550, L506.0400, L503.0105, L300.4310, L503.6150, L501.54332, L501.9520, L500.4050, L300.3900, L100.0100 #### [facility] [address] [place], [address] (180) Hemoglobin (Bld) [Mass/Vol] 11.9 g/dL Low 12.0-15. 0 [facility] Comment on above: Performed By: #### L 503.6550, L506.0400, L503.0105, L300.4310, L503.6150, L501.83892, L501.9520, L500.4050, L300.3900, L100.0100 #### [facility] [address] [place], [address] ( IG% 0.300 Normal 0.0-0.9 [facility] Comment on above: Result Comment: IG% - Immature Granulocytes (promyelocytes, myelocytes and metamyelocytes) > 1% indicates that a LEFT SHIFT is Present. Performed By: #### L 503.6550, L506.0400, L503.0105, L300.4310, L503.6150, L501.51194, L501.9520, L500.4050, L300.3900, L100.0100 #### [facility] [address] [place], [address] Lymphocytes/100 WBC (Bld) 38.6 % Normal 19-41 [facility] Comment on above: Performed By: #### L 503.6550, L506.0400, L503.0105, L300.4310, L503.6150, L501.40304, L501.9520, L500.4050, L300.3900, L100.0100 #### [facility] [address] [place], [address] MCH (RBC) [Entitic mass] 30.7 pg Normal 27.0-32.0 [facility] Comment on above: Performed By: #### L 503.6550, L506.0400, L503.0105, L300.4310, L503.6150, L501.50506, L501.9520, L500.4050, L300.3900, L100.0100 #### [facility] [address] [place], [address] MCHC (RBC) [Mass/Vol] 33.1 g/dL Normal 32-36 [facility] Comment on above: Performed By: #### L 503.6550, L506.0400, L503.0105, L300.4310, L503.6150, L501.38150, L501.9520, L500.4050, L300.3900, L100.0100 #### [facility] [address] [place], [address] MCV (RBC) [Entitic vol] 92.8 fL Normal 81-99 [facility] Comment on above: Performed By: #### L 503.6550, L506.0400, L503.0105, L300.4310, L503.6150, L501.84045, L501.9520, L500.4050, L300.3900, L100.0100 #### [facility] [address] [place], [place], [id number] (587) Monocytes/100 WBC (Bld) 11.1 % High 0-10 [facility] Comment on above: Performed By: #### L 503.6550, L506.0400, L503.0105, L300.4310, L503.6150, L501.48572, L501.9520, L500.4050, L300.3900, L100.0100 #### [facility] [address] [place], [place], [id number] (441) Neutrophils/100 WBC (Bld) 44.8 % Low 47-70 [facility] Comment on above: Performed By: #### L 503.6550, L506.0400, L503.0105, L300.4310, L503.6150, L501.77901, L501.9520, L500.4050, L300.3900, L100.0100 #### [facility] [address] [place], [place], [id number] (904) Nucleated RBC (Bld) [#/Vol] 0 10*3/uL Normal 0-5 [facility] Comment on above: Performed By: #### L 503.6550, L506.0400, L503.0105, L300.4310, L503.6150, L501.82766, L501.9520, L500.4050, L300.3900, L100.0100 #### [facility] [address] [place], [place], [id number] (735) Platelet mean volume (Bld) [Entitic vol] 9.5 fL Normal 6.2-12.0 [facility] Comment on above: Performed By: #### L 503.6550, L506.0400, L503.0105, L300.4310, L503.6150, L501.35159, L501.9520, L500.4050, L300.3900, L100.0100 #### [facility] [address] [place], [address] Platelets (Bld) [#/Vol] 365 10*3/uL Normal 150-450 [facility] Comment on above: Performed By: #### L 503.6550, L506.0400, L503.0105, L300.4310, L503.6150, L501.98531, L501.9520, L500.4050, L300.3900, L100.0100 #### [facility] [address] [place], [address] RBC (Bld) [#/Vol] 3.88 10*6/uL Low 4.2-5.4 [facility] Comment on above: Performed By: #### L 503.6550, L506.0400, L503.0105, L300.4310, L503.6150, L501.14567, L501.9520, L500.4050, L300.3900, L100.0100 #### [facility] [address] [place], [address] RDW SD 53.3 fl High 35.1-43.9 [facility] Comment on above: Performed By: #### L 503.6550, L506.0400, L503.0105, L300.4310, L503.6150, L501.87861, L501.9520, L500.4050, L300.3900, L100.0100 #### [facility] [address] [place], [address] WBC (Bld) [#/Vol] 6.6 10*3/uL Normal 4.4-11.[address] [facility] Comment on above: Performed By: #### L 503.6550, L506.0400, L503.0105, L300.4310, L503.6150, L501.92653, L501.9520, L500.4050, L300.3900, L100.0100 #### [facility] [address] [place], [place], [id number] [facility] Metabolic Prof [facility] 02-04-2024 Albumin [Mass/Vol] 3.7 g/dL Normal 3.2-5.[address] [facility] Comment on above: Performed By: #### L 503.6550, L506.0400, L503.0105, L300.4310, L503.6150, L501.32930, L501.9520, L500.4050, L300.3900, L100.0100 #### [facility] [address] [place], [place], [id number] Albumin/Globulin [Mass ratio] 1.0 {ratio} Normal 0.9-2.4 [facility] Comment on above: Performed By: #### L 503.6550, L506.0400, L503.0105, L300.4310, L503.6150, L501.31878, L501.9520, L500.4050, L300.3900, L100.0100 #### [facility] [address] [place], [place], [id number] ALK P 59 U/L Normal 45-117 [facility] Comment on above: Performed By: #### L 503.6550, L506.0400, L503.0105, L300.4310, L503.6150, L501.85551, L501.9520, L500.4050, L300.3900, L100.0100 #### [facility] [address] [place], [address] ALT [Catalytic activity/Vol] 23 U/L Normal 13-56 [facility] Comment on above: Performed By: #### L 503.6550, L506.0400, L503.0105, L300.4310, L503.6150, L501.79080, L501.9520, L500.4050, L300.3900, L100.0100 #### [facility] [address] [place], [address] AST [Catalytic activity/Vol] 21 U/L Normal 15-37 [facility] Comment on above: Performed By: #### L 503.6550, L506.0400, L503.0105, L300.4310, L503.6150, L501.17729, L501.9520, L500.4050, L300.3900, L100.0100 #### [facility] [address] [place], [place], [id number] Bilirubin [Mass/Vol] 0.40 mg/dL Normal 0.20-1.00 [facility] Comment on above: Result Comment: For patients on eltrombopag therapy, use of Dimension [place] TBIL is not recommended. Performed By: #### L 503.6550, L506.0400, L503.0105, L300.4310, L503.6150, L501.44322, L501.9520, L500.4050, L300.3900, L100.0100 #### [facility] [address] [place], [place], [id number] (649) BUN/CRE 18.3 RATIO Normal 10-20 [facility] Comment on above: Performed By: #### L 503.6550, L506.0400, L503.0105, L300.4310, L503.6150, L501.30463, L501.9520, L500.4050, L300.3900, L100.0100 #### [facility] [address] [place], [place], [id number] CA,Total 9.1 mg/dL Normal 8.5-10.1 [facility] Comment on above: Performed By: #### L 503.6550, L506.0400, L503.0105, L300.4310, L503.6150, L501.56592, L501.9520, L500.4050, L300.3900, L100.0100 #### [facility] [address] [place], [place], [phone] (305) Chloride [Moles/Vol] 106 mmol/L Normal 98-107 [facility] Comment on above: Performed By: #### L 503.6550, L506.0400, L503.0105, L300.4310, L503.6150, L501.17760, L501.9520, L500.4050, L300.3900, L100.0100 #### [facility] [address] [place], [place], [id number] CO2 [Moles/Vol] 28.0 mmol/L Normal 21.0-32.0 [facility] Comment on above: Performed By: #### L 503.6550, L506.0400, L503.0105, L300.4310, L503.6150, L501.52981, L501.9520, L500.4050, L300.3900, L100.0100 #### [facility] [address] [place], [place], [id number] Creatinine [Mass/Vol] 0.76 mg/dL Normal 0.55-1.02 [facility] Comment on above: Result Comment: The validity of the calculated GFR GFRAA in patients over 70 years has not been determined. Clinical correlation is essential. Performed By: #### L 503.6550, L506.0400, L503.0105, L300.4310, L503.6150, L501.72235, L501.9520, L500.4050, L300.3900, L100.0100 #### [facility] [address] [place], [address] EST GFR - AA 93 mL/min Normal >60 [facility] Comment on above: Result Comment: Afri can Wallisian GFR Calc Performed By: #### L 503.6550, L506.0400, L503.0105, L300.4310, L503.6150, L501.69038, L501.9520, L500.4050, L300.3900, L100.0100 #### [facility] [address] [place], [place], [id number] GAP 4 Low 5-15 [facility] Comment on above: Performed By: #### L 503.6550, L506.0400, L503.0105, L300.4310, L503.6150, L501.47507, L501.9520, L500.4050, L300.3900, L100.0100 #### [facility] [address] [place], [place], [id number] GFR/1.73 sq M.predicted among non-blacks MDRD (S/P/Bld) [Vol rate/Area] 76 mL/min/{1.73_m2} Normal >60 [facility] Comment on above: Result Comment: Non- GFR Calc Performed By: #### L 503.6550, L506.0400, L503.0105, L300.4310, L503.6150, L501.62988, L501.9520, L500.4050, L300.3900, L100.0100 #### [facility] [address] [place], [place], [id number] (154) Globulin (S) [Mass/Vol] 3.8 g/dL Normal 2.2-4.2 [facility] Comment on above: Performed By: #### L 503.6550, L506.0400, L503.0105, L300.4310, L503.6150, L501.33078, L501.9520, L500.4050, L300.3900, L100.0100 #### [facility] [address] [place], [address] Glucose [Mass/Vol] 93 mg/dL Normal 74-[address] [facility] Comment on above: Performed By: #### L 503.6550, L506.0400, L503.0105, L300.4310, L503.6150, L501.32354, L501.9520, L500.4050, L300.3900, L100.0100 #### [facility] [address] [place], [address] Potassium [Moles/Vol] 4.4 mmol/L Normal 3.5-5.1 [facility] Comment on above: Performed By: #### L 503.6550, L506.0400, L503.0105, L300.4310, L503.6150, L501.29382, L501.9520, L500.4050, L300.3900, L100.0100 #### [facility] [address] [place], [address] Sodium [Moles/Vol] 138 mmol/L Normal 136-[address] [facility] Comment on above: Performed By: #### L 503.6550, L506.0400, L503.0105, L300.4310, L503.6150, L501.58813, L501.9520, L500.4050, L300.3900, L100.0100 #### [facility] [address] [place], [address] T PROT 7.5 g/dL Normal 6.4-8.2 [facility] Comment on above: Performed By: #### L 503.6550, L506.0400, L503.0105, L300.4310, L503.6150, L501.52931, L501.9520, L500.4050, L300.3900, L100.0100 #### [facility] [address] [place], [address] Urea nitrogen [Mass/Vol] 14 mg/dL Normal 7-18 [facility] Comment on above: Performed By: #### L 503.6550, L506.0400, L503.0105, L300.4310, L503.6150, L501.48753, L501.9520, L500.4050, L300.3900, L100.0100 #### [facility] [address] [place], [address] Determination of erythrocyte mean corpuscular volume (MCV)Ordered By: Rylie Wilder on 02-04-2024 MCV (RBC) [Entitic vol] 92.8 fL 81-99 [facility] Erythrocyte distribution wid th ratioOrdered By: Rylie Wilder on 02-04-2024 Erythrocyte distribution width (RBC) [Ratio] 15.7 % 11.6-14.6 [facility] Erythrocyte distribution wid th standard deviationOrdered By: Rylie Wilder on 02-04-2024 Erythrocyte distribution width (RBC) [Entitic vol] 53.3 fL 35.1-43.[address] [facility] Ferritinon 02-04-2024 Ferritin [Mass/Vol] 38 ng/mL Normal 8-252 [facility] Comment on above: Performed By: #### L 503.6550, L506.0400, L503.0105, L300.4310, L503.6150, L501.22652, L501.9520, L500.4050, L300.3900, L100.0100 #### [facility] [address] [place], [address] Free T3on 02-04-2024 Free T3 [Mass/Vol] 2.6 pg/mL Normal 2.18-3.[address] [facility] Comment on above: Performed By: #### L 503.6550, L506.0400, L503.0105, L300.4310, L503.6150, L501.54215, L501.9520, L500.4050, L300.3900, L100.0100 #### [facility] [address] [place], [place], [id number] Hematocrit Auto (Bld) [Volum e fraction]Ordered By: Rylie Wilder on 02-04-2024 Hematocrit (Bld) [Volume fraction] 36.0 % 37-47 [facility] Immature granulocytes/100 WB C Auto (Bld)Ordered By: Rylie Wilder on 02-04-2024 Immature granulocytes/100 WBC (Bld) 0.300 % 0.0-0.9 [facility] Comment on above: IG% - Immature Granu locytes (promyelocytes, myelocytes and metamyelocytes) > 1% indicates that a LEFT SHIFT is Present. Ironon 02-04-2024 Iron [Mass/Vol] 76 ug/dL Normal 50-170 [facility] Comment on above: Performed By: #### L 503.6550, L506.0400, L503.0105, L300.4310, L503.6150, L501.69307, L501.9520, L500.4050, L300.3900, L100.0100 #### [facility] [address] [place], [place], [id number] Iron measurement (mass/mass) Ordered By: Rylie Wilder on 02-04-2024 Iron (Unsp spec) [Mass/Mass] 76 ug/dL 50-170 [facility] - Chemistry and C hemistry - challengeOrdered By: Rylie Wilder on 02-04-2024 Albumin/Globulin [Mass ratio] 1.0 {ratio} 0.9-2.4 [facility] ALP [Catalytic activity/Vol] 59 U/L 45-117 [facility] ALT [Catalytic activity/Vol] 23 U/L 13-56 [facility] CO2 [Moles/Vol] 28.0 mmol/L 21.0-32.0 [facility] Ferritin [Mass/Vol] 38 ng/mL 8-252 [facility] Globulin (S) [Mass/Vol] 3.8 g/dL 2.2-4.2 [facility] Urea nitrogen/Creatinine [Mass ratio] 18.3 mg/mg 10-20 [facility] - CoagulationOrde red By: Rylie Wilder on 02-04-2024 INR Coag (Bld) [Relative time] 1.1 {INR} [facility] PT Coag (PPP) [Time] 14.0 s 11.7-14.9 [facility] - Hematology and Cell countsOrdered By: Rylie Wilder on 02-04-2024 MCH (RBC) [Entitic mass] 30.7 pg 27.0-32.0 [facility] MCHC (RBC) [Mass/Vol] 33.1 g/dL 32-36 [facility] Nucleated RBC/100 WBC (Bld) [Ratio] 0 % 0-5 [facility] Platelet mean volume (Bld) [Entitic vol] 9.5 fL 6.2-12.0 [facility] Platelets (Bld) [#/Vol] 365 10*3/uL 150-450 [facility] No Panel InformationOrdered By: Rylie Wilder on 02-04-2024 Estimated GFR (MDRD) Amer 93 mL/min >60 [facility] Comment on above: GFR Calc Estimated GFR (MDRD) Non-Af Amer 76 mL/min >60 [facility] Comment on above: Non- GFR Calc Free Triiodothyronine (T3) pg/dL 2.6 pg/mL 2.18-3.98 [facility] Vitamin B12 Level > 2000 pg/mL 211-911 [facility] Partial Thromboplast Timeon 02-04-2024 aPTT Coag (Bld) [Time] 34.0 s Normal 24.1-36.2 [facility] Comment on above: Performed By: #### L 503.6550, L506.0400, L503.0105, L300.4310, L503.6150, L501.36632, L501.9520, L500.4050, L300.3900, L100.0100 #### [facility] [address] [place], [place], [address] Prothrombin Time w/INRon INR Coag (PPP) [Relative time] 1.1 {INR} Normal [facility] Comment on above: Performed By: #### L 503.6550, L506.0400, L503.0105, L300.4310, L503.6150, L501.22918, L501.9520, L500.4050, L300.3900, L100.0100 #### [facility] [address] [place], [place], [id number] PT Coag (PPP) [Time] 14.0 s Normal 11.7-14.9 [facility] Comment on above: Performed By: #### L 503.6550, L506.0400, L503.0105, L300.4310, L503.6150, L501.32686, L501.9520, L500.4050, L300.3900, L100.0100 #### [facility] [address] [place], [place], [id number] RBC Auto (Bld) [#/Vol]Ordere d By: Rylie Wilder on 02-04-2024 RBC (Bld) [#/Vol] 3.88 10*6/uL 4.2-5.4 [facility] Serum or plasma calcium jossy urement (mass/volume)Ordered By: Rylie Wilder on 02-04-2024 Calcium [Mass/Vol] 9.1 mg/dL 8.5-10.[address] [facility] Serum or plasma creatinine m easurement (mass/volume)Ordered By: Rylie Wilder on 02-04-2024 Creatinine [Mass/Vol] 0.76 mg/dL 0.55-1.02 [facility] Comment on above: The validity of the calculated GFR & GFRAA in patients over 70 years has not been determined. Clinical correlation is essential. Serum or plasma thyroid stim ulating hormone (TSH) measurement (units/volume)Ordered By: Rylie Wilder on 02-04-2024 TSH Qn 4.55 uIU/mL 0.358-3.74 [facility] Serum or plasma urea nitroge n measurement (mass/volume)Ordered By: Rylie Wilder on 02-04-2024 Urea nitrogen [Mass/Vol] 14 mg/dL 7-18 [facility] T4 Free Directon 02-04-2024 T4 FREE DIRECT 0.72 ng/dL Low 0.76-1.46 [facility] Comment on above: Performed By: #### L 503.6550, L506.0400, L503.0105, L300.4310, L503.6150, L501.26360, L501.9520, L500.4050, L300.3900, L100.0100 #### [facility] [address] [place], [place], [id number] Thin prep Papanicolaou smear with manual screeningOrdered By: Rylie Wilder on 02-04-2024 Thin prep Papanicolaou smear with manual screening 3.7 g/dL 3.2-5.0 [facility] Thin prep Papanicolaou smear with manual screening 21 U/L 15-37 [facility] Thin prep Papanicolaou smear with manual screening 4 5-15 [facility] Thin prep Papanicolaou smear with manual screening 0.72 ng/dL 0.76-1.46 [facility] Thyroid Stim Hormone (TSH)on 02-04-2024 TSH 4.55 uIU/mL High 0.358-3.74 [facility] Comment on above: Performed By: #### L 503.6550, L506.0400, L503.0105, L300.4310, L503.6150, L501.71516, L501.9520, L500.4050, L300.3900, L100.0100 #### [facility] [address] [facility] [place], [address] Vitamin B12on 02-04-2024 Cobalamin (Vitamin B12) [Mass/Vol] pg/mL High 211-911 [facility] Comment on above: Performed By: #### L 503.6550, L506.0400, L503.0105, L300.4310, L503.2050, L501.15442, L501.9520, L500.4050, L300.3900, L100.0100 #### [facility] [address] [place], [address] Basophil percentageOrdered B y: Rylie Wilder on 07-26-2023 Bilirubin [Mass/Vol] 0.30 mg/dL 0.20-1.00 [facility] Comment on above: For patients on eltr ombopag therapy, use of Dimension [place] TBIL is not recommended. Chloride [Moles/Vol] 102 mmol/L 98-107 [facility] Glucose [Mass/Vol] 117 mg/dL 74-[address] [facility] Comment on above: Fasting Glucose resu lt from 100 to 125 mg/dL suggests IMPAIRED HOMEOSTASIS per A.D.A. criteria. Potassium [Moles/Vol] 4.2 mmol/L 3.5-5.1 [facility] Protein [Mass/Vol] 7.7 g/dL 6.4-8.[address] [facility] Sodium [Moles/Vol] 137 mmol/L 136-[address] [facility] - Chemistry and C hemistry - challengeOrdered By: Rylie Wilder on 07-26-2023 ALP [Catalytic activity/Vol] 62 U/L 45-117 [facility] ALT [Catalytic activity/Vol] 26 U/L 13-56 [facility] CO2 [Moles/Vol] 28.0 mmol/L 21.0-32.0 [facility] Globulin (S) [Mass/Vol] 4.1 g/dL 2.2-4.2 [facility] Urea nitrogen/Creatinine [Mass ratio] 13.8 mg/mg 10-20 [facility] No Panel InformationOrdered By: Rylie Wilder on 07-26-2023 Estimated GFR (MDRD) Amer 80 mL/min >60 [facility] Comment on above: GFR Calc Estimated GFR (MDRD) Non-Af Amer 66 mL/min >60 [facility] Comment on above: Non- GFR Calc Serum or plasma albumin jossy urement (mass/volume)Ordered By: Rylie Wilder on 07-26-2023 Albumin [Mass/Vol] 3.6 g/dL 3.2-5.[address] [facility] Serum or plasma albumin/glob ulin mass ratioOrdered By: Rylie Wilder on 07-26-2023 Albumin/Globulin [Mass ratio] 0.9 {ratio} 0.9-2.4 [facility] Serum or plasma calcium jossy urement (mass/volume)Ordered By: Rylie Wilder on 07-26-2023 Calcium [Mass/Vol] 9.2 mg/dL 8.5-10.[address] [facility] Serum or plasma creatinine m easurement (mass/volume)Ordered By: Rylie Wilder on 07-26-2023 Creatinine [Mass/Vol] 0.87 mg/dL 0.55-1.02 [facility] Comment on above: The validity of the calculated GFR & GFRAA in patients over 70 years has not been determined. Clinical correlation is essential. Serum or plasma urea nitroge n measurement (mass/volume)Ordered By: Rylie Wilder on 07-26-2023 Urea nitrogen [Mass/Vol] 12 mg/dL 7-18 [facility] Thin prep Papanicolaou smear with manual screeningOrdered By: Rylie Wilder on 07-26-2023 Thin prep Papanicolaou smear with manual screening 22 U/L 15-37 [facility] Thin prep Papanicolaou smear with manual screening 7 5-15 [facility] Absolute lymphocyte countOrd ered By: Dr. Wilder on 03-07-2023 Lymphocytes Auto (Unsp spec) [#/Vol] 4.30 10*3/uL 0.83-4.51 [facility] Basophil percentageOrdered B y: Dr. Wilder on 03-07-2023 Basophils/100 WBC (Bld) 0.6 % 0-1 [facility] Bilirubin [Mass/Vol] 0.30 mg/dL 0.20-1.00 [facility] Comment on above: For patients on eltr ombopag therapy, use of Dimension [place] TBIL is not recommended. Chloride [Moles/Vol] 103 mmol/L 98-[address] [facility] Eosinophils/100 WBC (Bld) 1.7 % 0-5 [facility] Glucose [Mass/Vol] 168 mg/dL 74-[address] [facility] Comment on above: Fasting Glucose resu lt greater than or equal to 126 mg/dL suggests DIABETES MELLITUS per A.D.A. criteria. Neutrophils (Bld) [#/Vol] 2.8 10*3/uL 2.0-7.7 [facility] Neutrophils/100 WBC (Bld) 34.3 % 47-70 [facility] Potassium [Moles/Vol] 4.4 mmol/L 3.5-5.1 [facility] Protein [Mass/Vol] 7.9 g/dL 6.4-8.[address] [facility] Sodium [Moles/Vol] 135 mmol/L 136-[address] [facility] WBC (Bld) [#/Vol] 8.0 10*3/uL 4.4-11.[address] [facility] Blood erythrocytes count (nu mber/volume)Ordered By: Dr. Wilder on 03-07-2023 RBC (Bld) [#/Vol] 3.56 10*6/uL 4.2-5.4 [facility] Blood hemoglobin measurement (mass/volume)Ordered By: Dr. Wilder on 03-07-2023 Hemoglobin (Bld) [Mass/Vol] 10.9 g/dL 12.0-15. 0 [facility] Blood lymphocytes/100 leukoc ytesOrdered By: Dr. Wilder on 03-07-2023 Lymphocytes/100 WBC (Bld) 53.5 % 19-41 [facility] Blood monocytes/100 leukocyt esOrdered By: Dr. Wilder on 03-07-2023 Monocytes/100 WBC (Bld) 9.2 % 0-10 [facility] Blood platelet mean volumeOr dered By: Dr. Wilder on 03-07-2023 Platelet mean volume (Bld) [Entitic vol] 8.8 fL 6.2-12.0 [facility] Cerebrospinal fluid Borrelia burgdorferi 18kd IgG antibody detection by immunoblotOrdered By: Dr. Wilder on 03-07-2023 B. burgdorferi 18kD IgG IB Ql (CSF) Present . [facility] Cerebrospinal fluid Borrelia burgdorferi 23kD IgG antibody detection by immunoblotOrdered By: Dr. Wilder on 03-07-2023 B. burgdorferi 23kD IgG IB Ql (CSF) Present . [facility] Cerebrospinal fluid Borrelia burgdorferi 23kD IgM antibody detection by immunoblotOrdered By: Dr. Wilder on 03-07-2023 B. burgdorferi 23kD IgM IB Ql (CSF) Present . [facility] Cerebrospinal fluid Borrelia burgdorferi 28kD IgG antibody detection by immunoblotOrdered By: Dr. Wilder on 03-07-2023 B. burgdorferi 28kD IgG IB Ql (CSF) Absent . [facility] Cerebrospinal fluid Borrelia burgdorferi 39kD IgG antibody detection by immunoblotOrdered By: Dr. Wilder on 03-07-2023 B. burgdorferi 39kD IgG IB Ql (CSF) Present . [facility] Cerebrospinal fluid Borrelia burgdorferi 39kD IgM antibody detection by immunoblotOrdered By: Dr. Wilder on 03-07-2023 B. burgdorferi 39kD IgM IB Ql (CSF) Present . [facility] Cerebrospinal fluid Borrelia burgdorferi 41kD IgM antibody detection by immunoblotOrdered By: Dr. Wilder on 03-07-2023 B. burgdorferi 41kD IgM IB Ql (CSF) Present . [facility] Determination of erythrocyte mean corpuscular volume (MCV)Ordered By: Dr. Wilder on 03-07-2023 MCV (RBC) [Entitic vol] 93.5 fL 81-99 [facility] Hematocrit Auto (Bld) [Volum e fraction]Ordered By: Dr. Wilder on 03-07-2023 Hematocrit (Bld) [Volume fraction] 33.3 % 37-47 [facility] - Chemistry and C hemistry - challengeOrdered By: Dr. Wilder on 03-07-2023 ALP [Catalytic activity/Vol] 79 U/L 45-117 [facility] ALT [Catalytic activity/Vol] 35 U/L 13-56 [facility] CO2 [Moles/Vol] 26.0 mmol/L 21.0-32.0 [facility] Globulin (S) [Mass/Vol] 4.8 g/dL 2.2-4.2 [facility] Urea nitrogen/Creatinine [Mass ratio] 7.9 mg/mg 10-20 [facility] - Hematology and Cell countsOrdered By: Dr. Wilder on 03-07-2023 Erythrocyte distribution width (RBC) [Entitic vol] 52.6 fL 35.1-43.[address] [facility] Erythrocyte distribution width (RBC) [Ratio] 15.4 % 11.6-14.6 [facility] Immature granulocytes/100 WBC (Bld) 0.700 % 0.0-0.9 [facility] Comment on above: IG% - Immature Granu locytes (promyelocytes, myelocytes and metamyelocytes) > 1% indicates that a LEFT SHIFT is Present. MCH (RBC) [Entitic mass] 30.6 pg 27.0-32.0 [facility] Nucleated RBC/100 WBC (Bld) [Ratio] 0 % 0-5 [facility] MCHC Auto (RBC) [Mass/Vol]Or dered By: Dr. Wilder on 03-07-2023 MCHC (RBC) [Mass/Vol] 32.7 g/dL 32-36 [facility] No Panel InformationOrdered By: Dr. Wilder on 03-07-2023 Estimated GFR (MDRD) Amer 94 mL/min >60 [facility] Comment on above: GFR Calc Estimated GFR (MDRD) Non-Af Amer 77 mL/min >60 [facility] [facility] Comment on above: Non- GFR Calc Lyme Disease IgG Ab 30 kDa Band Absent . [facility] Lyme Disease IgG Ab 93 kDa Band Present . [facility] Lyme Disease IgG [place] Interp Positive . [facility] Comment on above: Positive: 5 of the f ollowing Borrelia-specific bands: 18,23,28,30,39,41,45,58, 66, and 93. Negative: No bands or banding patterns which do not meet positive criteria. Lyme Disease IgM Ab (Western Blot) Positive . [facility] Comment on above: Note: An equivocal o r positive EIA result followed by anegative Line Blot result is considered NEGATIVE. Anequivocal or positive EIA result followed by a positiveLine Blot is considered POSITIVE by the CDC.Positive: 2 of the following bands: 23,39 or 41Negative: No bands or banding patterns which do not meetpositive criteria.Criteria for positivity are those recommended byCDC/ASTPHLD. p23=Osp C, [id number]:Sera from individuals with the following may cross reactin the Lyme Line Blot assays: other spirochetal diseases(periodontal disease, leptospirosis, relapsing fever, yaws,and pinta); connective autoimmune (Rheumatoid Arthritis andSystemic Lupus Erythematosus and also individuals withAntinuclear Antibody); other infections (Reyes MountainSpotted Fever; Kash-Aviles Virus, and Cytomegalovirus).Please Note: Lyme immunoblot alone is not recommended forthe diagnosis of Lyme disease. Current guidelines recommendthe use of a two-tiered approach to Lyme serology testingto improve the sensitivity and specificity of testing.[employer] offers test code 612369 Lyme Disease Serology withReflex to aid in the diagnosis of Lyme Disease.Performed at: [address] [id number] Director: Cedrick Sam MD, Phone: [phone] Platelets bldOrdered By: Dr. Wilder on 03-07-2023 Platelets (Bld) [#/Vol] 487 10*3/uL 150-450 [facility] Serum Borrelia burgdorferi 4 1kD IgG antibody detection by immunoblotOrdered By: Dr. Wilder on 03-07-2023 B. burgdorferi 41kD IgG IB Ql (S) Present . [facility] Serum Borrelia burgdorferi 6 6kD IgG antibody detection by immunoblotOrdered By: Dr. Wilder on 03-07-2023 B. burgdorferi 66kD IgG IB Ql (S) Absent . [facility] Serum or plasma albumin jossy urement (mass/volume)Ordered By: Dr. Wilder on 03-07-2023 Albumin [Mass/Vol] 3.1 g/dL 3.2-5.[address] [facility] Serum or plasma albumin/glob ulin mass ratioOrdered By: Dr. Wilder on 03-07-2023 Albumin/Globulin [Mass ratio] 0.6 {ratio} 0.9-2.4 [facility] Serum or plasma calcium jossy urement (mass/volume)Ordered By: Dr. Wilder on 03-07-2023 Calcium [Mass/Vol] 9.1 mg/dL 8.5-10.[address] [facility] Serum or plasma creatinine m easurement (mass/volume)Ordered By: Dr. Wilder on 03-07-2023 Creatinine [Mass/Vol] 0.76 mg/dL 0.55-1.02 [facility] Comment on above: The validity of the calculated GFR & GFRAA in patients over 70 years has not been determined. Clinical correlation is essential. Serum or plasma urea nitroge n measurement (mass/volume)Ordered By: Dr. Wilder on 03-07-2023 Urea nitrogen [Mass/Vol] 6 mg/dL 7-18 [facility] Synovial fluid Borrelia gabrielle dorferi 45kD IgG antibody detection by immunoblotOrdered By: Dr. Wilder on 03-07-2023 B. burgdorferi 45kD IgG IB Ql (Syn fld) Absent . [facility] Synovial fluid Borrelia gabrielle dorferi 58kD IgG antibody detection by immunoblotOrdered By: Dr. Wilder on 03-07-2023 B. burgdorferi 58kD IgG IB Ql (Syn fld) Present . [facility] Thin prep Papanicolaou smear with manual screeningOrdered By: Dr. Wilder on 03-07-2023 Thin prep Papanicolaou smear with manual screening 30 U/L 15-37 [facility] Thin prep Papanicolaou smear with manual screening 6 5-15 [facility] Laboratory - Microbiology an d Antimicrobial susceptibilityOrdered By: Bro Hoyt on 02-28-2023 Bacteria identified Cx Nom (Bld) No growth in 5 days. [facility] Throat Streptococcus pyogene s antigen detection by immunofluorescenceOrdered By: Dr. Abarca on 02-26-2023 S. pyogenes Ag IF Ql (Throat) [facility] Absolute lymphocyte countOrd ered By: Dr. Abarca on 02-24-2023 Lymphocytes Auto (Unsp spec) [#/Vol] 2.63 10*3/uL 0.83-4.51 [facility] Basophil percentageOrdered B y: Dr. Abarca on 02-24-2023 Basophils/100 WBC (Bld) 0.5 % 0-1 [facility] Chloride [Moles/Vol] 106 mmol/L 98-107 [facility] Eosinophils/100 WBC (Bld) 0.2 % 0-5 [facility] Glucose [Mass/Vol] 148 mg/dL 74-[address] [facility] Comment on above: Fasting Glucose resu lt greater than or equal to 126 mg/dL suggests DIABETES MELLITUS per A.D.A. criteria. Neutrophils (Bld) [#/Vol] 5.4 10*3/uL 2.0-7.7 [facility] Neutrophils/100 WBC (Bld) 62.0 % 47-70 [facility] Potassium [Moles/Vol] 4.3 mmol/L 3.5-5.1 [facility] Sodium [Moles/Vol] 136 mmol/L 136-[address] [facility] WBC (Bld) [#/Vol] 8.7 10*3/uL 4.4-11.[address] [facility] Blood erythrocytes count (nu mber/volume)Ordered By: Dr. Abarca on 02-24-2023 RBC (Bld) [#/Vol] 3.86 10*6/uL 4.2-5.4 [facility] Blood hemoglobin measurement (mass/volume)Ordered By: Dr. Abarca on 02-24-2023 Hemoglobin (Bld) [Mass/Vol] 12.5 g/dL 12.0-15. 0 [facility] Blood lymphocytes/100 leukoc ytesOrdered By: Dr. Abarca on 02-24-2023 Lymphocytes/100 WBC (Bld) 30.2 % 19-41 [facility] Blood monocytes/100 leukocyt esOrdered By: Dr. Abarca on 02-24-2023 Monocytes/100 WBC (Bld) 6.8 % 0-10 [facility] Blood platelet mean volumeOr dered By: Dr. Abarca on 02-24-2023 Platelet mean volume (Bld) [Entitic vol] 8.6 fL 6.2-12.0 [facility] Determination of erythrocyte mean corpuscular volume (MCV)Ordered By: Dr. Abarca on 02-24-2023 MCV (RBC) [Entitic vol] 94.3 fL 81-99 [facility] Glucose Glucometer (BldC) [M ass/Vol]Ordered By: Dr. Abarca on 02-24-2023 Glucose [Mass/Vol] 220 mg/dL 74-[address] [facility] Comment on above: MANAGEMENT OF PATIEN T CARE PER NURSING PROTOCOL Hematocrit Auto (Bld) [Volum e fraction]Ordered By: Dr. Abarca on 02-24-2023 Hematocrit (Bld) [Volume fraction] 36.4 % 37-47 [facility] Laboratory - Chemistry and C hemistry - challengeOrdered By: Dr. Abarca on 02-24-2023 CO2 [Moles/Vol] 24.0 mmol/L 21.0-32.0 [facility] Urea nitrogen/Creatinine [Mass ratio] 7.3 mg/mg 10-20 [facility] Laboratory - Hematology and Cell countsOrdered By: Dr. Abarca on 02-24-2023 Erythrocyte distribution width (RBC) [Entitic vol] 55.5 fL 35.1-43.[address] [facility] Erythrocyte distribution width (RBC) [Ratio] 16.1 % 11.6-14.6 [facility] Immature granulocytes/100 WBC (Bld) 0.300 % 0.0-0.9 [facility] Comment on above: IG% - Immature Granu locytes (promyelocytes, myelocytes and metamyelocytes) > 1% indicates that a LEFT SHIFT is Present. MCH (RBC) [Entitic mass] 32.4 pg 27.0-32.0 [facility] Nucleated RBC/100 WBC (Bld) [Ratio] 0 % 0-5 [facility] MCHC Auto (RBC) [Mass/Vol]Or dered By: Dr. Abarca on 02-24-2023 MCHC (RBC) [Mass/Vol] 34.3 g/dL 32-36 [facility] No Panel InformationOrdered By: Dr. Abarca on 02-24-2023 Estimated Creatinine Clearance Calc 32.17 ml/min [facility] Estimated GFR (MDRD) Amer 106 mL/min >60 [facility] Comment on above: GFR Calc Estimated GFR (MDRD) Non-Af Amer 87 mL/min >60 [facility] Comment on above: Non- GFR Calc Platelets bldOrdered By: Dr. Abarca on 02-24-2023 Platelets (Bld) [#/Vol] 492 10*3/uL 150-450 [facility] Serum or plasma calcium jossy urement (mass/volume)Ordered By: Dr. Abarca on 02-24-2023 Calcium [Mass/Vol] 8.8 mg/dL 8.5-10.[address] [facility] Serum or plasma creatinine m easurement (mass/volume)Ordered By: Dr. Abarca on 02-24-2023 Creatinine [Mass/Vol] 0.68 mg/dL 0.55-1.02 [facility] Comment on above: The validity of the calculated GFR & GFRAA in patients over 70 years has not been determined. Clinical correlation is essential. Serum or plasma urea nitroge n measurement (mass/volume)Ordered By: Dr. Abarca on 02-24-2023 Urea nitrogen [Mass/Vol] 5 mg/dL 7-18 [facility] Thin prep Papanicolaou smear with manual screeningOrdered By: Dr. Abarca on 02-24-2023 Thin prep Papanicolaou smear with manual screening 6 5-15 [facility] Basophil percentageOrdered B y: Dr. Devries on 02-23-2023 Bilirubin [Mass/Vol] 0.40 mg/dL 0.20-1.00 [facility] Comment on above: For patients on eltr ombopag therapy, use of [facility] [place] TBIL is not recommended. Protein [Mass/Vol] 7.1 g/dL 6.4-8.[address] [facility] Laboratory - Chemistry and C hemistry - challengeOrdered By: Dr. Devries on 02-23-2023 ALP [Catalytic activity/Vol] 157 U/L 45-117 [facility] ALT [Catalytic activity/Vol] 154 U/L 13-56 [facility] Globulin (S) [Mass/Vol] 4.3 g/dL 2.2-4.2 [facility] Serum or plasma albumin jossy urement (mass/volume)Ordered By: Dr. Devries on 02-23-2023 Albumin [Mass/Vol] 2.8 g/dL 3.2-5.[address] [facility] Serum or plasma albumin/glob ulin mass ratioOrdered By: Dr. Devries on 02-23-2023 Albumin/Globulin [Mass ratio] 0.7 {ratio} 0.9-2.4 [facility] Thin prep Papanicolaou smear with manual screeningOrdered By: Dr. Devries on 02-23-2023 Thin prep Papanicolaou smear with manual screening 78 U/L 15-37 [facility] Basophil percentageOrdered B y: Bro Hoyt on 02-22-2023 Basophil percentage 0 SEEN /hpf 0-5 [facility] Bilirubin Test strip Ql (U)O rdered By: Bro Hoyt on 02-22-2023 Bilirubin Ql (U) Negative Negative [facility] Blood manual differential co mment interpretation (narrative result)Ordered By: Bro Hoyt on 02-22-2023 Manual differential comment Jesse (Bld) [Interp] SCANNED [facility] Influenza virus A and B and SARS-CoV-2 (COVID-19) Ag panel - Upper respiratory specimOrdered By: Bro Hoyt on 02-22-2023 SARS-CoV-2 & FLU Antigen (Rapid) SARS-CoV-2 (COVID 19) [facility] Ketones Test strip Ql (U)Ord ered By: Bro Hoyt on 02-22-2023 Ketones Ql (U) Negative Negative [facility] Mucus LM Ql (Urine sed)Order ed By: Bro Hoyt on 02-22-2023 Mucus Ql (Urine sed) 0 SEEN /hpf [facility] Nitrite Test strip Ql (U)Ord ered By: Bro Hoyt on 02-22-2023 Nitrite Ql (U) Negative Negative [facility] Protein Test strip Ql (U)Ord ered By: Bro Hoyt on 02-22-2023 Protein Ql (U) Negative Negative [facility] Squamous epithelial cells de tection in urine sediment by light microscopyOrdered By: Bro Hoyt on 02-22-2023 Epithelial cells.squamous LM Ql (Urine sed) 0 SEEN /hpf 5-10 [facility] Urine blood detectionOrdered By: Bro Hoyt on 02-22-2023 RBC Ql (U) Negative Negative [facility] RBC Ql (U) 0 SEEN /hpf 0-5 [facility] Urine clarityOrdered By: Makenna Hoyt on 02-22-2023 Clarity (U) Clear Clear [facility] Urine color determinationOrd ered By: Bro Hoyt on 02-22-2023 Color (U) Yellow Yellow [facility] Urine glucose detectionOrder ed By: Bro Hoyt on 02-22-2023 Glucose Ql (U) Normal mg/dl Normal [facility] Urine leukocyte esterase det ection by dipstickOrdered By: Bro Hoyt on 02-22-2023 Leukocyte esterase Test strip Ql (U) Negative Negative [facility] Urine pHOrdered By: Bro stewart on 02-22-2023 pH (U) 7.0 [pH] 5.0 - 8.0 [facility] Urine sediment bacteria coun t by microscopy (number/high power field)Ordered By: Bro Hoyt on 02-22-2023 Bacteria LM.HPF (Urine sed) [#/Area] 0 /[HPF] None Seen [facility] Urine specific gravity measu rementOrdered By: Bro Hoyt on 02-22-2023 Specific gravity (U) [Rel density] 1.005 1.002-1.030 [facility] Urobilinogen Auto test strip Ql (U)Ordered By: Bro Hoyt on 02-22-2023 Urobilinogen Ql (U) Normal mg/dl Normal [facility] Fungus cultureOrdered By: Dr Tanya Galindo on 01-10-2023 Fungus identified Cx Nom (Unsp spec) [facility] Routine wound cultureOrdered By: Dr. Galindo on 12-14-2022 Bacteria identified Cx Nom (Wound) No growth aerobically. [facility] Gram stain for investigation of transfusion reactionOrdered By: Dr. Galindo on 12-12-2022 Microscopic observation Gram stain Nom (Unsp spec) [facility] Interpretation of Borrelia b urgdorferi antibody assayon 07-20-2022 B. burgdorferi Ab (S) [Interp] REF LAB [facility] Work Phone: Thin prep Papanicolaou smear with manual screeningon 07-20-2022 Thin prep Papanicolaou smear with manual screening See comment [facility] Work Phone: Comment on above: TEST RESULT LIMITSLy me Disease Serology w/ReflexLyme Total Antibody DENNY Positive NegativeEvidence of Lyme antibodies; confirmation indicated. See Lyme IgG and Lyme IgM results (reflex testing), and Lyme interpretation for final interpretation of the Lyme serology reflex algorithm.Lyme IgG DENNY Positive NegativeLyme IgM DENNY Positive NegativeLyme Interpretation Abnormal Lyme IgM/IgG Abs DetectedResults are consistent with B. burgdorferi infection (Lyme disease) in the recent or remote past. IgG-class antibodies may remain detectable for months to years following resolution of infection.Results should not be used to monitor or establish adequate response to therapy. Response to therapy is confirmed through resolution of clinical symptoms; additional laboratory testing should not be performed. If both tests are equivocal consider repeat testing in 7 to 14 days if clinically warranted. TESTING PERFORMED AT [facility]. ORIGINAL REPORT ON FILE IN LAB CONTAINS ADDITIONAL TEST SITE INFORMATION. EMERGENCY REPORTon 0 EMERGENCY REPORT [facility] EMERGENCY ROOM REPORT NAME ACCOUNT SEX AGE ADMIT DISCHARGE PT MED. RECORD# NUMBER DATE DATE TYPE MINDA [id number] F 79 06/23/20 06/23/20 3 SYLVAIN [id number] ROOM: ER DATE OF : 1940 DICTATING PHYSICIAN: Raquel Santos CHIEF COMPLAINT: Cat scratch to her right thumb. HISTORY OF PRESENT ILLNESS: This is an 79-year-old female who states that yesterday she saw a raccoon biting the back end of a small kitten. She went out to grab the kitten and the kitten scratched her and the raccoon let go of the cat and took out. She was not worried about it, but her family said she better be evaluated. She is not up-to-date on her tetanus. She is not complaining of any pain, and she has a tiny little marked where she was scratched on her right thumb. No redness or swelling up into the arm or arm pain. No fever, chills, cough, chest pain, or shortness of breath. No nausea, vomiting, abdominal pain, or diarrhea. PAST MEDICAL HISTORY: Fyh-[id number] nt diabetes, Lyme's disease, atrial fibrillation. PAST SURGICAL HISTORY: None. MEDICATIONS: See nursing notes. FAMILY HISTORY: Noncontributory. SOCIAL HISTORY: Negative for alcohol, tobacco, or illicit drug abuse. REVIEW OF SYSTEMS: Ten systems reviewed and present above in the HPI. PHYSICAL EXAMINATION: Vital signs: Blood pressure 181/92, pulse 80, respiratory rate 18, temperature 97.9, O2 saturation 96% on room air. General: She is awake, alert, nontoxic. Heart rate and rhythm are regular without murmur, gallop, or rub. Lungs: Clear to auscultation bilaterally without wheeze, rales, or rhonchi. Right thumb has a small josep on it. I do not see any redness, swelling, drainage, lymphangitis or axillary lymphadenopathy. EMERGENCY DEPARTMENT COURSE AND TREATMENT: I updated her on her tetanus and started her on Augmentin. DIAGNOSIS: Cat scratch right thumb. Page 1 of 2 MINDA, Emergency Room Report SYLVAIN ARCINIEGA : 1940 PLAN/DISPOSITION: She is to have 2 day primary care physician followup. Return for increasing, worsening, or new symptoms. Dictated By: Raquel Santos DO 06/23/20 14:33 JOB #: [id number] Transcribed By: am 06/23/20 18:17 Electronically signed by: E-Sign: RAQUEL SANTOS MD 06/24/20 09:08 Page 2 of 2 [facility] Report SY[facility] Vital Signs Date Time Vital Sign Value Performing Clinician Faci lity 02-24-2023 12:03-0400 Body temperature 99.1 [degF] Dr. Rylie Wilder Work Phone: [facility] 02-24-2023 12:03-0400 Diastolic blood pressure 56 mm[Hg] Dr. Rylie Wilder Work Phone: [facility] 02-24-2023 12:03-0400 Heart rate 75 /min Dr. Rylie Wilder Work Phone: [facility] 02-24-2023 12:03-0400 Respiratory rate 18 /min Dr. Rylie Wilder Work Phone: [facility] 02-24-2023 12:03-0400 SaO2% (BldA) [Mass fraction] 96 % Dr. Rylie Wilder Work Phone: [facility] 02-24-2023 12:03-0400 Systolic blood pressure 113 mm[Hg] Dr. Rylie Wilder Work Phone: [facility] 02-22-2023 20:31-0400 Body height 154.[address] Rylie Wilder Work Phone: [facility] 02-22-2023 20:31-0400 Body mass index (BMI) [Ratio] 26.9 kg/m2 Dr. Rylie Wilder Work Phone: [facility] 02-22-2023 20:31-0400 Body weight 64.[address] Rylie Wilder Work Phone: [facility] 10-26-2022 14:51-0500 Body height 154.[address] Rylie Wilder Work Phone: [facility] 10-26-2022 14:51-0500 Body mass index (BMI) [Ratio] 28 kg/m2 Dr. Rylie Wilder Work Phone: [facility] 10-26-2022 14:51-0500 Body weight 67.[address] Rylie Wilder Work Phone: [facility] 10-26-2022 14:51-0500 Diastolic blood pressure 68 mm[Hg] Dr. Rylie Wilder Work Phone: [facility] 10-26-2022 14:51-0500 Heart rate 68 /min Dr. Rylie Wilder Work Phone: [facility] 10-26-2022 14:51-0500 Respiratory rate 18 /min Dr. Rylie Wilder Work Phone: [facility] 10-26-2022 14:51-0500 Systolic blood pressure 140 mm[Hg] Dr. Rylie Wilder Work Phone: [facility] 07-27-2022 13:42-0400 Body height 154.[address] Rylie Wilder Work Phone: [facility] Work Phone: 07-27-2022 13:42-0400 Body mass index (BMI) [Ratio] 28.9 kg/m2 Dr. Rylie Wilder Work Phone: [facility] Work Phone: 07-27-2022 13:42-0400 Body weight 69.[address] Rylie Wilder Work Phone: [facility] Work Phone: 07-27-2022 13:42-0400 Diastolic blood pressure 62 mm[Hg] Dr. Rylie Wilder Work Phone: [facility] Work Phone: 07-27-2022 13:42-0400 Heart rate 72 /min Dr. Rylie Wilder Work Phone: [facility] Work Phone: 07-27-2022 13:42-0400 Respiratory rate 16 /min Dr. Rylie Wilder Work Phone: [facility] Work Phone: 07-27-2022 13:42-0400 Systolic blood pressure 140 mm[Hg] Dr. Rylie Wilder Work Phone: [facility] Work Phone: Encounters Encounter Date Encounter Type Care Provider Facility Start: 06-29-2025 End: 06-29-2025 ambulatory [id number] DAVID SNYDER MD Facility:[facility] Start: 12-25-2024 End: 12-25-[address] Rylie Wilder DO Work Phone: [facility] Work Phone: Start: 12-25-2024 End: 12-25-[address] Rylie Wilder DO -[facility] Start: 12-25-2024 End: 12-25-2024 ambulatory Rylie Wilder Facility:[facility] Start: 07-04-2024 End: 07-04-2024 Emergency department patient visit Rylie Wilder Facility:[facility] Start: 02-04-2024 End: 02-04-2024 ambulatory [facility] Work Phone: Start: 02-04-2024 End: 02-04-2024 Patient encounter procedure [facility] Work Phone: Start: 02-04-2024 End: 02-04-2024 ambulatory Rylie Wilder Facility:[facility] Start: 07-26-2023 End: 07-26-2023 ambulatory [facility] Work Phone: Start: 07-26-2023 End: 07-26-2023 Patient encounter procedure [facility] Work Phone: Start: 03-07-2023 End: 03-07-[address] Rylie Wilder Work Phone: [facility] Work Phone: Start: 03-07-2023 End: 03-07-[address] Rylie Wilder Work Phone: [facility] Start: 02-24-2023 Non-patient / Non-visit Dr. Rylie Wilder Work Phone: [facility] Start: 02-23-2023 Non-patient / Non-visit Dr. Rylie Wilder Work Phone: [facility] Start: 02-22-2023 End: 02-24-2023 Evaluation and management of inpatient [facility] Start: 12-11-2022 End: 12-11-[address] Rylie Wilder Work Phone: [facility] Work Phone: Start: 12-11-2022 End: 12-11-[address] [facility] Start: 10-26-2022 End: 01-26-[address] Rylie Wilder Work Phone: [facility] Start: 07-27-2022 End: 07-27-[address] Rylie Wilder Work Phone: [facility] Start: 07-20-2022 End: 07-20-[address] Rylie Wilder Work Phone: [facility] Work Phone: Start: 07-20-2022 End: 07-20-[address] [facility]yl[facility] Wilder Work Phone: [facility] [facility] Start: 07-18-2022 Non-patient / Non-visit Dr. Rylie Wilder Work Phone: [facility] Start: 06-23-2020 End: 06-23-2020 Emergency department patient visit [facility] Procedures Date Procedure Procedure Detail Performing Clinician Start: 02-22-2023 Plain chest X-ray Dr. Donovan Wilder Work Phone: Bacteria identified in Blood by Culture Dr. Rylie Wilder Work Phone: Investigation of transfusion reaction Dr. Rylie Wilder Work Phone: Microbial culture, routine D yuliya Wilder Work Phone: Mycology culture Dr. Rylie cerna Work Phone: SARS-CoV-2 & FLU Ant igen (Rapid) Dr. Rylie Wilder Work Phone: Streptococcus pyogen es antigen assay Dr. Rylie Wilder Work Phone: Plan of Treatment Date Care Activity Detail Author Start: 12-25-2024 Borrelia burgdorferi blot test [facility] Start: 07-26-2023 Borrelia burgdorferi blot test [facility] Start: 02-24-2023 Patient discharge [facility] Start: 02-22-2023 Referral to service [facility] Start: 02-22-2023 Following clinical p athway protocol [facility] Start: 02-22-2023 Assessment of risk o f venous thromboembolism [facility] Start: 02-22-2023 Insertion of cathete r into peripheral vein [facility] Start: 02-22-2023 Providing care accor ding to standard [facility] Start: 02-22-2023 Referral to occupati onal therapist [facility] Start: 02-22-2023 Referral to service [facility] Start: 02-22-2023 [facility] Start: 02-22-2023 Admission procedure [facility] Start: 12-11-2022 [facility] Laboratory data interpretation [facility] Laboratory data interpretation [facility] Patient referral [facility] Work Phone: Payers Date Payer Category Payer Private Health Insurance [id number] 2024 Self-pay [id number] 2004 Medicare [id number] 1940 Unknown [id number] 1940 Unknown [id number] Unknown [id number] Unknown [id number] Unknown [id number] Social History Date Type Detail Facility Start: 07-27-2022 End: 02-22-2023 Tobacco smoking status NHIS Unknown if ever smoked [facility] Start: 1940 Sex Assigned At Female [facility] Start: 07-04-2024 Tobacco smoking stat us CAIS Never smoked tobacco (finding) [facility] Start: 12-30-2024 Sex Female (finding) [facility] Goals Date Patient Goal Desired Activity /State Functional Status Date Assessment Result Facility 02-24-2023 Functional status Ambulates [facility] Work Phone: Mental Status Date Assessment Result Facility 02-24-2023 Cognitive function Appropriate;Cooperativ e [facility] Work Phone: Evaluation note Note Date & Type Note Facility Evaluation note Diagnosis Onset Date Essential hypertension acute Mixed hyperlipidemia acute Non-rheumatic mitral regurgitation acute Non-rheumatic tricuspid valve insufficiency acute Paroxysmal atrial fibrillation acute Syncope and collapse acute [facility] Work Phone: Evaluation note Note Date & Type Note Facility Evaluation note Diagnosis Onset Date COVID-19 acute Thrombocytosis acute Acute hyponatremia resolved Transaminitis resolved Weakness resolved [facility] Work Phone: Evaluation note Note Date & Type Note Facility Evaluation note No assessment information availa ble [facility] Work Phone: Reason for referral (narrative) Note Date & Type Note Facility Reason for referral (narrative) No reason for referral information available [facility] Work Phone: Summary Purpose Family History No Family History Records Found Relationship Condition Age at Onset Recorded Date/T curry mother Malignant neoplasm Unknown brother Diabetes mellitus Unknown Malignant neoplasm Unknown sister Hypertension Unknown Advance Directives No Advanced Directives Records Found Advance Directive Response Recorded Date/ Time Name of Medical Power of Clinical Applications Manager Abel phipps February 22, 2023 8:43pm Living Will Yes February 22, 2023 8 :43pm Power of Clinical Applications Manager Yes February 22, 2023 8:43pm Advance Directive Response Recorded Date/ Time Living Will Yes February 22, 2023 8 :43pm Power of Clinical Applications Manager Yes February 22, 2023 8:43pm Chief Complaint and Reason for Visit Chief Complaint Amb Documentation SYNCOPE/REF. MALYS Reason for Visit Essential hypertensi on Mixed hyperlipidemia Non-rheumatic mitral regurgitation Non-rheumatic tricuspid valve insufficiency Paroxysmal atrial fibrillation Syncope and collapse Chief Complaint 3 M FU Reason for Visit Essential hypertensi on Mixed hyperlipidemia Non-rheumatic mitral regurgitation Non-rheumatic tricuspid valve insufficiency Paroxysmal atrial fibrillation Syncope and collapse Chief Complaint GENERALIZED WEAKNESS GENERALIZED WEAKNESS GENERALIZED WEAKNESS Reason for Visit COVID-19 Thrombocytosis Acute hyponatremia Transaminitis Weakness Additional Source Comments INFORMATION SOURCE (unrecogn ized section and content) DATE [facility] DATE CREATED AUTHOR AUTHOR'S ORGANIZ ATION 01/12/2025 [place] DATE CREATED AUTHOR AUTHOR'S ORGANIZ ATION 07/05/2025 [facility] ospital Goals (unrecognized section and content) Goals may be documented in a n alternate sectionGoals may be documented in an alternate sectionGoals may be documented in an alternate sectionGoals may be documented in an alternate sectionGoals may be documented in an alternate section Care Teams (unrecognized sec tion and content) Team Status: Active Member Role Status Dates Dr. Rylie Widler DO Family Provider Active Dr. Rylie Wilder DO Primary Care Provider Active Team Status: Inactive Member Role Status Dates Dr. Rylie Wilder DO Primary Care Provider, Referring P akhil Active Dr. Bro Simms MD Attending Provider Active Team Status: Inactive Member Role Status Dates Dr. Rylie Wilder DO Primary Care Provider Active Dr. Julia Galindo MD Attending Provider Active Team Status: Active Member Role Status Dates Dr. Rylie Wilder DO Primary Care Provider Active Dr. Bro Coppola MD Emergency Provider Active Dr. Frederick Devries MD Admit Provider, Other Provide r Active Dr. Jo Abarca DO Attending Provider, Other Provide r Active Team Status: Inactive Member Role Status Dates Dr. Rylie Wilder DO Primary Care Provider Active Dr. rBo Coppola MD Emergency Provider Active Dr. Frederick Devries MD Admit Provider, Other Provide r Active Dr. Jo Abarca DO Attending Provider Active Team Status: Inactive Member Role Status Dates Dr. Rylie Wilder DO Primary Care Provide r, Attending Provider, Referring Provider Active Team Status: Inactive Member Role Status Dates Dr. Rylie Wilder DO Primary Care Provider Active Start: December 25, 2024 End: December 25, 2024 Dr. Rylie Wilder DO Attending Provider Active St art: December 25, 2024 End: December 25, 2024 Dr. Rylie Wilder DO Referring Provider Active St art: December 25, 2024 End: December 25, 2024 FOR RECORDS PERTAINING TO PATIENTS WHO ARE OR HAVE BEEN ENROLLED IN A CHEMICAL DEPENDENCY/SUBSTANCEABUSE PROGRAM, SOME INFORMATION MAY BE OMITTED. This clinical summary was aggregated from multiple sources. Caution should be exercised in using it in the provision of clinical care. This summary normalizes information from multiple sources, and as a consequence, information in this document may materially change the coding, format and clinical context of patient data. In addition, data may be omitted in some cases. CLINICAL DECISIONS SHOULD BE BASED ON THE PRIMARY CLINICAL RECORDS. [facility] [employer] [facility]. provides no warranty or guarantee of the accuracy or completeness of information in this document.
== END 2025-09-10 16:30 | disposition home or self-care (01) ==
PROVIDERS: Emergency Provider Student in an Organized Health Care Education/Training Program; PCP Family Medicine; Visit Provider Student in an Organized Health Care Education/Training Program
DX: S93.402A Sprain of unspecified ligament of left ankle, initial encounter (principal); I48.0 Paroxysmal atrial fibrillation; E11.9 Type 2 diabetes mellitus without complications; I10 Essential (primary) hypertension; M79.89 Other specified soft tissue disorders; Z79.01 Long term (current) use of anticoagulants; W19.XXXA Unspecified fall, initial encounter
CPT/HCPCS: 70450; 72125; 73590; 73610; 73630; 93971; 99282